=== PATIENT | female | born 1985 | race Caucasian/White ===

== ENCOUNTER 2020-09-30 07:50 | Outpatient (REF) | payer OTHER, SELFPAY ==
[2020-09-30 08:12] LABS: MANUAL DIFF FLAG NO
[2020-09-30 08:15] LABS: Basophils Absolute Auto 0.1 X10*3/uL (0.0-0.2); Basophils Percent Auto 0.9 % (0-2); Eosinophils Absolute Auto 0.1 X10*3/uL (0.0-0.4); Eosinophils Percent Auto 2.2 % (0-4); Hematocrit 39.3 % (37-47); Hemoglobin 13.1 g/dl (12.0-16.0); Imm Gran Abs Auto 0.01 X10*3/uL (0.00-0.03); Imm Gran Pct Auto 0.2 % (0.0-0.4); Lymphocytes Absolute Auto 1.7 X10*3/uL (1.2-4.9); Lymphocytes Percent Auto 31.1 % (20-40); Mean Corpuscular HGB Conc 33.3 g/dl (31.0-35.0); Mean Corpuscular Hemoglobin 29.7 pg (27.0-33.0); Mean Corpuscular Volume 89.1 fL (80-98); Mean Platelet Volume 9.4 fL (9.4-12.3); Monocytes Absolute Auto 0.4 X10*3/uL (0.1-1.2); Neutrophils Absolute Auto 3.2 X10*3/uL (2.0-8.3); Neutrophils Percent Auto 58.6 % (45-73); Platelet Count 249 X10*3/uL (160-400); Red Blood Count 4.41 X10*6/uL (4.20-5.50); Red Cell Distribution Width 12.6 % (11.0-16.0); White Blood Count 5.4 X10*3/uL (4.8-10.8)
[2020-09-30 08:42] LABS: Alanine Aminotransferase 11 U/L (0-31); Albumin Level 4.1 g/dL (3.5-5.0); Alkaline Phosphatase 56 U/L (39-117); Anion Gap 11 (12-20); Aspartate Amino Transferase 12 U/L (5-31); Bilirubin Total 0.5 mg/dL (0.0-1.0); Blood Urea Nitrogen 14 mg/dL (9-16); Calcium 8.6 mg/dL (8.4-10.2); Carbon Dioxide 26 mmol/L (22-29); Chloride 107 mmol/L (96-108); Cholesterol 150 mg/dL; Estimated Glomerular Filt Rate > 60; Glucose Fasting 89 mg/dL (60-99); HDL Cholesterol 60 mg/dL; LDL Cholesterol Calculated 76 mg/dl; Potassium 4.2 mmol/L (3.3-5.1); Sodium 140 mmol/L (135-145); Total Protein 6.2 g/dL (6.5-8.0); Triglycerides 73 mg/dL
== END 2020-09-30 07:51 | disposition home or self-care (01) ==
LOC: HO.LAB 07:50
PROVIDERS: PCP Internal Medicine; Visit Provider Internal Medicine
DX: Z00.00 Encounter for general adult medical examination without abnormal findings (principal); R31.1 Benign essential microscopic hematuria
CPT/HCPCS: 36415; 80053; 80061; 85025

== ENCOUNTER 2021-10-02 08:40 | Outpatient (REF) | payer OTHER, SELFPAY ==
[2021-10-02 09:06] LABS: MANUAL DIFF FLAG NO
[2021-10-02 09:27] LABS: Appearance Urine CLEAR; Color Urine YELLOW; Glucose Urine UA NEG (NEG); Leukocyte Esterase Urine NEG (NEG); Nitrite Urine NEG (NEG); PH 6.5 (5.0-8.0); Urine Blood NEG (NEG); Urine Ketones NEG (NEG); Urine Protein NEG (NEG-TRACE)
[2021-10-02 10:14] LABS: Basophils Absolute Auto 0.1 X10*3/uL (0.0-0.2); Eosinophils Absolute Auto 0.1 X10*3/uL (0.0-0.4); Eosinophils Percent Auto 2.2 % (0-4); Hematocrit 39.4 % (37.0-47.0); Hemoglobin 13.3 g/dl (12.0-16.0); Imm Gran Abs Auto 0.01 X10*3/uL (0.00-0.03); Imm Gran Pct Auto 0.2 % (0.0-0.4); Lymphocytes Absolute Auto 1.3 X10*3/uL (1.2-4.9); Mean Corpuscular HGB Conc 33.8 g/dl (31.0-35.0); Mean Corpuscular Hemoglobin 30.2 pg (27.0-33.0); Mean Corpuscular Volume 89.5 fL (80.0-98.0); Mean Platelet Volume 9.4 fL (9.4-12.3); Monocytes Absolute Auto 0.4 X10*3/uL (0.1-1.2); Monocytes Percent Auto 7.7 % (2-11); Neutrophils Absolute Auto 3.1 x10*3/uL (2.0-8.3); Neutrophils Percent Auto 61.9 % (45-73); Platelet Count 241 X10*3/uL (160-400); Red Cell Distribution Width 11.9 % (11.0-16.0)
[2021-10-02 10:33] LABS: Alanine Aminotransferase 13 U/L (0-31); Albumin Level 4.2 g/dL (3.5-5.0); Alkaline Phosphatase 47 U/L (39-117); Anion Gap 11 (12-20); Aspartate Amino Transferase 12 U/L (5-31); Bilirubin Total 0.9 mg/dL (0.0-1.0); Blood Urea Nitrogen 16 mg/dL (9-16); Calcium 9.3 mg/dL (8.4-10.2); Carbon Dioxide 25 mmol/L (22-29); Chloride 109 mmol/L (96-108); Cholesterol 155 mg/dL; Estimated Glomerular Filt Rate > 60; Glucose Fasting 84 mg/dL (60-99); HDL Cholesterol 58 mg/dL; LDL Cholesterol Calculated 89 mg/dl; Potassium 4.5 mmol/L (3.3-5.1); Sodium 140 mmol/L (135-145); Total Protein 6.4 g/dL (6.5-8.0); Triglycerides 40 mg/dL
== END 2021-10-02 08:41 | disposition home or self-care (01) ==
LOC: HO.LAB 08:40
PROVIDERS: PCP Internal Medicine; Visit Provider Internal Medicine
DX: Z00.00 Encounter for general adult medical examination without abnormal findings (principal); Z13.220 Encounter for screening for lipoid disorders
CPT/HCPCS: 36415; 80053; 80061; 81003; 85025

== ENCOUNTER 2022-10-14 11:04 | Outpatient (REF) | payer OTHER, SELFPAY ==
[2022-10-14 11:06] LABS: MANUAL DIFF FLAG NO
[2022-10-14 11:40] LABS: Basophils Absolute Auto 0.1 X10*3/uL (0.0-0.2); Basophils Percent Auto 1.2 % (0-2); Eosinophils Absolute Auto 0.2 X10*3/uL (0.0-0.4); Eosinophils Percent Auto 3.1 % (0-4); Hematocrit 40.5 % (37.0-47.0); Hemoglobin 13.3 g/dl (12.0-16.0); Imm Gran Abs Auto 0.01 X10*3/uL (0.00-0.03); Imm Gran Pct Auto 0.2 % (0.0-0.4); Lymphocytes Absolute Auto 1.7 X10*3/uL (1.2-4.9); Lymphocytes Percent Auto 34.9 % (20-40); Mean Corpuscular HGB Conc 32.8 g/dl (31.0-35.0); Mean Corpuscular Hemoglobin 30.1 pg (27.0-33.0); Mean Corpuscular Volume 91.6 fL (80.0-98.0); Mean Platelet Volume 9.7 fL (9.4-12.3); Monocytes Absolute Auto 0.4 X10*3/uL (0.1-1.2); Monocytes Percent Auto 7.9 % (2-11); Neutrophils Absolute Auto 2.6 x10*3/uL (2.0-8.3); Neutrophils Percent Auto 52.7 % (45-73); Platelet Count 256 X10*3/uL (160-400); Red Blood Count 4.42 X10*6/uL (4.20-5.50); Red Cell Distribution Width 12.1 % (11.0-16.0); White Blood Count 4.8 X10*3/uL (4.8-10.8)
[2022-10-14 11:45] LABS: Appearance Urine Clear; Color Urine Yellow; Glucose Urine UA Negative (Negative); Leukocyte Esterase Urine Negative (Negative); Nitrite Urine Negative (Negative); Urine Blood Negative (Negative); Urine Ketones Negative (Negative); Urine Protein Negative (Neg-Trace)
[2022-10-14 12:00] LABS: Alanine Aminotransferase 12 U/L (0-31); Albumin Level 3.9 g/dL (3.5-5.0); Alkaline Phosphatase 57 U/L (39-117); Anion Gap 12 (12-20); Aspartate Amino Transferase 12 U/L (5-31); Bilirubin Total 0.4 mg/dL (0.0-1.0); Blood Urea Nitrogen 14 mg/dL (9-16); Calcium 8.7 mg/dL (8.4-10.2); Carbon Dioxide 25 mmol/L (22-29); Chloride 106 mmol/L (96-108); Cholesterol 175 mg/dL; Estimated Glomerular Filt Rate > 60; Glucose Fasting 87 mg/dL (60-99); HDL Cholesterol 58 mg/dL; LDL Cholesterol Calculated 103 mg/dl; Potassium 3.9 mmol/L (3.3-5.1); Sodium 139 mmol/L (135-145); Total Protein 6.2 g/dL (6.5-8.0); Triglycerides 71 mg/dL
== END 2022-10-14 11:05 | disposition home or self-care (01) ==
LOC: HO.LNP 11:04
PROVIDERS: Visit Provider Internal Medicine
DX: Z00.00 Encounter for general adult medical examination without abnormal findings (principal)
CPT/HCPCS: 80053; 80061; 81003; 85025

== ENCOUNTER 2023-10-17 07:56 | Outpatient (REF) | payer OTHER, SELFPAY ==
[2023-10-17 10:51] LABS: MANUAL DIFF FLAG NO
[2023-10-17 10:54] LABS: Appearance Urine Clear; Color Urine Yellow; Glucose Urine UA Negative (Negative); Leukocyte Esterase Urine Small (1+) (Negative); Nitrite Urine Negative (Negative); UMIC TRIGGER UACC YES; Urine Blood Trace (Negative); Urine Ketones Negative (Negative); Urine Protein Negative (Neg-Trace)
[2023-10-17 10:58] LABS: Bacteria Urine 1+ (None Seen); Hyaline Casts Urine 0-2 /LPF (0-2); RBC Urine 0-2 /HPF (0-2); UACC Culture Trigger YES
[2023-10-17 11:02] LABS: Basophils Absolute Auto 0.1 X10*3/uL (0.0-0.2); Eosinophils Absolute Auto 0.1 X10*3/uL (0.0-0.4); Eosinophils Percent Auto 1.7 % (0-4); Hematocrit 41.2 % (37.0-47.0); Hemoglobin 13.9 g/dl (12.0-16.0); Imm Gran Abs Auto 0.02 X10*3/uL (0.00-0.03); Imm Gran Pct Auto 0.3 % (0.0-0.4); Lymphocytes Absolute Auto 1.7 X10*3/uL (1.2-4.9); Mean Corpuscular HGB Conc 33.7 g/dl (31.0-35.0); Mean Corpuscular Hemoglobin 29.6 pg (27.0-33.0); Mean Corpuscular Volume 87.7 fL (80.0-98.0); Mean Platelet Volume 8.9 fL (9.4-12.3); Monocytes Absolute Auto 0.4 X10*3/uL (0.1-1.2); Monocytes Percent Auto 7.2 % (2-11); Neutrophils Absolute Auto 3.5 x10*3/uL (2.0-8.3); Neutrophils Percent Auto 60.8 % (45-73); Platelet Count 286 X10*3/uL (160-400); Red Cell Distribution Width 11.9 % (11.0-16.0); White Blood Count 5.8 X10*3/uL (4.8-10.8)
[2023-10-17 11:14] LABS: Alanine Aminotransferase 12 U/L (0-31); Albumin Level 4.2 g/dL (3.5-5.0); Alkaline Phosphatase 70 U/L (39-117); Anion Gap 12 (12-20); Aspartate Amino Transferase 12 U/L (5-31); Bilirubin Total 0.4 mg/dL (0.0-1.0); Blood Urea Nitrogen 13 mg/dL (9-16); Calcium 8.8 mg/dL (8.4-10.2); Carbon Dioxide 27 mmol/L (22-29); Chloride 103 mmol/L (96-108); Cholesterol 187 mg/dL (<200); Estimated Glomerular Filt Rate > 60; Glucose Fasting 88 mg/dL (60-99); HDL Cholesterol 66 mg/dL (>40); LDL Cholesterol Calculated 106 mg/dL (<100); Potassium 3.8 mmol/L (3.3-5.1); Sodium 138 mmol/L (135-145); Total Protein 6.8 g/dL (6.5-8.0); Triglycerides 79 mg/dL (<150)
== END 2023-10-17 07:57 | disposition home or self-care (01) ==
LOC: HO.10HDL 07:56
PROVIDERS: Visit Provider Internal Medicine
DX: Z00.00 Encounter for general adult medical examination without abnormal findings (principal)
CPT/HCPCS: 36415; 80053; 80061; 81001; 85025; 87086

== ENCOUNTER 2023-10-31 11:30 | Outpatient (REF) | payer OTHER, SELFPAY ==
[2023-10-31 12:23] LABS: Appearance Urine Clear; Color Urine Yellow; Glucose Urine UA Negative (Negative); Leukocyte Esterase Urine Small (1+) (Negative); Nitrite Urine Negative (Negative); UMIC TRIGGER UACC YES; Urine Blood Negative (Negative); Urine Ketones Negative (Negative); Urine Protein Negative (Neg-Trace)
[2023-10-31 12:41] LABS: Bacteria Urine None Seen (None Seen); Hyaline Casts Urine 0-2 /LPF (0-2); RBC Urine 0-2 /HPF (0-2); Squamous Epithelial Cell Urine 0-2 /HPF (0-2); UACC Culture Trigger YES; WBC Urine 0-5 /HPF (0-5)
== END 2023-10-31 11:31 | disposition home or self-care (01) ==
LOC: HO.LNP 11:30
PROVIDERS: Visit Provider Internal Medicine
DX: R31.9 Hematuria, unspecified (principal)
CPT/HCPCS: 81001; 87086

== ENCOUNTER 2023-11-14 09:59 | Outpatient (AMB) | payer OTHER, SELFPAY ==
--- NOTE | 2023-11-14 10:01 | MHC.OFFVIS ---
Intake Vital Signs 11/14/23 10:02 Weight 224 lb BP 120/70 Blood Pressure Location Lt brachial Position Sitting Pulse 82 Pulse Source Pulse Oximeter Pulse Oximetry (%) 100 Oxygen Delivery Method Room Air Intake Visit Reasons: Asthma Allergies No Known Allergies [No Known Allergies*] Allergy (Unverified 11/14/23 10:05) Medication List - Last Reconciled 11/14/23 by Raegan Salazar LPN fluticasone furoate-vilanterol 200-25 mcg/dose (Breo Ellipta) 1 inh inhalation DAILY levalbuterol tartrate 45 mcg/actuation (Xopenex HFA) 2 puffs inhalation Q4-6H PRN ondansetron 4 mg PO Q8H PRN HPI Asthma HPI Details Nancy is a pleasant 38 year old female, never smoker with underlying asthma since childhood. He was referred by PCP for pulmonary evaluation. She reports worsening control of asthma with dyspnea on moderate exertion and longer recovery time of dyspnea. She reports intermittent dry cough and denies wheezing chest tightness. She denies any hospitalizations related to respiratory distress. She has been using Breo, although not consistently and uses Xopenex PRN with moderate effect. She reports seasonal allergies that are mild and controlled with antihistamines. She also reports upcoming evaluation with Neurology for worsening headaches. Of note, she reports loud snoring, witnessed apneic events, daytime somnolence and paroxysmal nocturnal dyspnea. Denies prior sleep study. She reports mother and siblings with asthma. She denies any occupational exposures. [facility] Social History (Updated 11/14/23 @ 10:07 by Raegan Salazar LPN) Patient Tobacco Use Status: Never used Tobacco Review of Systems Const Denies chills, Denies excessive sweating, Denies fever(s) and Denies night sweats Eyes Denies dry eyes, Denies irritation and Denies itchy eyes ENT Reports Normal hearing present, Denies nasal congestion, Denies nasal discharge, Denies post nasal drip and Denies sore throat Card Denies chest pain, Denies chest pain at rest, Denies chest pain with activity, Denies claudication, Denies leg edema, Denies dyspnea, Denies orthopnea and Denies paroxysmal nocturnal dyspnea Resp Denies chest congestion, Denies excessive phlegm production, Denies pain on inspiration, Denies pain with cough, Denies dyspnea, Denies stridor and Denies wheezing Musc Denies myalgias Neuro Reports Normal hearing present Endo Denies excessive sweating Soto/Lymph Denies lymphadenopathy Aller/Immun Denies itchy eyes, Denies seasonal rhinorrhea and Denies wheezing Physical Exam Vital Signs: Last Vital Signs Pulse 82 11/14/23 10:02 BP 120/70 11/14/23 10:02 Pulse Ox 100 11/14/23 10:02 Oxygen Delivery Method Room Air 11/14/23 10:02 Const General: cooperative, healthy appearing, comfortable, no acute distress, well developed and alert Nutritional Appearance: obese Orientation/consciousness: patient oriented x3 Limitations: no limitations HEENT Head: Yes normal to inspection, Yes normocephalic and Yes atraumatic Ears: hearing grossly normal bilaterally and external ears normal Eyes General: appearance normal, both eyes and all related structures Eyelids: Yes eyelids normal Sclerae: sclerae normal EOM: EOMs intact bilaterally Neck Neck: Yes normal visual inspection and Yes no lymphadenopathy Lymphatic: no lymphadenopathy noted Chest Chest palpation & inspection: normal inspection of the chest Resp Effort & Inspection: normal respiratory effort, able to speak in complete sentences, no audible wheezes, no cough, no stridor, not tachypneic, no tripod positioning and no use of accessory muscles Auscultation: clear to auscultation bilaterally Cardio Jugular venous distension: no JVD Rate: regular rate Rhythm: regular rhythm Skin Other: warm, dry General skin exam: no rashes or lesions noted Neuro General: patient oriented x3 Cranial nerves: Yes Normal hearing present Cognition (Neuro): normal cognition Gait exam (Neuro): Normal gait present Extrem General: Yes normal to inspection, Yes capillary refill normal, Yes no clubbing, cyanosis or edema and Yes no pedal edema Psych Appearance: grossly normal and well kempt Speech and movement: Normal speech and movement present and Clear speech present Affect: normal affect Attitude: cooperative Thought process: Normal thought process present Thought content: Normal thought content present Insight: Good insight present (Psych) Judgement: Good judgement present (Psych) Assessment & Plan Assessment & Plan (1) Asthma: Code(s): J45.909 - Unspecified asthma, uncomplicated (2) Paroxysmal nocturnal dyspnea: Code(s): R06.00 - Dyspnea, unspecified (3) Dyspnea: Code(s): R06.00 - Dyspnea, unspecified Plan Nancy reports worsening control of respiratory symptoms over the last year which is likely related to underlying asthma as well as obesity/deconditioning etiologies. Will send for PFT to thoroughly evaluate. At this time will hold off on any allergy testing as her symptoms are quite mild and controlled with OTC medication. Encouraged patient to restart Breo and attempt to adhere to daily use. Patient reports symptoms suggestive of obstructive sleep apnea, will send for sleep study. All questions were answered and patient is in agreement of plan. Will follow-up to review response to consistent use of Breo as well as PFT/home study results. Orders: Orders PFT pulmonary function test Today J45.909 - Unspecified asthma, uncomplicated RT home sleep study Today R06.00 - Dyspnea, unspecified Coding Level of Care Code New Pt Level 4 (96521) Diagnoses Asthma J45.909 Paroxysmal nocturnal dyspnea R06.00 Dyspnea R06.00
[2023-11-14 10:02] VITALS: BP 120/70; PULSE 82; O2SAT 100
== END 2023-11-14 10:29 | disposition home or self-care (01) ==
PROVIDERS: PCP Internal Medicine; Referring Provider Internal Medicine; Visit Provider Nurse Practitioner Family
DX: J45.909 Unspecified asthma, uncomplicated (principal); R06.00 Dyspnea, unspecified
CPT/HCPCS: 99204

== ENCOUNTER → 2023-11-14 09:59 | Outpatient (BNVA) | payer OTHER, SELFPAY | PROVIDERS: PCP Internal Medicine; Referring Provider Internal Medicine; Visit Provider Nurse Practitioner Family ==

== ENCOUNTER 2023-11-27 06:59 | Emergency (ER) | payer OTHER, SELFPAY ==
--- NOTE | ~2023-11-27 | XR_ITS ---
EXAMINATION: XR CHEST CLINICAL INFORMATION: Cough, shortness of breath and asthma COMPARISON: None available. TECHNIQUE: 2 views of the chest were obtained. FINDINGS: No significant abnormality is noted involving the heart, lungs, mediastinum, bony thorax or soft tissues. XR/XR chest 2V IMPRESSION: Unremarkable examination.
[2023-11-27 07:01] VITALS: BP 119/86; PULSE 104; RESP 20; TEMP 36.8; O2SAT 96; BMI 40.2
[2023-11-27 07:21] VITALS: O2SAT 97
[2023-11-27 07:25] VITALS: BP 135/65; PULSE 98; RESP 18; TEMP 36.7; O2SAT 97
--- NOTE | 2023-11-27 07:39 | ED_ITS ---
HPI - General Adult General Chief complaint: Upper Respiratory Symptoms Stated complaint: Diff breathing Time Seen by Provider: 11/27/23 07:30 History of Present Illness HPI narrative: The patient is a 38-year-old woman with a history of asthma. She is on a Breo inhaler regularly. She says that last week she traveled and went to a conference. Over the last several days she is developed worsening cough and chest tightness and shortness of breath. She feels this is typical of an as thmatic exacerbation but with a remarkably deepand congested cough. She has felt feverish but she has not taken her temperature. No pain or swelling in her legs. She has not on control. She is quite certain she has not . She says that she has had some coughing fits which have been incapacitating. Related Data Home Medications Medication Instructions Recorded Confirmed fluticasone furoate 200 1 inh inhalation DAILY 11/14/23 11/14/23 mcg-vilanterol 25 mcg/dose inhalation powder (Breo Ellipta) levalbuterol tartrate 45 2 puff inhalation Q4-6H PRN 11/14/23 11/14/23 mcg/actuation aerosol inhaler (Xopenex HFA) ondansetron 4 mg disintegrating 4 mg PO Q8H PRN nausea and vomiting 11/14/23 11/14/23 tablet Previous Rx's Medication Instructions Recorded azithromycin 250 mg tablet 250 mg PO DAILY 4 days #4 tabs 11/27/23 prednisone 20 mg tablet 20 mg PO DAILY #12 tabs 11/27/23 Allergies Allergy/AdvReac Type Severity Reaction Status Date / Time No Known Allergies Allergy Unverified 11/14/23 10:05 [No Known Allergies*] Review of Systems Review of Systems: Yes all other systems are reviewed and are negative [facility] Social History Social History (Updated 11/14/23 @ 10:07 by Raegan Salazar LPN) Patient Tobacco Use Status: Never used Tobacco Smoked in Last 30 Days: No Use of substances other than those prescribed or required for medical reasons: No Advance Directives: No Advance Directives Information Provided: No Physical Exam ED Vital Signs: Vital Signs - 24 hr 11/27/23 07:01 11/27/23 07:21 11/27/23 07:25 Temperature 98.2 F 98.1 F Pulse Rate 104 H 98 Respiratory Rate 20 18 Blood Pressure 119/86 135/65 Pulse Oximetry 96 97 97 Oxygen Delivery Method Room Air Room Air Room Air 11/27/23 08:03 11/27/23 08:20 Temperature 98.5 F Pulse Rate 94 94 Respiratory Rate 20 20 Blood Pressure 120/72 Pulse Oximetry 96 Oxygen Delivery Method Room Air BMI result Body Mass Index 40.2 Const Other: The patient is awake and alert. She had significant coughing episodes which were characterized by a very deep and congested cough, almost croupy. Between coughing episodes she did not seem in distress. HENMT Other: Face is symmetrical. Mucous membranes moist. Posterior pharynx is unremarkable. Eyes Other: Pupils are round equal, conjunctivae clear Neck Other: No cervical adenopathy. Resp Other: The patient had a frequent cough which was deep and congested. No increased work of breathing. Auscultation when the patient was not coughing revealed fairly clear lungs. With coughing there was significant wheezing. Cardio Rate: regular rate Rhythm: regular rhythm Heart sounds: S1 normal heart sound present and S2 normal heart sound present Skin Other: The skin is dry and unremarkable Neuro Other: The patient is awake, alert, appropriate. Mental status is normal. Patient is grossly neurologically intact. Extrem Other: No calf swelling or tenderness. No asymmetry. Medications Administered Discontinued Medications Generic Name Dose Route Start Last Admin Trade Name Razaq PRN Reason Stop Dose Admin Albuterol/Ipratropium 3 ml 11/27/23 07:38 11/27/23 08:19 Albuterol/Iprat 2.5/0.5mg 3 Ml Ampul.Neb INHALE 11/27/23 07:39 3 ml ONCE ONE Administration Azithromycin 500 mg 11/27/23 09:20 11/27/23 09:25 Azithromycin 500 Mg Tablet PO 11/27/23 09:21 500 mg ONCE ONE Administration Prednisone 60 mg 11/27/23 09:20 11/27/23 09:25 Prednisone 20 Mg Tablet PO 11/27/23 09:21 60 mg ONCE ONE Administration Medical Decision Making Medical Decision Making [facility] Narrative: The patient is a 38-year-old woman with a history of asthma who presents with 3 or 4 days of a worsening cough syndrome characterized by a very deep and congested cough which almost sounds croupy. Her chest x-ray is negative. Her viral swab is negative for influenza, RSV, and COVID. This seems to be a case of asthmatic bronchitis. She will be treated with a course of azithromycin and prednisone. Lab Data Labs: Lab Results 11/27/23 Range/Units 07:59 Influenza Type A (PCR) NEGATIVE (Negative) Influenza Type B (PCR) NEGATIVE (Negative) RSV RNA Qual (PCR) NEGATIVE (Negative) SARS-CoV-2 RNA (RT-PCR) NEGATIVE (Negative) Discharge Plan Discharge Clinical Impression: Acute asthmatic bronchitis, Cough Patient Disposition: Home, Self-Care Instructions: Asthma (ED) Additional Instructions: Your chest x-ray is clear and you have tested negative for the flu, RSV, and COVID. Please take the azithromycin and prednisone once a day as prescribed. Next dose for each of these medications tomorrow. Continue to use your albuterol every 4 hours as needed for coughing and shortness of breath. Please follow up with your powdered metal supervisor or your primary care doctor for a dditional advice as needed. Return to the emergency room if your breathing is significantly worse. Prescriptions: New azithromycin 250 mg tablet 250 mg PO DAILY 4 Days Qty: 4 0RF Rx Instructions: start on day 2 of therapy prednisone 20 mg tablet 20 mg PO DAILY Qty: 12 0RF Rx Instructions: Take 3 tablets by mouth daily for 2 days then 2 tablets by mouth daily for 3 days No Action levalbuterol tartrate [Xopenex HFA] 45 mcg/actuation HFA aerosol inhaler 2 puff inhalation Q4-6H PRN fluticasone furoate-vilanterol [Breo Ellipta] 200-25 mcg/dose blister with dev ice 1 inh inhalation DAILY ondansetron 4 mg tablet,disintegrating 4 mg PO Q8H PRN (Reason: nausea and vomiting) Referrals: Frankie Hammonds MD [Primary Care Provider] - (Asthmatic bronchitis) Philly Mcgarry NP [Nurse Practitioner] - (Asthmatic bronchitis)
[2023-11-27 08:03] VITALS: BP 120/72; PULSE 94; RESP 20; TEMP 36.9; O2SAT 96
[2023-11-27] MEDS: Albuterol/Iprat 2.5/0.5MG 3 ML AMPUL.NEB INHALE (08:19)
[2023-11-27 08:20] VITALS: PULSE 94; RESP 20; O2SAT 96
[2023-11-27 09:13] LABS: Influenza A PCR NEGATIVE (Negative); Influenza B PCR NEGATIVE (Negative); Resp Syncy Virus RNA Qual PCR NEGATIVE (Negative); SARS COV2 PCR INHOUSE NEGATIVE (Negative)
[2023-11-27] MEDS: predniSONE 20 MG TABLET 60 MG PO (09:25)
[2023-11-27] MEDS: Azithromycin 500 MG TABLET PO (09:25)
[2023-11-27 09:34] VITALS: BP 120/72; PULSE 94; RESP 18; TEMP 36.9; O2SAT 97
== END 2023-11-27 09:35 | disposition home or self-care (01) ==
PROVIDERS: Emergency Provider Emergency Medicine; PCP Internal Medicine
DX: J45.909 Unspecified asthma, uncomplicated (principal); R06.02 Shortness of breath; R05.9 Cough, unspecified; Z20.822 Contact with and (suspected) exposure to COVID-19; Z11.52 Encounter for screening for COVID-19
CPT/HCPCS: 0241U; 71046; 94640; 99283; 99284; 99285

== ENCOUNTER 2023-12-01 08:45 | Outpatient (AMB) | payer OTHER, SELFPAY ==
--- NOTE | 2023-12-01 08:47 | MHC.OFFVIS ---
Intake Vital Signs 12/01/23 08:55 BP 118/64 Pulse 89 Pulse Source Pulse Oximeter Pulse Oximetry (%) 96 Oxygen Delivery Method Room Air Intake Visit Reasons: Asthma [employer] Traffic [employer] Manager Required: No Surveyor Instrument Assistant: Surveyor Instrument Assistant offered & declined Accompanied by: Self / Same As Patient Allergies No Known Allergies [No Known Allergies*] Allergy (Unverified 12/01/23 08:57) Medication List - Last Reconciled 12/01/23 by Bia France LPN azithromycin 250 mg PO DAILY 4 days fluticasone furoate-vilanterol 200-25 mcg/dose (Breo Ellipta) 1 inh inhalation DAILY levalbuterol tartrate 45 mcg/actuation (Xopenex HFA) 2 puffs inhalation Q4-6H PRN ondansetron 4 mg PO Q8H PRN prednisone 20 mg PO DAILY HPI Asthma HPI Details Nancy is a pleasant 38 year old female, never smoker with underlying asthma since childhood. At the last visit, she was advised to be more consistent with Breo and reevaluate at the next visit after being compliant with use. Prior she was using infrequently, reporting intermittent dry cough and dyspnea. She has an upcoming PFT and sleep study scheduled. Today she presents for an acute visit. She was evaluated in the ED on 11/26 and treated for asthmatic bronchitis with a zpak and prednisone after recent travel. CXR unremarkable, respiratory panel negative. She reports symptoms of increased dyspnea and deep harsh croup-like cough have moderately improved. She completed zpak today and will finish prednisone tomorrow. She notes decrease in frequency of cough however still croup like with occasional dyspnea and wheezing. Denies fevers or chills. When she was in the ED, she noted significant improvement with duoneb and obtained nebulizer. Unfortunately, she only received albuterol for nebulizer which has not been as effective. [facility] Social History (Updated 12/01/23 @ 08:58 by Bia France LPN) Patient Tobacco Use Status: Never used Tobacco Smoked in Last 30 Days: No Review of Systems Const Denies chills, Denies excessive sweating, Denies fever(s) and Denies night sweats Eyes Denies dry eyes, Denies irritation and Denies itchy eyes ENT Reports Normal hearing present, Denies nasal congestion, Denies nasal discharge, Denies post nasal drip and Denies sore throat Card Denies chest pain, Denies chest pain at rest, Denies chest pain with activity, Denies claudication, Denies leg edema and Reports orthopnea Resp Denies chest congestion, Denies excessive phlegm production, Denies pain on inspiration, Denies pain with cough and Denies stridor Musc Denies myalgias Neuro Reports Normal hearing present Endo Denies excessive sweating Soot/Lymph Denies lymphadenopathy Aller/Immun Denies itchy eyes and Denies seasonal rhinorrhea Physical Exam Vital Signs: Last Vital Signs Pulse 89 12/01/23 08:55 BP 118/64 12/01/23 08:55 Pulse Ox 96 12/01/23 08:55 Oxygen Delivery Method Room Air 12/01/23 08:55 Const General: cooperative, no acute distress, well developed and alert Orientation/consciousness: patient oriented x3 Limitations: no limitations HEENT Head: Yes normal to inspection, Yes normocephalic and Yes atraumatic Ears: hearing grossly normal bilaterally and external ears normal Eyes General: appearance normal, both eyes and all related structures Eyelids: Yes eyelids normal Sclerae: sclerae normal EOM: EOMs intact bilaterally Neck Neck: Yes normal visual inspection and Yes no lymphadenopathy Lymphatic: no lymphadenopathy noted Chest Chest palpation & inspection: normal inspection of the chest Resp Other: post exhalation cough Effort & Inspection: normal respiratory effort, able to speak in complete sentences, no audible wheezes, no stridor, not tachypneic, no tripod positioning and no use of accessory muscles Auscultation: clear to auscultation bilaterally and no wheezes Cardio Jugular venous distension: no JVD Rate: regular rate Rhythm: regular rhythm Skin Other: warm, dry General skin exam: no rashes or lesions noted Neuro General: patient oriented x3 Cranial nerves: Yes Normal hearing present Cognition (Neuro): normal cognition Gait exam (Neuro): Normal gait present Extrem General: Yes normal to inspection, Yes capillary refill normal, Yes no clubbing, cyanosis or edema and Yes no pedal edema Psych Appearance: grossly normal and well kempt Speech and movement: Normal speech and movement present and Clear speech present Affect: normal affect Attitude: cooperative Thought process: Normal thought process present Thought content: Normal thought content present Insight: Good insight present (Psych) Judgement: Good judgement present (Psych) Results Reviewed Results Reviewed: [address] [address] XRay Report Signed Patient: Nancy Golden MR#: [id number] : 1985 Acct:[id number] Age/Sex: 38 / F ADM Date: 11/27/23 Loc: HO.ED Attending Dr: Ordering Physician: Steven Marcelino MD Date of Service: 11/27/23 Procedure(s): XR chest 2V Accession Number(s): [id number] cc: Frankie Hammonds MD; Steven Marcelino MD~ EXAMINATION: XR CHEST CLINICAL INFORMATION: Cough, shortness of breath and asthma COMPARISON: None available. TECHNIQUE: 2 views of the chest were obtained. FINDINGS: No significant abnormality is noted involving the heart, lungs, mediastinum, bony thorax or soft tissues. XR/XR chest 2V IMPRESSION: Unremarkable examination. Assessment & Plan Assessment & Plan (1) Asthma: Code(s): J45.909 - Unspecified asthma, uncomplicated (2) Dyspnea: Code(s): R06.00 - Dyspnea, unspecified (3) Bronchitis: Code(s): J40 - Bronchitis, not specified as acute or chronic Plan Will treat with augmentin as only moderate improvement in symptoms and still with harsh croup like cough. On exam no wheezing appreciated, however with postexhalation cough. Improved after nebulizer. Will send duoneb for home use. Advised to continue Breo during this time.All questions were answered and patient is in agreement of plan. Will follow up for regularly scheduled appointment. Medications: New amoxicillin-pot clavulanate 875-125 mg 1 tab PO Q12H 20 tabs 0RF ipratropium-albuterol 0.5 mg-3 mg(2.5 mg base)/3 mL 3 mL inhalation Q6H PRN 180 mL 2RF wheezing J45.909 - Unspecified asthma, uncomplicated albuterol sulfate 90 mcg/actuation 2 puffs inhalation Q4-6H PRN 8.5 grams 3RF shortness of breath or wheezing Coding Level of Care Code Est Pt Level 4 (99795) Diagnoses Asthma J45.909 Dyspnea R06.00 Bronchitis J40
[2023-12-01 08:55] VITALS: BP 118/64; PULSE 89; O2SAT 96
== END 2023-12-01 09:31 | disposition home or self-care (01) ==
PROVIDERS: PCP Internal Medicine; Visit Provider Nurse Practitioner Family
DX: J45.909 Unspecified asthma, uncomplicated (principal); R06.00 Dyspnea, unspecified; J40 Bronchitis, not specified as acute or chronic
CPT/HCPCS: 99214

== ENCOUNTER → 2023-12-01 08:45 | Outpatient (BNVA) | payer OTHER, SELFPAY | PROVIDERS: PCP Internal Medicine; Visit Provider Nurse Practitioner Family | DX: J45.909 Unspecified asthma, uncomplicated (principal); R06.00 Dyspnea, unspecified | CPT/HCPCS: 94640 ==

== ENCOUNTER 2023-12-21 07:39 | Outpatient (REF) | payer OTHER, SELFPAY ==
--- NOTE | ~2023-12-21 | FL_ITS ---
EXAMINATION: XR FLUOROSCOPY UPPER GI WITH AIR CLINICAL INFORMATION: Dysphagia. Reflux COMPARISON: None TECHNIQUE: Fluoroscopic air contrast upper GI examination was performed utilizing standard techniques with thin and thick barium and effervescent granules. Numerous spot images were obtained. FINDINGS: Lateral cine images of the oropharynx and hypopharynx demonstrates a delayed swallow mechanism with normal epiglottic inversion and soft palate elevation. No tracheal penetration, glottic or subglottic aspiration identified. No nasopharyngeal reflux present. Hypopharyngeal structures appear normal without evidence of mass or diverticulum. There was no significant cricopharyngeal achalasia. Dual and single contrast images of the esophagus demonstrate normal caliber, contour, and mucosal pattern. No evidence of stricture, mass, or ulcerations identified. Esophageal peristalsis was normal. A moderate-sized type I hiatal hernia is present. There is a wide open Schatzki's ring present. No significant gastroesophageal reflux was seen during the course of the examination and on reflux views. Dual contrast and single contrast images of the stomach demonstrated normal contour and mucosal pattern without evidence of mass, ulceration, or other abnormality. Contrast freely passed into the gastric antrum and duodenal bulb without delay. Single and air-contrast images of the duodenal bulb demonstrate no abnormality. The duodenal sweep has a normal appearance, course, and mucosal fold appearance. No malrotation. The imaged proximal jejunum has a normal fold pattern and caliber. FLUOROSCOPY TIME: 3 minutes 24 seconds Number of Spot Images: 8 Number of Cine: 10 DOSE AREA PRODUCT: 2450 uGy-m2 (microgray-meter squared) FL/FL upper GI w air IMPRESSION: 1. Delayed swallowing mechanism, however no aspiration was seen during this examination. 2. Moderate-sized type I hiatal hernia. 3. Wide open Schatzki's ring. This procedure was performed by Igor Mason PA-C, and supervised by Dr. Allen
== END 2023-12-21 07:40 | disposition home or self-care (01) ==
LOC: HO.XRAY 07:39
PROVIDERS: PCP Internal Medicine; Visit Provider Internal Medicine
DX: R13.19 Other dysphagia (principal)
CPT/HCPCS: 74246

== ENCOUNTER → 2023-12-21 07:43 | Outpatient (BNV) | payer OTHER, SELFPAY | PROVIDERS: PCP Internal Medicine; Visit Provider Physician Assistant Surgical | DX: K22.2 Esophageal obstruction (principal) | CPT/HCPCS: 74246 ==

== ENCOUNTER 2023-12-26 12:40 | Outpatient (REF) | payer OTHER, SELFPAY ==
[2023-12-26 09:16] VITALS: PULSE 76; RESP 16; O2SAT 99
--- NOTE | 2023-12-26 16:04 | PFT_ITS ---
Flows: FEV1: 113 % of predicted at 3.17 L FVC: 109 % of predicted at 3.73 L FEV1/FVC: 85 % Bronchodilator response: Absent Volumes: Total lung capacity: 102 % of predicted at 4.97 L Residual volume: 102 % of predicted at 1.24 L Slow vital capacity: 101 % of predicted at 3.73 L Expiratory reserve volume: 49 % of predicted at 0.54 L Diffusion capacity: Normal Impression: No obstructive or restrictive ventilatory defect. No bronchodilator response. Decreased expiratory reserve volume suggests extrathoracic restriction likely secondary to abdominal obesity. MTDD
== END 2023-12-26 12:41 | disposition home or self-care (01) ==
LOC: HO.RESP 12:40
PROVIDERS: PCP Internal Medicine; Visit Provider Nurse Practitioner Family
DX: J45.909 Unspecified asthma, uncomplicated (principal)
CPT/HCPCS: 94010; 94640; 94727; 94729

== ENCOUNTER → 2023-12-26 16:04 | Outpatient (BNV) | payer OTHER, SELFPAY | PROVIDERS: PCP Internal Medicine; Visit Provider Internal Medicine Pulmonary Disease | DX: J45.909 Unspecified asthma, uncomplicated (principal) | CPT/HCPCS: 94060; 94727; 94729 ==

== ENCOUNTER → 2024-01-29 08:09 | Outpatient (REF) | payer OTHER, SELFPAY | LOC: HO.SL 08:09 | PROVIDERS: PCP Internal Medicine; Visit Provider Nurse Practitioner Family | DX: Z13.89 Encounter for screening for other disorder (principal) ==

== ENCOUNTER 2024-04-09 08:21 | Outpatient (AMB) | payer OTHER, SELFPAY ==
--- NOTE | 2024-04-09 08:24 | A.OFFVIS_ITS ---
Vital Signs 04/09/24 08:25 Height 5 ft 2 in Weight 228 lb BMI 41.7 BP 110/78 Blood Pressure Location Rt brachial Position Sitting Pulse 79 Pulse Source Pulse Oximeter Pulse Oximetry (%) 97 Oxygen Delivery Method Room Air Intake Visit Reasons: asthma Allergies No Known Allergies [No Known Allergies*] Allergy (Unverified 04/09/24 08:27) HPI HPI asthma: Details: Nancy is a pleasant 38 year old female, never smoker with underlying asthma since childhood. At the last visit, she was treated with augmentin after failing azithromycin for bronchitic symptoms and given Duoneb for home use, in addition to Breo. She reports respiratory symptoms have been well controlled, requiring Duoneb/albuterol MDI infrequently. Today she presents to review PFT results. She denies any recent urgent care visits or hospitalizations. Of note, she also had a sleep study completed however results not available today. PENDING SALE TO [facility] Social History (Reviewed 04/09/24 @ 08:29 by Naya Schneider [facility]) Patient Tobacco Use Status: Never used Tobacco Review of Systems Const Denies chills, Denies excessive sweating, Denies fever(s) and Denies night sweats Eyes Denies dry eyes, Denies irritation and Denies itchy eyes ENT Reports Normal hearing present, Denies nasal congestion, Denies nasal discharge, Denies post nasal drip and Denies sore throat Card Denies chest pain, Denies chest pain at rest, Denies chest pain with activity, Denies claudication, Denies leg edema, Denies dyspnea on exertion and Reports orthopnea Resp Denies chest congestion, Denies cough, Denies excessive phlegm production, Denies pain on inspiration, Denies pain with cough, Denies dyspnea on exertion, Denies stridor and Denies wheezing Musc Denies myalgias Neuro Reports Normal hearing present Endo Denies excessive sweating Soto/Lymph Denies lymphadenopathy Aller/Immun Denies itchy eyes, Denies seasonal rhinorrhea and Denies wheezing Physical Exam Vital Signs: Last Vital Signs Pulse 79 04/09/24 08:25 BP 110/78 04/09/24 08:25 Pulse Ox 97 04/09/24 08:25 Oxygen Delivery Method Room Air 04/09/24 08:25 BMI result Body Mass Index 41.7 Const General: cooperative, healthy appearing, comfortable, no acute distress, well developed and alert Nutritional Appearance: obese Orientation/consciousness: patient oriented x3 Limitations: no limitations HEENT Head: Yes normal to inspection, Yes normocephalic and Yes atraumatic Ears: hearing grossly normal bilaterally and external ears normal Eyes General: appearance normal, both eyes and all related structures Eyelids: Yes eyelids normal Sclerae: sclerae normal EOM: EOMs intact bilaterally Neck Neck: Yes normal visual inspection and Yes no lymphadenopathy Lymphatic: no lymphadenopathy noted Chest Chest palpation & inspection: normal inspection of the chest Resp Effort & Inspection: normal respiratory effort, able to speak in complete sentences, no audible wheezes, no cough, no stridor, not tachypneic, no tripod positioning and no use of accessory muscles Auscultation: clear to auscultation bilaterally Cardio Jugular venous distension: no JVD Rate: regular rate Rhythm: regular rhythm Skin Other: warm, dry General skin exam: no rashes or lesions noted Neuro General: patient oriented x3 Cranial nerves: Yes Normal hearing present Cognition (Neuro): normal cognition Gait exam (Neuro): Normal gait present Extrem General: Yes normal to inspection, Yes capillary refill normal, Yes no clubbing, cyanosis or edema and Yes no pedal edema Psych Appearance: grossly normal and well kempt Speech and movement: Normal speech and movement present and Clear speech present Affect: normal affect Attitude: cooperative Thought process: Normal thought process present Thought content: Normal thought content present Insight: Good insight present (Psych) Judgement: Good judgement present (Psych) Assessment & Plan Assessment & Plan (1) Asthma: Code(s): J45.909 - Unspecified asthma, uncomplicated Category: Medical Plan Reviewed PFT which revealed no obstructive or restrictive ventilatory defect. No bronchodilator response. Decreased expiratory reserve volume suggests extrathoracic restriction likely secondary to abdominal obesity. DLCO slightly elevated at 126%. At this time, Nancy reports good control of respiratory symptoms, advised to continue and will send in refills. Will reach out to RT to follow up on home sleep study results as they were not in system, although patient had completed on 01/29/24.All questions were answered and patient is in agreement of plan. Will follow up in 6-9 months or sooner if needed. Medications: New fluticasone furoate-vilanterol 200-25 mcg/dose (Breo Ellipta) 1 inh inhalation DAILY 60 ea 6RF Coding Level of Care Code Est Pt Level 4 (30487) Diagnoses Asthma J45.909
[2024-04-09 08:25] VITALS: BP 110/78; PULSE 79; O2SAT 97; BMI 41.7
== END 2024-04-09 09:29 | disposition home or self-care (01) ==
PROVIDERS: PCP Internal Medicine; Visit Provider Nurse Practitioner Family
DX: J45.909 Unspecified asthma, uncomplicated (principal)
CPT/HCPCS: 99214

== ENCOUNTER → 2024-04-09 08:21 | Outpatient (BNVA) | payer OTHER, SELFPAY | PROVIDERS: PCP Internal Medicine; Visit Provider Nurse Practitioner Family ==

== ENCOUNTER → 2024-05-21 14:04 | Outpatient (REF) | payer OTHER, SELFPAY | LOC: HO.SL 14:04 | PROVIDERS: PCP Internal Medicine; Visit Provider Nurse Practitioner Family | DX: R06.09 Other forms of dyspnea (principal); R06.83 Snoring; R40.0 Somnolence | CPT/HCPCS: 95806 ==

== ENCOUNTER → 2024-05-21 14:24 | Outpatient (BNV) | payer OTHER, SELFPAY | PROVIDERS: PCP Internal Medicine; Visit Provider Internal Medicine | DX: R06.83 Snoring (principal) | CPT/HCPCS: 95806 ==

== ENCOUNTER 2024-06-14 09:55 | Outpatient (AMB) | payer OTHER, SELFPAY ==
--- NOTE | 2024-06-14 09:53 | A.OFFVIS_ITS ---
Vital Signs 06/14/24 09:59 Height 5 ft 2 in Weight 232 lb 8 oz BMI 42.5 BP 126/84 Blood Pressure Location Lt brachial Position Sitting Pulse 83 Pulse Source Pulse Oximeter Pulse Oximetry (%) 100 Oxygen Delivery Method Room Air Intake Visit Reasons: asthma Allergies No Known Allergies [No Known Allergies*] Allergy (Unverified 06/14/24 10:01) HPI HPI asthma: Details: Nancy is a pleasant 38 year old female, never smoker with underlying asthma since childhood. At baseline, she has been well controlled on Breo and albuterol MDI. She denies any respiratory symptoms currently. She denies any recent urgent care visits or hospitalizations. Today she presents to review results of home sleep study. [facility] Social History Patient Tobacco Use Status: Never used Tobacco Review of Systems Const Denies chills, Denies excessive sweating, Denies fever(s) and Denies night sweats Eyes Denies dry eyes, Denies irritation and Denies itchy eyes ENT Reports Normal hearing present, Denies nasal congestion, Denies nasal discharge, Denies post nasal drip and Denies sore throat Card Denies chest pain, Denies chest pain at rest, Denies chest pain with activity, Denies claudication, Denies leg edema, Denies dyspnea on exertion and Reports orthopnea Resp Denies chest congestion, Denies cough, Denies excessive phlegm production, Denies pain on inspiration, Denies pain with cough, Denies dyspnea on exertion, Denies stridor and Denies wheezing Musc Denies myalgias Neuro Reports Normal hearing present Endo Denies excessive sweating Soto/Lymph Denies lymphadenopathy Aller/Immun Denies itchy eyes, Denies seasonal rhinorrhea and Denies wheezing Physical Exam Vital Signs: Last Vital Signs Pulse 83 06/14/24 09:59 BP 126/84 06/14/24 09:59 Pulse Ox 100 06/14/24 09:59 Oxygen Delivery Method Room Air 06/14/24 09:59 BMI result Body Mass Index 42.5 Const General: cooperative, healthy appearing, comfortable, no acute distress, well developed and alert Nutritional Appearance: obese Orientation/consciousness: patient oriented x3 Limitations: no limitations HEENT Head: Yes normal to inspection, Yes normocephalic and Yes atraumatic Ears: hearing grossly normal bilaterally and external ears normal Eyes General: appearance normal, both eyes and all related structures Eyelids: Yes eyelids normal Sclerae: sclerae normal EOM: EOMs intact bilaterally Neck Neck: Yes normal visual inspection and Yes no lymphadenopathy Lymphatic: no lymphadenopathy noted Chest Chest palpation & inspection: normal inspection of the chest Resp Effort & Inspection: normal respiratory effort, able to speak in complete sentences, no audible wheezes, no cough, no stridor, not tachypneic, no tripod positioning and no use of accessory muscles Auscultation: clear to auscultation bilaterally Cardio Jugular venous distension: no JVD Rate: regular rate Rhythm: regular rhythm Skin Other: warm, dry General skin exam: no rashes or lesions noted Neuro General: patient oriented x3 Cranial nerves: Yes Normal hearing present Cognition (Neuro): normal cognition Gait exam (Neuro): Normal gait present Extrem General: Yes normal to inspection, Yes capillary refill normal, Yes no clubbing, cyanosis or edema and Yes no pedal edema Psych Appearance: grossly normal and well kempt Speech and movement: Normal speech and movement present and Clear speech present Affect: normal affect Attitude: cooperative Thought process: Normal thought process present Thought content: Normal thought content present Insight: Good insight present (Psych) Judgement: Good judgement present (Psych) Assessment & Plan Assessment & Plan (1) Asthma: Code(s): J45.909 - Unspecified asthma, uncomplicated Category: Medical Plan Reviewed home sleep study which was negative for SHAY. She does note better control of morning headaches over the last month and is actively working with neurology. At this time, Nancy reports good control. All questions were answered and patient is in agreement of plan. Will follow up in 3-6 months or sooner if needed. Coding Level of Care Code Est Pt Level 3 (00500) Diagnoses Asthma J45.909
[2024-06-14 09:59] VITALS: BP 126/84; PULSE 83; O2SAT 100; BMI 42.5
== END 2024-06-14 10:21 | disposition home or self-care (01) ==
PROVIDERS: PCP Internal Medicine; Visit Provider Nurse Practitioner Family
DX: J45.909 Unspecified asthma, uncomplicated (principal)
CPT/HCPCS: 99213

== ENCOUNTER → 2024-06-14 09:55 | Outpatient (BNVA) | payer OTHER, SELFPAY | PROVIDERS: PCP Internal Medicine; Visit Provider Nurse Practitioner Family ==

== ENCOUNTER 2024-08-27 07:38 | Emergency (ER) | payer OTHER, SELFPAY ==
--- NOTE | ~2024-08-27 | CT_ITS ---
EXAMINATION: CT ABDOMEN AND PELVIS WITH CONTRAST CLINICAL INFORMATION: Abdominal pain COMPARISON: None available. TECHNIQUE: Multidetector volumetric images were obtained from the superior aspect of the liver through the pubic symphysis following administration 85 mL of Omnipaque 350 intravenous contrast. Sagittal and coronal reformatted images were obtained on the technologist's workstation. Oral contrast: No This CT examination was performed using dose optimization techniques as appropriate, variously including the following: *Automated exposure control *Adjustment of mA and/or kV according to patient size (this includes techniques or standardized protocols for targeted exams where dose is matched to indication/reason for exam; i.e. extremities or head) *Use of iterative reconstruction technique DLP: 1097 mGy-cm FINDINGS: LUNG BASES: There is bibasilar dependent atelectasis or scarring. Heart size is normal. A small hiatal hernia is noted. LIVER, GALLBLADDER, AND BILIARY TREE: The liver is normal in size, shape, and attenuation. No focal hepatic lesion or biliary ductal dilatation is present. The gallbladder is unremarkable with no evidence of radiopaque gallstones, gallbladder wall thickening, or obvious pericholecystic inflammatory changes. PANCREAS: Unremarkable. SPLEEN: Unremarkable. ADRENAL GLANDS: Unremarkable. KIDNEYS AND URETERS: The kidneys are normal in size, shape, and attenuation. No hydronephrosis, hydroureter, or calculi seen. No perinephric stranding. BLADDER: Unremarkable. GASTROINTESTINAL TRACT: The small and large bowel are unremarkable. The appendix is unremarkable. ABDOMINAL WALL: Tiny umbilical hernia containing fat LYMPH NODES: Normal. VASCULAR: Unremarkable. PELVIC VISCERA: There is a large uterine mass likely arising from the fundus and extending to the level of umbilicus. It measures at least 12.9 cm in the craniocaudad length and 10.3 cm wide. It deviates the endometrial canal to the right. There are additional lesions in the lower uterine segment. These are most suggestive of fibroids. There is no free fluid in the cul-de-sac. OSSEOUS STRUCTURES: No aggressive lytic or sclerotic process seen. CT/CT abdomen pelvis w IV con IMPRESSION: Large fundal uterine mass likely fibroid. There are additional masses seen in the lower uterine segment. Recommend ultrasound correlation. Otherwise no acute intra-abdominal process seen. Fleischner guidelines were followed. Electronically signed by: Mihai Butterfield MD 08/27/2024 12:30 PM EST RP
--- NOTE | ~2024-08-27 | US_ITS ---
EXAMINATION: US PELVIS CLINICAL INFORMATION: Fibroid disease COMPARISON: CT abdomen and pelvis 08/27/2024 TECHNIQUE: Ultrasound of the pelvis is performed using both transabdominal and transvaginal transducers along with Doppler. Transvaginal imaging is performed due to inadequate visualization transabdominally. FINDINGS: Uterus: The uterus is anteverted and measures 16.9 x 9.5 x 10.1 cm. The double wall endometrial thickness is not visualized.. There are multiple hypoechoic uterine lesion seen suggestive of fibroid. The largest fibroid in the fundus measures 10.0 x 9.4 x 9.6 cm. Hyper lesion in the right anterior body the uterus measures 3.5 x 2.9 x 2.9 cm. A smaller hypoechoic lesion in the posterior body of uterus measures 2.0 x 1.3 x 1.7 cm and slightly larger lesion in anterior lower uterine segment measures 6.7 x 5.1 x 6.6 cm. Adnexa: Both ovaries are visualized. There is normal color flow to the adnexa. There is no ovarian torsion. There is no pelvic ascites or fluid collection. Both ovaries are not visualized. There is no free fluid in cul-de-sac US/US pelvic and transvaginal IMPRESSION: Multiple uterine fibroids large is in the fundus measuring 10 cm. The endometrial canal is not visualized due to fibroids. Ovaries are not seen. Electronically signed by: Mihai Butterfield MD 08/27/2024 02:09 PM [facility]
[2024-08-27 07:42] VITALS: BP 130/80; PULSE 100; RESP 16; TEMP 36.1; O2SAT 100; BMI 41.7
[2024-08-27 07:56] LABS: Basophils Percent Auto 0.2 % (0-2); Eosinophils Percent Auto 0.1 % (0-4); Hematocrit 42.9 % (37.0-47.0); Hemoglobin 14.8 g/dl (12.0-16.0); Imm Gran Abs Auto 0.05 X10*3/uL (0.00-0.03); Imm Gran Pct Auto 0.3 % (0.0-0.4); Lymphocytes Absolute Auto 0.3 X10*3/uL (1.2-4.9); Lymphocytes Percent Auto 1.7 % (20-40); MANUAL DIFF FLAG SCAN; Mean Corpuscular HGB Conc 34.5 g/dl (31.0-35.0); Mean Corpuscular Hemoglobin 29.2 pg (27.0-33.0); Mean Corpuscular Volume 84.6 fL (80.0-98.0); Mean Platelet Volume 8.7 fL (9.4-12.3); Monocytes Absolute Auto 0.5 X10*3/uL (0.1-1.2); Monocytes Percent Auto 3.3 % (2-11); Neutrophils Absolute Auto 13.8 x10*3/uL (2.0-8.3); Neutrophils Percent Auto 94.4 % (45-73); Platelet Count 294 X10*3/uL (160-400); Red Blood Count 5.07 X10*6/uL (4.20-5.50); Red Cell Distribution Width 12.4 % (11.0-16.0); SCAN SMEAR FLAG 1; White Blood Count 14.7 X10*3/uL (4.8-10.8)
[2024-08-27 08:17] LABS: Alanine Aminotransferase 19 U/L (0-31); Albumin Level 4.4 g/dL (3.5-5.0); Alkaline Phosphatase 79 U/L (39-117); Anion Gap 12 (12-20); Aspartate Amino Transferase 17 U/L (5-31); Bilirubin Total 0.7 mg/dL (0.0-1.0); Blood Urea Nitrogen 12 mg/dL (9-16); Calcium 9.2 mg/dL (8.4-10.2); Carbon Dioxide 24 mmol/L (22-29); Chloride 107 mmol/L (96-108); Creatinine Clr Calc Pharmacy 101.7; Estimated Glomerular Filt Rate > 60; Glucose Random 123 mg/dL (60-115); Potassium 4.4 mmol/L (3.3-5.1); Sodium 139 mmol/L (135-145); Total Protein 7.2 g/dL (6.5-8.0)
[2024-08-27 08:20] LABS: SLIDE REVIEW VERIFIED
--- NOTE | 2024-08-27 09:18 | ED.NAVMDI ---
HPI - Nausea/Vomiting/Diarrhea General Chief complaint: Nausea/Vomiting/Diarrhea Stated complaint: Vomiting, upper abd pain Time Seen by Provider: 08/27/24 09:08 Source: patient Mode of arrival: ambulatory Limitations: no limitations History of Present Illness HPI Narrative: This is a 39 years old patient presented to the emergency department with a chief complaint of nausea vomiting since yesterday. Denies any abdominal pain denies any diarrhea MD elicited complaint: nausea and vomiting Onset (ago): day(s) (1) Description of vomiting: watery Description of diarrhea: watery Associated nausea: Yes Associated abdominal pain: No Location of pain: none Pain consistency: constant Quality: cramping Relieving factors: none Associated symptoms: denies other symptoms Related Data Home Medications ?Medication ?Instructions ?Recorded ?Confirmed levalbuterol tartrate 45 2 puff inhalation Q4-6H PRN 11/14/23 12/01/23 mcg/actuation aerosol inhaler (Xopenex HFA) ondansetron 4 mg disintegrating 4 mg PO Q8H PRN nausea and vomiting 11/14/23 12/01/23 tablet omeprazole 20 mg tablet,delayed 20 mg PO DAILY 06/14/24 release Previous Rx's ?Medication ?Instructions ?Recorded albuterol sulfate 90 mcg/actuation 2 puff inhalation Q4-6H PRN 12/01/23 aerosol inhaler shortness of breath or wheezing #8.5 grams ipratropium 0.5 mg-albuterol 3 mg 3 ml inhalation Q6H PRN wheezing 12/01/23 (2.5 mg base)/3 mL nebulization #180 mL soln fluticasone furoate 200 1 inh inhalation DAILY #60 ea 04/09/24 mcg-vilanterol 25 mcg/dose inhalation powder (Breo Ellipta) Allergies Allergy/AdvReac Type Severity Reaction Status Date / Time No Known Allergies Allergy Unverified 08/27/24 07:43 [No Known Allergies*] Review of Systems Constitutional: Constitutional: Reports no additional constitutional complaints Eyes: Eyes: Reports no additional eye complaints Cardiovascular: Cardiovascular: Reports no additional cardiovascular complaints Respiratory: Respiratory: Reports no additional respiratory complaints Gastrointestinal: Gastrointestinal: Reports nausea PMFSH Past Medical History PMFSH Narrative: gerd Social History Social History Patient Tobacco Use Status: Never used Tobacco Smoked in Last 30 Days: No Advance Directives: No Advance Directives Information Provided: Yes Patient : No Physical Exam Vital Signs: Vital Signs: Last Vital Signs Temp 97.7 F 08/27/24 14:27 Pulse 105 H 08/27/24 14:27 Resp 14 08/27/24 14:27 BP 118/70 08/27/24 14:27 Pulse Ox 100 08/27/24 14:27 O2 Del Method Nasal Cannula 08/27/24 14:27 BMI result Body Mass Index 41.7 Not acute distress she looks comfortable in the stretcher Const: General: cooperative Nutritional Appearance: well nourished Orientation/consciousness: patient oriented x3 Limitations: no limitations HEENT: Head: Yes normal to inspection General nose exam: Normal external nose present Face and sinus: Yes normal facial exam Neck: Neck: Yes normal visual inspection and Yes full ROM Resp: Effort & Inspection: normal respiratory effort Auscultation: clear to auscultation bilaterally Cardio: Jugular venous distension: no JVD Rate: regular rate Rhythm: regular rhythm GI: Inspection: Yes normal to inspection Palpation (GI): Soft to palpation, not firm and nontender Skin: General skin exam: no rashes or lesions noted and elasticity normal Lesions: no lesions Rashes: no rashes Neuro: General: patient oriented x3 and gait normal Course Reevaluation(s) Reevaluation #1: Patient is feeling much better tolerating p.o. well labs okay CT ultrasound showed large fibroid of the uterus, this point I think the patient can be safely discharged home to follow-up with the primary care physician and OBGYN. Patient mother family were comfortable with the plan of care Time: 15:21 Medications Administered Discontinued Medications Generic Name Dose Route Start Last Admin Trade Name Freq PRN Reason Stop Dose Admin Diphenhydramine HCl 12.5 mg 08/27/24 09:16 08/27/24 09:30 Diphenhydramine Hcl 50 Mg/Ml Vial IVPUSH 08/27/24 09:17 12.5 mg ONCE ONE Administration Sodium Chloride 1,000 mls @ 999 mls/hr 08/27/24 09:30 08/27/24 10:54 Ns IVCONT 08/27/24 10:30 Infused .Q1H1M MEDARDO Infusion Sodium Chloride 1,000 mls @ 999 mls/hr 08/27/24 13:00 08/27/24 12:56 Ns IVCONT 08/27/24 14:00 999 mls/hr .Q1H1M MEDARDO Administration Iohexol 100 ml 08/27/24 11:43 08/27/24 11:43 Iohexol 350 Mg/Ml 100 Ml Infus..Btl IV 08/27/24 11:44 85 ml ONCE ONE Administration Metoclopramide HCl 10 mg 08/27/24 09:16 08/27/24 09:32 Metoclopramide Hcl 10 Mg/2 Ml Vial IVPUSH 08/27/24 09:17 10 mg ONCE ONE Administration Ondansetron HCl 4 mg 08/27/24 12:45 08/27/24 12:57 Ondansetron Hcl 4 Mg/2 Ml Vial IVPUSH 08/27/24 12:46 4 mg ONCE ONE Administration Medical Decision Making Medical Decision Making [facility] Narrative: Patient presented with nausea vomiting we will establish an IV administer antiemetic Differential Diagnosis Differential Diagnoses: The differential diagnosis associated with the presentation includes Viral syndrome/colitis/diverticulitis Admission/Observation Consideration of admission/observation: Escalation of care including admission/observation considered Lab Data [facility] Lab Attestation statement: I reviewed the patient's lab results. 08/27/24 07:50 08/27/24 07:50 Labs: Lab Results 08/27/24 08/27/24 08/27/24 Range/Units 07:50 09:01 12:54 WBC 14.7 H (4.8-10.8) X10*3/uL RBC 5.07 (4.20-5.50) X10*6/uL Hgb 14.8 (12.0-16.0) g/dl Hct 42.9 (37.0-47.0) % MCV 84.6 (80.0-98.0) fL MCH 29.2 (27.0-33.0) pg MCHC 34.5 (31.0-35.0) g/dl RDW 12.4 (11.0-16.0) % Plt Count 294 (160-400) X10*3/uL MPV 8.7 L (9.4-12.3) fL Immature Gran % (Auto) 0.3 (0.0-0.4) % Neut % (Auto) 94.4 H (45-73) % Lymph % (Auto) 1.7 L (20-40) % Door % (Auto) 3.3 (2-11) % Eos % (Auto) 0.1 (0-4) % Baso % (Auto) 0.2 (0-2) % Lymph # (Auto) 0.3 L (1.2-4.9) X10*3/uL Door # (Auto) 0.5 (0.1-1.2) X10*3/uL Eos # (Auto) 0.0 (0.0-0.4) X10*3/uL Baso # (Auto) 0.0 (0.0-0.2) X10*3/uL Abs Immat Gran (auto) 0.05 H (0.00-0.03) X10*3/uL Absolute Neuts (auto) 13.8 H (2.0-8.3) x10*3/uL Absolute Nucleated RBC 0.000 (0.0-0.012) X10*3/uL Nucleated RBC % (auto) 0.0 (0.0-0.2) /100WBC Smear Tech's Comments VERIFIED Sodium 139 (135-145) mmol/L Potassium 4.4 (3.3-5.1) mmol/L Chloride 107 (96-108) mmol/L Carbon Dioxide 24 (22-29) mmol/L Anion Gap 12 (12-20) BUN 12 (9-16) mg/dL Creatinine 0.82 (0.5-1.4) mg/dL Estim Creat Clear Calc 101.7 Estimated GFR > 60 Random Glucose 123 H (60-115) mg/dL Calcium 9.2 (8.4-10.2) mg/dL Total Bilirubin 0.7 (0.0-1.0) mg/dL AST 17 (5-31) U/L ALT 19 (0-31) U/L Alkaline Phosphatase 79 (39-117) U/L Total Protein 7.2 (6.5-8.0) g/dL Albumin 4.4 (3.5-5.0) g/dL Beta HCG, Quant < 2 mIU/mL Urine Color Yellow Urine Appearance Clear Urine pH 8.5 (5.0-9.0) Ur Specific Crosby >= 1.030 H (1.005-1.025) Urine Protein Negative (Neg-Trace) mg/dL Urine Glucose (UA) Negative (Negative) mg/dL Urine Ketones Negative (Negative) mg/dL Urine Blood Negative (Negative) Urine Nitrite Negative (Negative) Ur Leukocyte Esterase Negative (Negative) Influenza Type A (PCR) NEGATIVE (Negative) Influenza Type B (PCR) NEGATIVE (Negative) RSV RNA Qual (PCR) NEGATIVE (Negative) SARS-CoV-2 RNA (RT-PCR) NEGATIVE (Negative) Radiology Impression Discussion of test interpretation with radiology: I have reviewed the radiologist's reading. Radiologist Impression: CTA brain: Both vertebral arteries intracranially unite to form basilar artery and basilar artery appear widely patent. The basilar artery terminates and bilateral symmetrical posterior cerebral arteries. The basilar artery branches are widely patent. Bilateral petrous, cavernous and supraclinoid ICA segments of internal carotid arteries are widely patent. It bifurcates normally into anterior and middle cerebral artery branches. The middle cerebral artery bifurcates bilaterally without aneurysm or dissection.. Anterior cerebral arteries are widely patent. There is small anterior communicating artery present. No evidence of aneurysm, thrombosis or dissection seen. There is normal global capillary circulation seen. The venous sinuses are widely patent. CT/CT angio head neck IMPRESSION:: Unremarkable noncontrast CT head exam. Mild chronic inflammatory process of the sinuses. Unremarkable CTA brain and neck exam. Independent Historian Clinical information obtained from an independent historian. History obtained from or confirmed by: Parent Discharge Plan Discharge Clinical Impression: Vomiting Qualifiers: Vomiting type: unspecified Nausea presence: with nausea Qualified Code(s): R11.2 - Nausea with vomiting, unspecified Fibroid, uterine Qualifiers: Uterine leiomyoma location: unspecified location Qualified Code(s): D25.9 - Leiomyoma of uterus, unspecified Patient Disposition: Home, Self-Care Instructions: Acute Nausea and Vomiting (ED) Additional Instructions: Follow-up with your primary care physician also we will give you the name of the manager business operations Dr. Menjivar as we discussed CT scan showed a large uterine fibroid you should follow-up with the OBGYN as well Prescriptions: No Action levalbuterol tartrate [Xopenex HFA] 45 mcg/actuation HFA aerosol inhaler 2 puff inhalation Q4-6H PRN ondansetron 4 mg tablet,disintegrating 4 mg PO Q8H PRN (Reason: nausea and vomiting) omeprazole 20 mg tablet,delayed release (DR/EC) 20 mg PO DAILY ipratropium-albuterol 0.5 mg-3 mg(2.5 mg base)/3 mL solution for nebulization 3 ml inhalation Q6H PRN (Reason: wheezing) Qty: 180 2RF albuterol sulfate 90 mcg/actuation HFA aerosol inhaler 2 puff inhalation Q4-6H PRN (Reason: shortness of breath or wheezing) Qty: 8.5 3RF fluticasone furoate-vilanterol [Breo Ellipta] 200-25 mcg/dose blister with device 1 inh inhalation DAILY Qty: 60 6RF Referrals: Ana Laura Menjivar MD [Physician] - Print Language: Citizen Of [place]
--- OUTSIDE RECORDS SUMMARY | 2024-08-27 09:21 | XMS_ITS ---
Author Organization [facility] Address [address] [facility] [place] [address] Care Team Providers Care Holiday Detector Operator Name Role Phone Frankie Hammonds MD Primary Care Provider Pito Jeff [phone] Allergies No Known Allergies REASON FOR VISIT last visit pcp 09/2023, Skin problem(s), Heel pain Medications Medication SIG (Take, Route, Frequency, Duration) Notes Start Date End Date Status Omeprazole 20 MG 1 capsule 1/2 to 1 h our before morning meal Orally Once a day Active Breo Ellipta Active Ammonium Lactate 12 % 1 application Exte rnally to affected areas of skin to feet except for between the toes Twice a day for 30 days Active Albuterol Sulfate HFA 108 (90 Base) MCG/ACT 1 puff as needed Inhalation every 4 hrs Active Social History Tobacco Use: Social History Observation Description Date Details (start date - stop date) Never Smoker NA - NA Tobacco Use/Smoking Question Answer Notes Are you a: nonsmoker Additional Findings: Tobacco Non-User Current no n-smoker Alcohol Screen Question Answer Notes Did you have a drink contain ing alcohol in the past year? Yes How often did you have a dri nk containing alcohol in the past year? Monthly or less (1 point) Points 1 Interpretation Negative Tobacco use other than smoking: Question Answer Notes Are you an other tobacco user? No Vital Signs Height 5ft 2in in 06/18/2024 Weight 225 lbs 06/18/2024 BMI 41.15 kg/m2 06/18/2024 Encounters Encounter Location Date Provider Diagnosis [facility] [address] [address] 06/18/2024 Pito Flower Xerosis of skin L85. 3 ; Achilles tendinitis of right lower extremity M76.61 and Pain of right heel M79.671 Assessments Encounter Date Diagnosis (ICD Code) Assessment Notes Treatment Notes Treatment Clinical Notes Section Notes 06/18/2024 Xerosis of skin (ICD-10 - L85.3) 06/18/2024 Achilles tendinitis of right lower extremity (ICD-10 - M76.61) Patient Educated with: HEEL CORD STRETCHES.pdf (HEEL CORD STRETCHES.pdf) Patient Educated with: RICE THERAPY.pdf (RICE THERAPY.pdf) 06/18/2024 Pain of right heel (ICD-10 - M79.671) Plan Of Treatment Medication Medication Name Sig Start Date Stop Date Notes Ammonium Lactate 12 % 1 application Exte rnally to affected areas of skin to feet except for between the toes Twice a day for 30 days Treatment Notes Assessment Notes Achilles tendinitis of right lower extre mity Patient Educated with: HEEL CORD STRETCHES.pdf (HEEL CORD STRETCHES.pdf) Patient Educated with: RICE THERAPY.pdf (RICE THERAPY.pdf) Next Appt Details Follow Up: prn, Reason: Progress Notes * Nancy ZARCODOB: 3 (38 yo F)Acc No.[id number]:06/18/2024 Progress Notes Patient:?[place] Nancy Provider:?Pito Flower D.P.M. :1985???Age:38 Y???Sex:Female D ate:06/18/2024 [address] [id number] Pcp:Frankie Hammonds MD Subjective: * Chief Complaints: * ???Last visit pcp 09/2023Ski n problem(s)Heel pain * HPI: ???Skin problems:?Nature:?dryness , scaling.?Location:?Top , Bottom , B/L.?Duration:?a few months.?Onset/Cause:?unknown.?Course:?unresolved.?Aggravated by:?shoe gear.?Treatments:?OTC creams.?Severity/Quality:?moderate.?Heel pain:?Location:?Back of heel , B/L.?Duration:?several days.?Onset/Cause:?Due to increaseds walking at [facility].?Course:?improved.?Aggravated:?standing, walking, walking first thing in the morning/after rest.?Treatments:?rest/alter normal daily activity.? * ROS:?General/Constitutional:?Nausea?denies.?Vomiting?denies.?Hunger Thirst?denies.?Loss appetite?denies.?Chills?denies.?Fatigue?denies.?Fever?denies.?Night Sweats?denies.?Unexplained weight loss?denies.?Unexplained weight gain?denies.?HEENTM:?Dentures?denies.?Dizziness?denies.?Glasses/contacts?denies.?Retinopathy?de nies.?Blurred/double vision?denies.?TMJ?denies.?Discharge/drainage?denies.?Implants?denies.?Sore throat?denies.?Dental implants?denies.?Hard of hearing ?denies.?Difficulty chewing/swallowing/speaking?denies.?Nose bleeds?denies.?Sore mouth?denies.?Respiratory:?On Oxygen?denies.?Pneumonia/pleurisy?denies.?Bronchitis?denies.?Emphysema?denies.?C oughing?denies.?Cough blood?denies.?Shortness of breath?denies.?Wheezing?denies.?Cardiovascular:?Pacemaker?denies.?MVP?denies.?WPW?denies.?CHF?denies.?Heart attack?denies.?Septal defect?denies.?Rapid beat?denies.?Chest pain ?denies.?Atrial Fib.?denies.?Murmur/Palpitations?denies.?Gastrointestinal:?Hemorrhoids?denies.?Stomach/Abdominal pain?denies.?Dark blood stool?denies.?Irritable bowel ?denies.?Constipation?denies.?Diarrhea?denies.?Hematology:?Swelling?denies.?Clots?denies.?Varicose Veins?denies.?Bruising?denies.?Bleeding problem?denies.?Genitourinary:?Blood urine?denies.?Frequent/Painfu/urination/bladder control?denies.?Kidney stones?denies.?Infection (UTI)?denies.?Nephropathy?denies.?sex trans dis (STD)?denies.?Prostate?denies.?Musculoskeletal:?Hammertoes?denies.?Bunions?denies.?Back Pain?denies.?Muscle Cramps/ Resting?denies.?Muscle cramps / walking?admits.?Generalized aches and pains?admits.?Weakness?denies.?Integ.:?Gallardo?denies.?Scars?denies.?Corns/calluses?denies.?Ingrown nails?denies.?Painful nails?denies.?Open Sores?denies.?Rashes?denies.?Neurologic:?Difficulty sleeping?denies.?Brain disorder?denies.?Numbness?denies.?Balance trouble?denies.?Confusion?denies.?Fainting/blackouts?denies.?Tingling?denies.?Tr emors?denies.? * Medical History:? * Surgical History:?No Surgica l History documented. * Hospitalization/Major Diagno stic Procedure:?No Hospitalization History. * Family History:?Mother: aliv e, Plantar Fasciatis, high blood pressure.?Father: alive.? * Social History:?Tobacco Use:?Tobacco Use/Smoking?Are you a:?nonsmoker ?Additional Findings: Tobacco Non-User?Current non-smoker ?Tobacco use other than smoking?Are you an other tobacco user??No ???Drugs/Alcohol:?Drugs?Have you used drugs other than those for medical reasons in the past 12 months??No ?Alcohol Screen?Did you have a drink containing alcohol in the past year??Yes ?How often did you have a drink containing alcohol in the past year??Monthly or less (1 point) ?Points?1 ?Interpretation?Negative ???Miscellaneous:?Caffeine: yes, frequency:, 1-2 cups per day. ?no Children. ?Exercise: yes, work out with technology trainer twice a week. ?Marital status: single. ?Occupation: [employer], [employer]. * Medications:?TakingAlbuterol Sulfate HFA 108 (90 Base) MCG/ACT Aerosol Solution 1 puff as needed Inhalation every 4 hrsBreo Ellipta Omeprazole 20 MG Capsule Delayed Release 1 capsule 1/2 to 1 hour before morning meal Orally Once a dayMedication List reviewed and reconciled with the patientTaking Albuterol Sulfate HFA 108 (90 Base) MCG/ACT Aerosol Solution 1 puff as needed Inhalation every 4 hrsTaking Breo Ellipta Taking Omeprazole 20 MG Capsule Delayed Release 1 capsule 1/2 to 1 hour before morning meal Orally Once a dayMedication List reviewed and reconciled with the patient * Allergies:?N.K.D.A.yes[Aller gies Verified] Objective: * Vitals:?Ht: 5ft 2in, Wt:225, BMI:41.15, Shoe size: 8.5, Ht-cm: 157.48 cm, Wt-k.06 kg. * Examination: ???General Examination: ?GENERAL APPEARANCE:?Reveals a pleasant, alert, over-weight, well- developed, well hydrated individual, who demonstrates proper attention to hygiene/body habitus, and is in no acute distress, Pt serves as own?historian for office visit today.?ORIENTED:?person, place, and time.?Neurological: ?SENSORY:?Neurological exam reveals intact sensorium, pain sensation normal, vibration sensation intact, pinprick sensation is normal in the lower extremities, Pt denies, anesthesia, burning, paresthesia, tingling, B/L.?DEEP TENDON REFLEXES:?Achilles, 2/4, B/L , Deferred on symptomatic extremity due to discomfort.?Vascular: ?DP PULSES(B):?3/4, B/L.?PT PULSES(B):?3/4, B/L.?CAPILLARY FILL TIME:?immediate, all digits, B/L.?TROPHIC CONDITION-TEXTURE/ELASTICITY/TURGOR/HAIR GROWTH(B):?normal, B/L.?TEMPERTURE GRADIENT(C):?warm to cool, proximal to distal, B/L.?PIGMENTATION:?normal, B/L.?EDEMA(C):?absent, B/L.?Dermatologic: ?SKIN FINDINGS:??Skin shows sign(s) of, dryness, scaling, in a stocking fashion, no fissure(s) present,?There are no masses. The interspaces are clear?,B/L.?Orthopedic: ?MUSCLE STRENGTH:?5/5 all groups in a symmetrical fashion , B/L.?GAIT ABNORMALITY:?antalgic.?FOOT MORPHOLOGY:?Decreased Ankle joint dorsiflexion ROM, knee extended , B/L.?Heel Pain: ?INSPECTION REVEALS:? Mild pain on palpation to Posterior Superior Aspect Calcaneus, Mild pain on palpation to Achilles tendon/bursa with inflammation and swelling present, Prominent posterior and posterior/superior heel present, B/L, Neg [place].? Assessment: * Assessment: 1.?Achilles tendinitis of ri ght lower extremity - M76.61, Acute problem, Complicated w/ Multiple Tx Options(4),Dx New problem, Prognosis Uncertain (4)?2.?Xerosis of skin - L85.3, Acute problem, Uncomplicated (3),Rx Management (4)?3.?Pain of right heel - M79.671? Plan: * Treatment: 2.?Xerosis of skin? Start Ammonium Lactate Cream, 12 %, 1 application, Externally to affected areas of skin to feet except for between the toes, Twice a day, 30 days, 400 Gram, Refills 2.?? * Procedures:?Application of [place]-Soothe skin care lotion to both feet. ? * Procedure Codes:? * Preventive Medicine:? ??Counseling:?Discussion:?-04: Office or other outpatient visit for the evaluation and management of a new patient, which required a medically appropriate history and/or examination and MODERATE level of DECISION MAKING for: 1 OR MORE CHRONIC PROBLEM(S) THATS WORSENING, 2 STABLE CHRONIC PROBLEMS, A NEWLY DIAGNOSED PROBLEM WITH UNCERTAIN PROGNOSIS, AN ACUTE COMPLICATED INJURY WITH MULTIPLE TREATMENT OPTIONS, OR AN ACUTE PROBLEM WITH ACCOMPANYING SYSTEMIC SYMPTOMS, THAT POSE(S) A MODERATE RISK OF MORBIDITY. THIS CONDITION MAY ALSO INCLUDE RX DRUG MANAGEMENT, OR A DECISON FOR MINOR SURGERY. The visit on the day of the encounter encompassed interpreting the data and educating the patient as to the nature of their condition, treatment options available according to their individual PMH, meds, allergies, and overall health/living conditions, as well as any potential risks or complications that may occur from a failure to adhere to, and participate in, the recommended course of therapy. The discussion included a complete verbal, and/or written explanation of the examination results, any x-rays taken, the proposed diagnosis, and outline of the treatment plan. A schedule for future care needs was also explained. The patient verbalized an understanding of the instructions at this time and agreed to be an active participant in their treatment. If the patient should think of any questions or concerns after the visit, I have encouraged the patient to call the office.?Heel pain:?ACHILLES: I explained to the patient the possible etiologies of Achilles Tendonitis including foot type/shoegear/activity level/exercise routine and the risks/benefits of all the different treatment options for pain including: No treatment at all, Rest, Ice, NSAIDs(only if well tolerated after meals), New/supportive Shoegear, Strappings and Tapings, Stretching exercises, Deep Tissue Massage, Heel cups/cushions, Arch support/shoe inserts, Custom orthoses, Topical analgesics including Aspercream/Voltaren gel, Night splint/AFO Bracing for stiffness, Cast boot with crutches/cane/or walker for assisted ambulation, Physical Therapy, EPAT/ESWT, Interfil injection therapy, as well as surgical [place]/Calcanectomy- tendon debridement surgical procedures if needed. Recommendations were made to limit barefoot walking, eliminate wearing nonsupportive shoegear (i.e. flip-flops or sandals, or a shoe with an easily bendable, foldable, or twistable sole) and wear shoegear with a good solid sole, a supportive arch, and plenty of room for an insert/orthotic if necessary. If wearing sandals was required by the patient, we recommended orthopedic sandals such as Orthoheel or Birkenstock even while in the home. If the patient wore heels in the past, we recommended they continue, but eliminate the use of flats. The advantages and disadvantages of each option were discussed and the patients' questions re: shoegear, custom vs prefabricated inserts, activity level, PO vs Topical medications (and their respective potential complications/drug interactions/side effects), and consistency in home treatment regimens for optimal success were answered to their verbally confirmed satisfaction. Literature detailing Achilles Tendonitis and the various treatment options were dispensed and reviewed.?P.R.I.C.E.:?The patient was counseled on the use of P.R.I.C.E. and NSAIDS (if well tolerated) to aid in the recovery from their painful condition.?Shoe Gear Counseling:?The patient and I reviewed the types of shoes they should be wearing. My recommendation included obtaining a well-fitted shoe with a good supportive, non-foldable nor twistable sole, plenty of toe/room for the forefoot, and proper arch support. Based on todays examination, I recommended the patient look for new shoes, by having their feet professionally measured. We discussed that generally the best time of the day for a shoe fitting is the afternoon. Different shoes types and brands to best match the patients occupation and vocation were discussed. Specific brand selection will be up to the patient, their individual foot condition/deformities, and fit. The patient and I reviewed the standard new shoe break in period by wearing them for a few hours a day while checking for redness or sores as wear time is increased. The patient verbally confirmed to understanding the information discussed.?Stretching Exercises:?Stretching exercises for the patients injury/diagnosis were discussed and demonstrated, Handouts were also given.?Xerosis:?The patient was counseled on the diagnosis, potential etiologies, and treatment options for their skin condition. We discussed the risks and benefits of each option from performing no treatment, to utilizing OTC topical skin creams/ointments, to utilizing prescription topical creams/ointments, to utilizing customized compounded topical medications and use of nocturnal occlusion with any/all previously detailed therapies. We discussed the advantages and disadvantages of each possible treatment and importance for adherence to all the recommended therapies for optimum success and avoid potential complications such as open sore/infection/possible hospitalization. We discussed the potential effectiveness of each topical preparation as well as each ones possible side effects and/or patient medication interactions. Patient questions re: use, dosage, successful outcomes, and application consistency were reviewed and the patient verbalized that all answers were clearly understood. The patient has decided to apply Rx skin creams to their feet save the interspaces while paying special attention to the heels. Such was sent to their pharmacy at the time of visit.? * Follow Up:?prn * Images: * Sign off status: Completed true * Provider:?Pito Flower D.P.M. Date:?05/29 Generated for Humza ramon/Carmina/Earlitting on:?08/27/2024 09:21 AM EST History and Physical Notes * HPI (History of Present Illness) Category Sub-Category Detail Notes Category Not es Heel pain Duration: several days Location: Back of heel , B/L Onset/Cause: Due to increaseds wa lking at [facility] Aggravated: standing, walking, w alking first thing in the morning/after rest Course: improved Treatments: rest/alter normal da aidan activity Skin problems Nature: dryness , scaling Location: Top , Bottom , B/L Duration: a few months Onset/Cause: unknown Course: unresolved Aggravated by: shoe gear Treatments: OTC creams Severity/Quality: moderate Examination Category Sub-Category Detail Notes Category Not es Heel Pain INSPECTION REVEALS: Mild pain on palpation to Posterior Superior Aspect Calcaneus, Mild pain on palpation to Achilles tendon/bursa with inflammation and swelling present, Prominent posterior and posterior/superior heel present, B/L, Neg [place] Neurological SENSORY: Neurological exa m reveals intact sensorium, pain sensation normal, vibration sensation intact, pinprick sensation is normal in the lower extremities, Pt denies, anesthesia, burning, paresthesia, tingling, B/L DEEP TENDON REFLEXES: Achilles, 2/4, B/L , Deferred on symptomatic extremity due to discomfort Dermatologic SKIN FINDINGS: Skin shows sign( s) of, dryness, scaling, in a stocking fashion, no fissure(s) present, There are no masses. The interspaces are clear ,B/L Orthopedic GAIT ABNORMALITY: antalgic FOOT MORPHOLOGY: Decreased Ankle join t dorsiflexion ROM, knee extended , B/L MUSCLE STRENGTH: 5/5 all groups in a symmetrical fashion , B/L General Examination GENERAL APPEARANCE: Reveals a pleasant, alert, over-weight, well-developed, well hydrated individual, who demonstrates proper attention to hygiene/body habitus, and is in no acute distress, Pt serves as own historian for office visit today ORIENTED: person, place, and t get Vascular DP PULSES (B): 3/4, B/L PT PULSES (B): 3/4, B/L CAPILLARY FILL TIME: immediate, all digi ts, B/L TEMPERTURE GRADIENT (C): warm to cool, p roximal to distal, B/L TROPHIC CONDITION-TEXTURE/ELASTICITY/TURGOR/HAIR GROWTH (B): normal, B/L EDEMA (C): absent, B/L PIGMENTATION: normal, B/L
--- OUTSIDE RECORDS SUMMARY | 2024-08-27 09:22 | XMS_ITS ---
Author Organization [facility] Address [address] [place] [address] Care Team Providers Care Correctional Lieutenant Name Role Phone Frankie Hammonds MD Primary Care Provider Pito Jeff [phone] REASON FOR VISIT QA AUTOMATION ARCHITECT Encounters Encounter Location Date Provider Diagnosis [facility] [address] [place] [address] 05/22/2024 Pito Flower Plan Of Treatment No Information Progress Notes * Nancy ZARCODOB: 3 (38 yo F)Acc No.[id number]:05/22/2024 Patient:?Nancy Zarco :1985???Age:38 Y???Sex:Female Address:[address] [place] [address] * true * Date:? Generated for Printi ng/Faclaudineg/eTransmitting on:?08/27/2024 09:21 AM EST
--- OUTSIDE RECORDS SUMMARY | 2024-08-27 09:22 | XMS_ITS ---
Author Organization Frankie Hammonds MD Address [address] [place] [phone] Care Team Providers Care Patroller Name Role Frankie Rowan Primary Care Provider REASON FOR VISIT RE:New Referral Request Encounters Encounter Location Date Provider Diagnosis Frankie Hammonds MD [address] [place] [phone] 05/21/2024 Frankie Hammonds PLAN OF TREATMENT Next Appt Details Provider Name:Frankie jordan, 10/18/2024 07:00:00 AM, [address] [place] [address], [address], [phone], Provider Name:Frankie jordan, 10/25/2024 08:30:00 AM, [address] [place] [address], [address] [place] [address], [phone],
--- OUTSIDE RECORDS SUMMARY | 2024-08-27 09:22 | XMS_ITS ---
Author Organization Frankie Hammonds MD Address [address] [facility] [address] [place] [phone] Care Team Providers Care Diesel Roller Operator Name Role Frankie Rowan Primary Care Provider [phone] REASON FOR VISIT New Referral Request Encounters Encounter Location Date Provider Diagnosis Frankie Hammonds MD [address] [facility] [address] [place], [place] [phone] 05/21/2024 Frankie Hammonds PLAN OF TREATMENT Next Appt Details Provider Name:Frankie jordan, 10/18/2024 07:00:00 AM, [address] [place] [address], [address], [phone], Provider Name:Frankie jordan, 10/25/2024 08:30:00 AM, [address] [place] [address], [address], [phone],
--- OUTSIDE RECORDS SUMMARY | 2024-08-27 09:22 | XMS_ITS ---
Author Organization Frankie Hammonds MD Address [address] [place], [place] [phone] Care Team Providers Care Washroom Cleaner Name Role Phone Frankie Hammonds Primary Care Provider [phone] ALLERGIES No Known Allergies REASON FOR REFERRAL Reason bilateral knee pain Diagnosis 1 Pain in right knee ( M25.561) Diagnosis 2 Pain in left knee (M 25.562) Referral Organization Frankie Hammonds MD Referring Provider First Name Frankie Referring Provider Last Name Nasra Referring Provider Speciality Internal M edicine Referred Provider NICOLE FARFAN Referred Provider Specialty Orthopedic S urgery General Notes Zahraa Torres 12:47:11 PM EDT > referral and [facility] appt request form faxed with Melissa melchor Annette 07/01/2024 08:35:38 AM EST > appt is with Harvey [facility] Dr[facility] [place] Melissa REYES Annette 07/01/2024 08:39:26 AM EST > info mailed to patient Referral Priority Routine Referral Appointment Date 07/18/2024 REASON FOR VISIT cold Had Covid 2 weeks ago, c/o sore throat headache runny nose congestion x 2 days, video [phone] MEDICATIONS Medication SIG (Take, Route, Frequency, Duration) Notes Start Date End Date Status Breo Ellipta 200-25 MCG/INH 1 puff Inhalation Once a day 10/14/2021 Active Ondansetron 4 MG 1 tablet on the tong ue and allow to dissolve Orally 3 times a day asneeded for 7 days 05/09/2022 Not-Taking Hyoscyamine Sulfate ER 0.375 MG 1 tablet Orally once a day for 30 day(s) 09/06/2018 Not-Taking Albuterol Sulfate 1.25 MG/3ML as directed Inhalation every 6 hrs for 30 days 11/30/2023 Active Triamcinolone Acetonide 0.1 % 1 application Externally Two times a Week for 10 days 04/30/2024 Active VITAL SIGNS BMI 38.97 kg/m2 06/27/2024 Height 63 in 06/27/2024 Weight 220 lbs 06/27/2024 weight at home is 220 BP not taken Encounters Encounter Location Date Provider Diagnosis Frankie Hammonds MD [address] [place], [place] [phone] 06/27/2024 Frankie Hammonds Pain in left knee M25.562 ; Pain in right knee M25.561 ; Schatzki's ring K22.2 and Tension headache G44.209 ASSESSMENTS Encounter Date Diagnosis Assessment Notes Treatment Notes Treatment Clinical Notes 06/27/2024 Pain in left knee (ICD-10 - M25.562) 06/27/2024 Pain in right knee (ICD-10 - M25.561) will have her go back to [facility] 06/27/2024 Schatzki's ring (ICD-10 - K22.2) not bad enough to get dilitation at present 06/27/2024 Tension headache (ICD-10 - G44.209) has been using motrin and tyenol with good relief PLAN OF TREATMENT Treatment Notes Assessment Notes Pain in right knee will have her go seema k to [facility] Schatzki's ring not bad enough to ge t dilitation at present Tension headache has been using motri n and tyenol with good relief Referrals Referral Date Details 07/18/2024 07/18/2024, [facility] , [facility] Next Appt Details Provider Name:Frankie jordan, 10/18/2024 07:00:00 AM, [address], [address], [place], [place], [phone], Provider Name:Frankie [place] iejuancarlos, 10/25/2024 08:30:00 AM, [address] [facility], [address], [place], [place], [phone], Progress Notes * Examination Category Sub-Category Detail Notes General Examination GENERAL APPEARANCE: alert, w ell hydrated, in no distress History and Physical Notes * HPI (History of Present Illness) Category Sub-Category Detail Notes Symptom(s) Telehealth Location of prov ider rendering services:: [address] [place] [address], [address] Location of patient:: at address listed in demographics for today's visit Patient identification confirmed using:: Name, , SSN, Insurance information Telehealth method:: Video co nference where patient is visible to the provider of care Consent:: Patient verbally c onsented to treatment, Patient verbally consented to billing insurance company, Patient informed of any privacy concerns related to method of visit Consultation Request Notes Referral Date Referring Provider Referred Provider Not allison 06/27/2024 Frankie Hammonds, [facility] bilateral knee pain
--- OUTSIDE RECORDS SUMMARY | 2024-08-27 09:22 | XMS_ITS | Patient Health Record ---
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 Complete Blood Count Auto Di ff Reviewed date:10/17/2023 12:35:09 PM Interpretation: Performing Lab:[facility], [address] [place] [phone] Notes/Report: White Blood Count 5.8 4.8-10.8 X10*3/uL Red Blood Count 4.70 4.20-5.50 X10*6/uL Hemoglobin 13.9 12.0-16.0 g/dl Hematocrit 41.2 37.0-47.0 % Mean Corpuscular Volume 87.7 80.0-98.0 fL Mean Corpuscular Hemoglobin 29.6 27.0-33.0 pg Mean Corpuscular HGB Conc 33.7 31.0-35.0 g/dl Red Cell Distribution Width 11.9 11.0-16.0 % Platelet Count 286 160-400 X10*3/uL Mean Platelet Volume 8.9 9.4-12.3 fL Neutrophils Percent Auto 60.8 45-73 % Imm Gran Pct Auto 0.3 0.0-0.4 % Lymphocytes Percent Auto 29.0 20-40 % Monocytes Percent Auto 7.2 2-11 % Eosinophils Percent Auto 1.7 0-4 % Basophils Percent Auto 1.0 0-2 % NRBC Pct Auto 0.0 0.0-0.2 /100WBC Neutrophils Absolute Auto 3.5 2.0-8.3 x10*3/u L Imm Gran Abs Auto 0.02 0.00-0.03 X10*3/uL Lymphocytes Absolute Auto 1.7 1.2-4.9 X10*3/u L Monocytes Absolute Auto 0.4 0.1-1.2 X10*3/uL Eosinophils Absolute Auto 0.1 0.0-0.4 X10*3/u L Basophils Absolute Auto 0.1 0.0-0.2 X10*3/uL NRBC Abs Auto 0.000 0.0-0.012 X10*3/uL Comprehensive [place]. Panel Fa st Reviewed date:10/17/2023 04:16:10 PM Interpretation: Performing Lab:[facility], [address] [place] [phone] Notes/Report: Sodium 138 135-145 mmol/L Potassium 3.8 3.3-5.1 mmol/L Chloride 103 96-108 mmol/L Carbon Dioxide 27 22-29 mmol/L Anion Gap 12 12-20 Blood Urea Nitrogen 13 9-16 mg/dL Creatinine 0.82 0.5-1.4 mg/dL Estimated Glomerular Filt Rate > 60 NOTE: For -[place] individuals, multiply the result by 1.210. Chronic Kidney Disease: Estimated GFR < 60 mL/min/1.73m2 Severe Kidney Disease: Estimated GFR < 15 mL/min/1.73m2 Glucose Fasting 88 60-99 mg/dL Calcium 8.8 8.4-10.2 mg/dL Bilirubin Total 0.4 0.0-1.0 mg/dL Aspartate Amino Transferase 12 5-31 U/L Alanine Aminotransferase 12 0-31 U/L Total Protein 6.8 6.5-8.0 g/dL Albumin Level 4.2 3.5-5.0 g/dL Alkaline Phosphatase 70 39-117 U/L Lipid Panel Reviewed date:10/17/2023 12:31:28 PM Interpretation: Performing Lab:[facility], [address] [place] [phone] Notes/Report: Triglycerides 79 <150 mg/dL Desirable Triglyceride: less than 150 mg/dL Borderline High Triglyceride 150-199 mg/dL High Triglyceride: 200-499 mg/dL Very High Triglyceride: greater than or equal to 5OO mg/dL Cholesterol 187 <200 mg/dL Desirable Cholesterol: less than 200 mg/dL Borderline High Cholesterol: 200-239 mg/dL High Cholesterol: greater than 239 mg/dL LDL Cholesterol Calculated 106 <100 mg/dL Desirable LDL: less than 100 mg/dL Near Optimal/Above Optimal LDL: 110-129 mg/dL Borderline High LDL: 130-159 mg/dL High LDL: 160-189 mg/dL Very High LDL: greater than or equal to 190 mg/dL HDL Cholesterol 66 >40 mg/dL Desirable HDL: greater than 40 mg/dL Note: This HDL assay may give artificially low results in patients with liver disease. UA ClnCatch+Micro w/rflx Cul t Reviewed date:10/19/2023 08:07:44 AM Interpretation: Performing Lab:[address] [phone] Notes/Report: [id number] Urine, Clean Catch Color Urine Yellow Appearance Urine Clear PH 6.0 5.0-9.0 Glucose Urine UA Negative Negative mg/dL Urine Blood Trace Negative Specific [place] - Urine 1.010 1.005-1.025 Urine Protein Negative Neg-Trace mg/dL Urine Ketones Negative Negative mg/dL Nitrite Urine Negative Negative Leukocyte Esterase Urine Small (1+) Negative RBC Urine 0-2 0-2 /HPF WBC Urine 11-20 0-5 /HPF Squamous Epithelial Cell Urine 3-5 0-2 /HPF Bacteria Urine 1+ None Seen Hyaline Casts Urine 0-2 0-2 /LPF Urine Culture Reviewed date:11/01/2023 04:33:37 PM Interpretation: Performing Lab:[address] [phone] Notes/Report: Urine Culture Report Result Urine Culture 10,000 to 50,000 cfu/ml Urine Culture Mixed bacterial cathy a characteristic of Urine Culture urogenital contamination. UA ClnCatch+Micro w/rflx Cul t Reviewed date:10/31/2023 04:03:56 PM Interpretation: Performing Lab:[facility], [address] [place] [phone] Notes/Report: Urine, Clean Catch Color Urine Yellow Appearance Urine Clear PH 8.0 5.0-9.0 Glucose Urine UA Negative Negative mg/dL Urine Blood Negative Negative Specific [place] - Urine 1.010 1.005-1.025 Urine Protein Negative Neg-Trace mg/dL Urine Ketones Negative Negative mg/dL Nitrite Urine Negative Negative Leukocyte Esterase Urine Small (1+) Negative RBC Urine 0-2 0-2 /HPF WBC Urine 0-5 0-5 /HPF Squamous Epithelial Cell Urine 0-2 0-2 /HPF Bacteria Urine None Seen None Seen Hyaline Casts Urine 0-2 0-2 /LPF SARS-CoV2/FLU/RSV Reviewed date:11/27/2023 09:27:21 AM Interpretation: Performing Lab:[facility], [address] [place] [phone] Notes/Report: Influenza A PCR NEGATIVE Negative Influenza B PCR NEGATIVE Negative Resp Syncy Virus RNA Qual PCR NEGATIVE Negative SARS COV2 PCR INHOUSE NEGATIVE Negative All test results must be correlated with clinical findings. Negative results do not preclude SARS-CoV2, influenza A virus, influenza B virus and/or RSV infection and should not be used as the sole basis for treatment or other patient management decisions. Negative results must be combined with clinical observations, patient history, and epidemiological information. This test has not been evaluated for monitoring treatment of infection. This test has been authorized by the FDA under an Emergency Use Authorization (EUA) for use by authorized laboratories. Testing performed on the [employer] GeneXpert utilizing real-time RT-PCR. All SARS CoV2 and positive influenza A/B results are reported to [facility]. XR chest 2V Reviewed date:11/27/2023 10:11:31 AM Interpretation: Performing Lab: Notes/Report: [address] [place] [address] XRay Report Signed Patient: Nancy Golden MR#: [id number] 42 : 1985 Acct:[id number] Age/Sex: 38 / F ADM Date: 11/27/23 Loc: HO.ED Attending Dr: Ordering Physician: Steven Marcelino MD Date of Service: 11/27/23 Procedure(s): XR chest 2V Accession Number(s): [id number] cc: Frankie Hammonds MD; Steven Marcelino MD EXAMINATION: XR CHEST CLINICAL INFORMATION: Cough, shortness of breath and asthma COMPARISON: None available. TECHNIQUE: 2 views of the chest were obtained. FINDINGS: No significant abnormality is noted involving the heart, lungs, mediastinum, bony thorax or soft tissues. XR/XR chest 2V IMPRESSION: Unremarkable examination. 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 Reflux COMPARISON: None TECHNIQUE: Fluoroscopic air contrast upper GI examination was performed utilizing standard techniques with thin and thick barium and effervescent granules. Numerous spot images were obtained. FINDINGS: Lateral cine images of the oropharynx and hypopharynx demonstrates a delayed swallow mechanism with normal epiglottic inversion and soft palate elevation. No tracheal penetration, glottic or subglottic aspiration identified. No nasopharyngeal reflux present. Hypopharyngeal structures appear normal without evidence of mass or diverticulum. There was no significant cricopharyngeal achalasia. Dual and single contrast images of the esophagus demonstrate normal caliber, contour, and mucosal pattern. No evidence of stricture, mass, or ulcerations identified. Esophageal peristalsis was normal. A moderate-sized type I hiatal hernia is present. There is a wide open Schatzki's ring present. No significant gastroesophageal reflux was seen during the course of the examination and on reflux views. Dual contrast and single contrast images of the stomach demonstrated normal contour and mucosal pattern without evidence of mass, ulceration, or other abnormality. Contrast freely passed into the gastric antrum and duodenal bulb without delay. Single and air-contrast images of the duodenal bulb demonstrate no abnormality. The duodenal sweep has a normal appearance, course, and mucosal fold appearance. No malrotation. The imaged proximal jejunum has a normal fold pattern and caliber. FLUOROSCOPY TIME: 3 minutes 24 seconds Number of Spot Images: 8 Number of Cine: 10 DOSE AREA PRODUCT: 2450 uGy-m2 (microgray-meter squared) FL/FL upper GI w air IMPRESSION: 1. Delayed swallowing mechanism, however no aspiration was seen during this examination. 2. Moderate-sized type I hiatal hernia. 3. Wide open Schatzki's ring. This procedure was performed by Igor Mason PA-C, and supervised by Dr. 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: REASON FOR REFERRAL Reason mild intermittent as thma Diagnosis 1 Mild intermittent as thma without complication (J45.20) Referral Organization Frankie Hammonds MD Referring Provider First Name Frankie Referring Provider Last Name Nasra Referring Provider Speciality Internal M edicine Referred Provider DANE RIVERO Referred Provider Specialty Pulmonary Di seases General Notes Zahraa Torres 08:19:04 AM EST > info faxed , Zahraa Torres 11/03/2023 01:40:39 PM EST > appt is with Philly Mcgarry at the [facility] [address], Zahraa Torres 11/03/2023 02:27:29 PM EST > called patint with info and maoled Referral Priority Routine Referral Appointment Date 11/14/2023 Reason occipital neuralgia of left side Diagnosis 1 Occipital neuralgia of left side (M54.81) Referral Organization Frankie Hammonds MD Referring Provider First Name Frankie Referring Provider Last Name Nasra Referring Provider Speciality Internal M edicine Referred Provider Dane Yen Referred Provider Specialty Neurology General Notes Zahraa Torres 08:20:35 AM EST > info faxed , Zahraa Torres 11/03/2023 02:05:51 PM EST > info faxed , Zahraa Torres 11/07/2023 12:38:02 PM EDT > info mailed to patient Referral Priority Routine Referral Appointment Date 12/07/2023 Reason bilateral knee pain Diagnosis 1 Pain [...] > appt is with Harvey [facility] Melissa Annette 07/01/2024 08:39:26 AM EST > info mailed to patient Referral Priority Routine Referral Appointment Date 07/18/2024 MEDICATIONS Medication SIG (Take, Route, Frequency, Duration) [...] a Week for 10 days 04/30/2024 Active IMMUNIZATIONS Vaccine Route Administration Date Status Comme nts TDaP IM Intramuscular 10/07/2013 Administered Hepatitis A (adult) Unknown 02/26/2014 Administered TRA [facility]IC[facility] Typhoid Vaccine Unknown 02/26/2014 Administered TRAVEL MEDICINE YELLOW FEVER Unknown 02/26/2014 Administered [facility] Flu Vaccine IM Intramuscular 07/10/2014 Administered PPSV23 (Pnemovax) IM Intramuscular 07/10/2014 Administered TDaP Unknown 02/26/2014 Administered Hepatitis A (adult) Unknown 09/18/2014 Administered Flu Vaccine Unknown 06/24/2016 Administered at work Flu Vaccine Unknown 06/26/2017 Administered pt was give n the vaccine at work. Fluarix Quadrivalent Unknown 05/21/2018 Administered pt got it at work. Fluarix Quadrivalent Unknown 06/13/2019 Administered at work PPSV23 (Pnemovax) IM Intramuscular 10/04/2019 Administered TDaP Unknown 05/25/2020 Administered [facility] TDaP Unknown 05/25/2020 Administered [facility] Fluarix Quadrivalent Unknown 05/21/2020 Administered cv s Covid Vaccine Unknown 09/07/2020 Administered SARS-COV-2 Moderna Unknown 10/05/2020 Administered SARS-COV-2 Moderna Unknown 06/26/2021 Administered Fluarix Quadrivalent Unknown 06/26/2021 Administered SARS-COV-2 Moderna Unknown 05/06/2022 Administered Flu Vaccine Unknown 06/13/2015 Refused Tetanus Unknown 02/26/2014 Pending SOCIAL HISTORY Tobacco Use: Social History Observation Description Date Details (start date - stop date) Never Smoker NA - NA Sex Assigned At : Social History Observation Description Sex Assigned At Unknown Tobacco Use/Smoking Question Answer Notes Patient is a nonsmoker Additional Findings: Tobacco Non-User Cu rrent non-smoker, currently using no form of tobacco Alcohol Screen Question Answer Notes Did you have a drink contain ing alcohol in the past year? Yes How often did you have a dri nk containing alcohol in the past year? Monthly or less (1 point) How many drinks did you have on a typical day when you were drinking in the past year? 1 or 2 drinks (0 point) How often did you have 6 or more drinks on one occasion in the past year? Never (0 point) Points 1 Interpretation Negative PROBLEMS Problem Type ICD Code Onset Dates Problem Status W/U Status Risk SNOMED Code Notes Problem Body mass index (BMI) 36.0-36.9, adult (Z68.36) Active confirmed 244811735 Problem Mild intermittent asthma without complication (J45.20) Active confirmed 966346878 Problem Schatzki's ring (K22.2) Active confirmed 997388311 Problem Tension headache (G44.209) Active confirmed 686435403 Problem Oral phase dysphagia (R13.11) Active confirmed 039847623 Problem Irritable bowel syndrome with both constipation and diarrhea (K58.2) Active confirmed 17906020 Problem BMI 37.0-37.9, adult (Z68.37) Active confirmed 618016744 Problem Mild intermittent asthmatic bronchitis with acute exacerbation (J45.21) Active confirmed 999995096 Problem Adult general medical exam (Z00.00) Active confirmed 418909099 Problem Gastric reflux (K21.9) Active confirmed 418542997 VITAL SIGNS Blood pressure diastolic 72 mm Hg 04/30/2024 Height 63 in 06/27/2024 weight at home is 220 BP not taken Blood pressure systolic 118 mm Hg 04/30/2024 Weight 220 lbs 06/27/2024 weight at home is 220 BP not taken BMI 38.97 kg/m2 06/27/2024 weight at home is 220 BP not taken Encounters Encounter Location Date Provider Diagnosis Frankie Hammonds MD [address] [place] [address] Drive [address] [place] [id number] 10/24/2023 Frankie Hammonds Mild intermittent asthma without complication J45.20 ; Annual physical exam Z00.00 ; Asymptomatic microscopic hematuria R31.21 ; Esophageal dysphagia R13.19 ; Occipital neuralgia of left side M54.81 and Depression screening Z13.31 Frankie Hammonds MD [address] [place] [address] Drive [address] [place] [id number] 12/25/2023 Frankie Hammonds Gastric reflux K21.9 ; Schatzki's ring K22.2 and Tension headache G44.209 Frankie Hammonds MD [address] [place] [address] Drive [address] [place] [id number] 10/17/2023 Frankie Hammonds Blood tests for routine general physical examination Z00.00 Frankie Hammonds MD [address] [place] [id number] 10/31/2023 Frankie Hammonds Hematuria, unspecified type R31.9 Frankie Hammonds MD [address] [place] [id number] 04/30/2024 Frankie Hammonds Hemorrhoids, externa l K64.4 Frankie Hammonds MD [address] [place] [id number] 11/27/2023 Frankie Hammonds MD [address] [place] [id number] 08/31/2023 Frankie Hammonds Mild intermittent asthmatic bronchitis with acute exacerbation J45.21 Frankie Hammonds MD [address] [place] [id number] 06/27/2024 Frankie Hammonds Pain in left knee M25.562 ; Pain in right knee M25.561 ; Schatzki's ring K22.2 and Tension headache G44.209 Frankie Hammonds MD [address] [place] [id number] 09/04/2023 Frankie Hammonds Mild intermittent asthma without complication J45.20 Frankie Hammonds MD [address] [place] [id number] 11/29/2023 Frankie Hammonds MD [address] [place] [id number] 05/21/2024 Frankie Hammonds MD [address] [place] [id number] 05/21/2024 Frankie Hammonds ASSESSMENTS Encounter Date Diagnosis Assessment Notes Treatment Notes Treatment Clinical Notes 10/24/2023 Annual physical exam (ICD-10 - Z00.00) labs reviewed and discussed with patient 10/24/2023 Mild intermittent asthma without complication (ICD-10 - J45.20) do smaller increments. refer to pulmonology 12/25/2023 Schatzki's ring (ICD-10 - K22.2) not having any symptoms at present. does feel like food gets hung up at times 12/25/2023 Gastric reflux (ICD-10 - K21.9) if she has soime symptoms have told her that pepLucidErad works faster for short term treatment 10/17/2023 Blood tests for routine general physical examination (ICD-10 - Z00.00) 10/31/2023 Hematuria, unspecified type (ICD-10 - R31.9) 04/30/2024 Hemorrhoids, external (ICD-10 - K64.4) 08/31/2023 Mild intermittent asthmatic bronchitis with acute exacerbation (ICD-10 - J45.21) Patient/Caregiver verbalizes understanding of medications side effects, interactions and warnings. 06/27/2024 Pain in right knee (ICD-10 - M25.561) will have her go back to [facility] 06/27/2024 Pain in left knee (ICD-10 - M25.562) 09/04/2023 Mild intermittent asthma without complication (ICD-10 - J45.20) 10/24/2023 Asymptomatic microscopic hematuria (ICD-10 - R31.21) was only 2 days after period, will recheck 12/25/2023 Tension headache (ICD-10 - G44.209) taking motrin 800 qidd for 2 or 3 days. sumatriptan didn't work 06/27/2024 Schatzki's ring (ICD-10 - K22.2) not bad enough to get dilitation at present 10/24/2023 Esophageal dysphagia (ICD-10 - R13.19) [facility] wll be called for an appt, pending diagnostic study 06/27/2024 Tension headache (ICD-10 - G44.209) has been using motrin and tyenol with good relief 10/24/2023 Occipital neuralgia of left side (ICD-10 - M54.81) referral to eli wolfe at [facility] [place] 10/24/2023 Depression screening (ICD-10 - Z13.31) negative screen PLAN OF TREATMENT Pending Test Test Name Order Date XR GI SERIES 10/24/2023 Next Appt Details Provider Name:Frankie jordan, 10/18/2024 07:00:00 AM, [address] [place] [address] Drive, [address], [place], [place], [phone], Provider Name:Frankie jordan, 10/25/2024 08:30:00 AM, [address], [address], [place], [place], [phone], Insurance Providers Payer Name Payer Address Payer Phone Subscriber Number Group Number Insured Name Patient Relationship to Insured Coverage Start Date Coverage End Date [address] [facility] [phone] [id number] Nancy Golden Self - patient is the insured [address] [place] [id number] Nancy Golden Self - patient is the insured MEDICAL (GENERAL) HISTORY Medical History History ICD Code 02/26/14 YELLOW FEVER VACCINATION
--- OUTSIDE RECORDS SUMMARY | 2024-08-27 09:22 | XMS_ITS | Patient Health Record ---
Author Organization [facility] Address [address] [place] [address] Care Team Providers Care Clinical Laboratory Aide Name Role Phone Frankie Hammonds MD Primary Care Provider Pito Jeff [phone] Allergies No Known Allergies Reason For Referral No Information Medications Medication SIG (Take, Route, Frequency, Duration) [...] 06/18/2024 Encounters Encounter Location Date [facility] [place] [address] 06/18/2024 Pito Flower Xerosis of skin L85.3 ; Achilles tendinitis of right lower extremity M76.61 and Pain of right heel M79.671 [facility] [address] [place] [address] 05/22/2024 Pito Flower Assessments Encounter Date Diagnosis (ICD Code) Assessment Notes Treatment Notes Treatment Clinical Notes Section Notes 06/18/2024 Achilles tendinitis of right lower extremity (ICD-10 - M76.61) Patient Educated with: HEEL CORD STRETCHES.pdf (HEEL CORD STRETCHES.pdf) Patient Educated with: RICE THERAPY.pdf (RICE THERAPY.pdf) 06/18/2024 Xerosis of skin (ICD-10 - L85.3) 06/18/2024 Pain of right heel (ICD-10 - M79.671) Plan Of Treatment No Information Insurance Providers Payer Name Payer Address Payer Phone Subscriber Number Group Number Insured Name Patient Relationship to Insured Coverage Start Date Coverage End Date [facility] [address] [place] [address] [id number] Nancy Golden Self - patient is the insured Medical (General) History Medical History History ICD Code asthma covid-19 Headaches/Migraines Chicken pox knee and foot pain when active
[2024-08-27] MEDS: 0.9 % Sodium Chloride 1,000 ML 999 ML IVCONT ×2 (09:29→12:56)
[2024-08-27] MEDS: diphenhydrAMINE HCL 50 MG/ML VIAL 12.5 MG IVPUSH (09:30)
[2024-08-27] MEDS: Metoclopramide HCl 10 MG/2 ML VIAL IVPUSH (09:32)
[2024-08-27 09:39] LABS: HCG Quantitative < 2 mIU/mL
[2024-08-27 09:45] LABS: Influenza A PCR NEGATIVE (Negative); Influenza B PCR NEGATIVE (Negative); Resp Syncy Virus RNA Qual PCR NEGATIVE (Negative); SARS COV2 PCR INHOUSE NEGATIVE (Negative)
[2024-08-27 10:50] VITALS: BP 122/77; PULSE 103; RESP 14; TEMP 36.7; O2SAT 100
--- NOTE | 2024-08-27 10:51 | PC.NURSE ---
reports diffuse upper abd pain that has been more noticeable since nausea has subsided. reported to Dr. Villanueva, CT ordered
[2024-08-27] MEDS: iohexoL 350 MG/ML 100 ML INFUS..BTL IV (11:43)
[2024-08-27] MEDS: ondansetron HCL 4 MG/2 ML VIAL IVPUSH (12:57)
[2024-08-27 13:16] LABS: Appearance Urine Clear; Color Urine Yellow; Glucose Urine UA Negative (Negative); Leukocyte Esterase Urine Negative (Negative); Nitrite Urine Negative (Negative); PH 8.5 (5.0-9.0); Specific Gravity - Urine >= 1.030 (1.005-1.025); Urine Blood Negative (Negative); Urine Ketones Negative (Negative); Urine Protein Negative (Neg-Trace)
[2024-08-27 14:27] VITALS: BP 118/70; PULSE 105; RESP 14; TEMP 36.5; O2SAT 100
[2024-08-27 15:21] VITALS: BP 118/70; PULSE 105; RESP 14; TEMP 36.5; O2SAT 100
== END 2024-08-27 15:22 | disposition home or self-care (01) ==
PROVIDERS: Physician Assistant Medical; Emergency Provider Emergency Medicine; PCP Internal Medicine
DX: R11.2 Nausea with vomiting, unspecified (principal); D25.9 Leiomyoma of uterus, unspecified; K21.9 Gastro-esophageal reflux disease without esophagitis; Z03.818 Encounter for observation for suspected exposure to other biological agents ruled out; J45.909 Unspecified asthma, uncomplicated; Z79.899 Other long term (current) drug therapy
CPT/HCPCS: 0241U; 36415; 74177; 76830; 76856; 80053; 81003; 84702; 85025; 96361; 96374; 96375; 99284; J1200; J2405; J2765; Q9967

== ENCOUNTER → 2024-08-27 10:20 | Outpatient (BNV) | payer OTHER, SELFPAY | PROVIDERS: Emergency Provider Emergency Medicine; PCP Internal Medicine; Visit Provider Radiology Diagnostic Radiology | DX: N85.2 Hypertrophy of uterus (principal) | CPT/HCPCS: 74177; 76830; 76856 ==

== ENCOUNTER 2024-10-18 11:01 | Outpatient (REF) | payer OTHER, SELFPAY ==
[2024-10-18 11:03] LABS: MANUAL DIFF FLAG NO
[2024-10-18 11:16] LABS: Appearance Urine Clear; Basophils Absolute Auto 0.1 X10*3/uL (0.0-0.2); Basophils Percent Auto 1.1 % (0-2); Color Urine Yellow; Eosinophils Absolute Auto 0.1 X10*3/uL (0.0-0.4); Eosinophils Percent Auto 2.1 % (0-4); Glucose Urine UA Negative (Negative); Hematocrit 38.4 % (37.0-47.0); Hemoglobin 12.9 g/dl (12.0-16.0); Imm Gran Abs Auto 0.01 X10*3/uL (0.00-0.03); Imm Gran Pct Auto 0.2 % (0.0-0.4); Leukocyte Esterase Urine Negative (Negative); Lymphocytes Absolute Auto 1.7 X10*3/uL (1.2-4.9); Lymphocytes Percent Auto 31.8 % (20-40); Mean Corpuscular HGB Conc 33.6 g/dl (31.0-35.0); Mean Corpuscular Volume 86.3 fL (80.0-98.0); Mean Platelet Volume 8.8 fL (9.4-12.3); Monocytes Absolute Auto 0.4 X10*3/uL (0.1-1.2); Neutrophils Absolute Auto 3.1 x10*3/uL (2.0-8.3); Neutrophils Percent Auto 57.8 % (45-73); Nitrite Urine Negative (Negative); PH 6.5 (5.0-9.0); Platelet Count 297 X10*3/uL (160-400); Red Blood Count 4.45 X10*6/uL (4.20-5.50); Red Cell Distribution Width 12.3 % (11.0-16.0); Specific Gravity - Urine 1.015 (1.005-1.025); Urine Blood Negative (Negative); Urine Ketones Negative (Negative); Urine Protein Negative (Neg-Trace); White Blood Count 5.3 X10*3/uL (4.8-10.8)
[2024-10-18 11:25] LABS: Bacteria Urine None Seen (None Seen); Hyaline Casts Urine 0-2 /LPF (0-2); RBC Urine 0-2 /HPF (0-2); Squamous Epithelial Cell Urine 0-2 /HPF (0-2); WBC Urine 0-5 /HPF (0-5)
[2024-10-18 11:51] LABS: Alanine Aminotransferase 25 U/L (0-31); Albumin Level 3.9 g/dL (3.5-5.0); Alkaline Phosphatase 71 U/L (39-117); Anion Gap 9 (12-20); Aspartate Amino Transferase 24 U/L (5-31); Bilirubin Total 0.4 mg/dL (0.0-1.0); Blood Urea Nitrogen 14 mg/dL (9-16); Carbon Dioxide 24 mmol/L (22-29); Chloride 107 mmol/L (96-108); Cholesterol 184 mg/dL (<200); Estimated Glomerular Filt Rate > 60; Glucose Fasting 89 mg/dL (60-99); HDL Cholesterol 61 mg/dL (>40); LDL Cholesterol Calculated 111 mg/dL (<100); Potassium 4.1 mmol/L (3.3-5.1); Sodium 136 mmol/L (135-145); Total Protein 6.7 g/dL (6.5-8.0); Triglycerides 64 mg/dL (<150)
--- OUTSIDE RECORDS SUMMARY | 2024-10-18 12:09 | XMS_ITS | Patient Health Record ---
Author Organization [facility] Address [address] [place] [address] Care Team Providers Care Centrifugal Casting Machine Operator Name Role Phone Nasra ALBRECHT, Frankie Primary Care Provider Qasim Sands Unavailable [phone] ALLERGIES No Known Allergies REASON FOR REFERRAL No Information MEDICATIONS Medication SIG (Take, Route, Frequency, Duration) Notes Start Date End Date Status Breo Ellipta 200-25 MCG/ACT INHALE ONE P UFF BY MOUTH EVERY DAY Inhalation for 30 Active Albuterol Sulfate HFA 108 (90 Base) MCG/ACT INHALE 2 PUFFS ORALLY EVERY 4 TO 6 HOURS NEEDED FOR SHORTNESS OF BREATH OR WHEEZING. Inhalation for 17 Active Ondansetron [address] 1 TABLET ON TH E TONGUE & ALLOW TO DISSOLVE ORALLY 3 TIMES A DAY NEEDED 7 DAYS. Oral for 5 Active Pantoprazole Sodium 40 MG Oral for 30 Active Gas Relief 80 MG 1 tablet after meals and at bedtime as needed Orally Four times a day 09/11/2024 Active IMMUNIZATIONS Vaccine Route Administration Date Status Comme nts Influenza Unknown 05/21/2024 Administered SOCIAL HISTORY Tobacco Use: Social History Observation Description Date Details (start date - stop date) Never Smoker NA - NA Sex Assigned At : Social History Observation Description Sex Assigned At Unknown Tobacco Use/Smoking Question Answer Notes Patient is a nonsmoker Alcohol Screen Question Answer Notes Did you [...] W/U Status Risk SNOMED Code Notes Problem Chronic GERD (K21.9) Active confirmed Gastroesophagea l reflux disease (disorder) (473636995) Problem Hiatal hernia (K44.9) Active confirmed Hiatal hernia (67771678) Problem Nausea with vomiting, unspecified (R11.2) Active confirmed Nausea and vomi ting (11355701) VITAL SIGNS Temperature 97.5 degrees Fahrenheit 09/11/2024 Blood pressure diastolic 00 mm Hg 09/11/2024 Height 5 ft 2 in in 09/11/2024 Blood pressure systolic 000 mm Hg 09/11/2024 Weight 225 lbs 09/11/2024 BMI 41.15 kg/m2 09/11/2024 Encounters Encounter Location Date Provider Diagnosis [facility] [address] [place] [address] 09/11/2024 Qasim Osborn Chronic GERD K21.9 ; Hiatal hernia K44.9 and Nausea with vomiting, unspecified R11.2 ASSESSMENTS Encounter Date Diagnosis Assessment Notes Treatment Notes Treatment Clinical Notes 09/11/2024 Hiatal hernia (ICD-10 - K44.9) 09/11/2024 Chronic GERD (ICD-10 - K21.9) 09/11/2024 Nausea with vomiting, unspecified (ICD-10 - R11.2) PLAN OF TREATMENT Future Test Test Name Order Date UPPER GI ENDOSCOPY 09/11/2024 Next Appt Details Provider Name:Qasim Osborn , 12/13/2024 01:00:00 PM, [address] , [place], [place], [phone], Insurance Providers Payer Name Payer Address Payer Phone Subscriber Number Group Number Insured Name Patient Relationship to Insured Coverage Start Date Coverage End Date [facility] [address] [place] [phone] [id number] JOANNE ZARCO Self - patient is the insured MEDICAL (GENERAL) HISTORY Medical History History ICD Code Asthma--sees [facility] Pulmonology Denies MA,DM,CVA,renal disease Neg. sleep study Surgical History Surgery Date(Month/Year) [place] eye surgery
--- OUTSIDE RECORDS SUMMARY | 2024-10-18 12:09 | XMS_ITS ---
Author Organization [facility] Address [address] [place] [address] Care Team Providers Care Ammunition And Explosives Handler Name Role Phone Frankie Hammonds MD Primary Care Provider Qasim Sands Unavailable [phone] ALLERGIES No Known Allergies REASON FOR VISIT Patient presents today for vomittting MEDICATIONS Medication SIG (Take, Route, Frequency, Duration) [...] Orally Four times a day 09/11/2024 Active SOCIAL HISTORY Tobacco Use: Social History Observation [...] Active confirmed Gastroesophagea l reflux disease (disorder) (325154992) Problem Hiatal hernia (K44.9) Active confirmed Hiatal hernia (72298954) Problem Nausea with vomiting, unspecified (R11.2) Active confirmed Nausea and vomi ting (09613332) VITAL SIGNS BMI 41.15 kg/m2 09/11/2024 Blood pressure systolic 000 mm Hg 09/11/19 25 Blood pressure diastolic 00 mm Hg 025 Height 5 ft 2 in in 09/11/2024 Temperature 97.5 degrees Fahrenheit 09/11/19 25 Weight 225 lbs 09/11/2024 Encounters Encounter Location Date Provider Diagnosis [facility] [address] [place] [address] 09/11/2024 Qasim Osborn Chronic GERD K21.9 ; Hiatal hernia K44.9 and Nausea with vomiting, unspecified R11.2 ASSESSMENTS Encounter Date Diagnosis Assessment Notes Treatment Notes Treatment Clinical Notes 09/11/2024 Chronic GERD (ICD-10 - K21.9) 09/11/2024 Hiatal hernia (ICD-10 - K44.9) 09/11/2024 Nausea with vomiting, unspecified (ICD-10 - R11.2) PLAN OF TREATMENT Medication Medication Name Sig Start Date Stop Date Notes Pantoprazole Sodium 40 MG Oral for 30 Future Test Test Name Order Date UPPER GI ENDOSCOPY 09/11/2024 Next Appt Details Follow Up: prn, Reason: Provider Name:Qasim Osborn , 12/13/2024 01:00:00 PM, [address] [place] [address], [phone], Progress Notes * Examination Category Sub-Category Detail Notes General Examination GENERAL APPEARANCE: pleasant , well nourished, well developed, in no acute distress HEAD: EYES: sclera non-icteric EARS: NOSE: THROAT: NECK/THYROID: no cervical lymphade nopathy, neck supple HEART: S1, S2 normal CHEST: LUNGS: clear to auscultatio n bilaterally ABDOMEN: normal bowel sounds, no guarding or rigidity, no guarding or rigidity, no masses palpable, soft, nontender, nondistended NEUROLOGIC: alert and oriented SKIN: nonjaundiced, no spi christopher angiomata EXTREMITIES: no edema PERIPHERAL PULSES: BACK: BREASTS: MUSCULOSKELETAL: MALE GENITOURINARY: LYMPH NODES: RECTAL EXAM: FEMALE GENITOURINARY: ORAL CAVITY: mucosa moist
--- OUTSIDE RECORDS SUMMARY | 2024-10-18 12:09 | XMS_ITS ---
Author Organization Frankie Hammonds MD Address [address] [place] [phone] Care Team Providers Care Cash Posting Clerk Name Role Phone Frankie Hammonds Primary Care Provider [phone] Allergies No Known Allergies REASON FOR VISIT 4 week Encounters Encounter Location Date Provider Diagnosis Frankie Hammonds MD [address] [facility] [address] [place] [phone] 10/18/2024 Frankie Hammonds Plan Of Treatment Next Appt Details Provider Name:Frankie Colorado ier, 10/25/2024 08:30:00 AM, 10 [facility], [address] [place] [address], [phone], Progress Notes * Nancy ZARCODOB: 3 (39 yo F)Acc No.[id number]:10/18/2024 Progress Notes Patient:?Nancy ZARCO Provider:?Frankie Hammonds MD :1985???Age:39 Y???Sex:Female D ate:10/18/2024 Address:[address] [place], [place] [phone] Subjective: * Chief Complaints: * ???1. 4 week. * ROS:?General/Constitutional:?Denies?Chills.?Denies?Fatigue.?Denies?Fever.?Denies?Headache.?ENT:?Denies?Sore throat.?Respiratory:?Denies?Cough.?Denies?Shortness of breath at rest.?Denies?Shortness of breath with exertion.?Gastrointestinal:?Denies?Diarrhea.?Denies?Nausea.? * Medical History:?02/26/14 YELL OW FEVER VACCINATION. * Allergies:?N.K.D.A. Objective: * Vitals:? Assessment: Plan: * Treatment: * * The named appointment provid er may or may not be the originator of this progress note, and it is not deemed complete until electronically signed by the appointment provider. Sign off status: Pending * Provider:?Frankie Hammonds MD Date:?0 10/18/2024 Generated for Humza ramon/Carmina/Natasha on:?10/18/2024 12:08 PM EST
--- OUTSIDE RECORDS SUMMARY | 2024-10-18 12:09 | XMS_ITS ---
[facility] Address [address] [facility] [place] [address] Care Team Providers Care Instrumentation Instructor Name Role Phone Frankie Hammonds MD Primary Care Provider Pito Jeff [phone] Allergies No Known Allergies REASON FOR VISIT [...] 06/18/2024 Encounters Encounter Location Date Provider Diagnosis [facility] [address] [address] 06/18/2024 Pito Flower Xerosis of skin L85. [...] * Nancy ZARCODOB: 3 (38 yo F)Acc No.[id number]:06/18/2024 Progress Notes Patient:?[place] Nancy Provider:?Pito Flower D.P.M. :1985???Age:38 Y???Sex:Female D ate:06/18/2024 Address: [address] [facility] Pcp:Frankie Hammonds MD Subjective: * Chief Complaints: * ???Last visit pcp 09/2023Ski n problem(s)Heel pain * HPI: ???Skin problems:?Nature:?dryness , scaling.?Location:?Top , Bottom , B/L.?Duration:?a few months.?Onset/Cause:?unknown.?Course:?unresolved.?Aggravated by:?shoe gear.?Treatments:?OTC creams.?Severity/Quality:?moderate.?Heel pain:?Location:?Back of heel , B/L.?Duration:?several days.?Onset/Cause:?Due to increaseds walking at [employer].?Course:?improved.?Aggravated:?standing, walking, walking first thing in the morning/after [...] ?no Children. ?Exercise: yes, work out with life trainer twice a week. ?Marital status: single. ?Occupation: [employer], [employer]. * Medications:?TakingAlbuterol Sulfate HFA 108 (90 Base) [...] posterior and posterior/superior heel present, B/L, Neg Newell.? Assessment: * Assessment: 1.?Achilles tendinitis of ri [...] 400 Gram, Refills 2.?? * Procedures:?Application of [place]-Soothe skin care lotion to both feet. ? [...] Interfil injection therapy, as well as surgical [place]/Calcanectomy- tendon debridement surgical procedures if needed. Recommendations [...] Flower D.P.M. Date:?05/29 Generated for Humza ramon/Carmina/Earlitting on:?10/18/2024 12:09 PM EST History and Physical Notes * HPI (History of Present Illness) Category Sub-Category Detail Notes Category Not es Heel pain Duration: several days Location: Back of heel , B/L Onset/Cause: Due to increaseds wa lking at [employer] Aggravated: standing, walking, w alking first thing [...] posterior and posterior/superior heel present, B/L, Neg Newell Neurological SENSORY: Neurological exa m reveals intact [...]
--- OUTSIDE RECORDS SUMMARY | 2024-10-18 12:09 | XMS_ITS | Patient Health Record ---
Author Organization [facility] [place] Address [address] [facility] [place] [address] Care Team Providers Care Grain Shoveler Name Role Phone Frankie Hammonds MD Primary Care Provider Pito Jeff [phone] Allergies No Known Allergies Reason For Referral [...] 06/18/2024 Encounters Encounter Location Date [facility] [place] [address] 06/18/2024 Pito Flower Xerosis of skin L85.3 ; Achilles tendinitis of right lower extremity M76.61 and Pain of right heel M79.671 [facility] [place] [address] [place] [address] 05/22/2024 Pito Flower Assessments Encounter Date Diagnosis [...] Insured Coverage Start Date Coverage End Date [facility] [address] [facility] [place] [id number] Nancy Golden Self - patient is the insured Medical (General) History Medical History History ICD Code asthma covid-19 Headaches/Migraines Chicken pox knee and foot pain when active
--- OUTSIDE RECORDS SUMMARY | 2024-10-18 12:09 | XMS_ITS ---
Author Organization Frankie Hammonds MD Address [address] [place] [phone] Care Team Providers Care Hypo Splasher Name Role Phone Frankie Hammonds Primary Care Provider [phone] REASON FOR VISIT FYI GOLF COACH appt Encounters Encounter Location Date Provider Diagnosis Frankie Hammonds MD [address] [facility] [address] [place] [phone] 10/01/2024 Frankie Hammonds Plan Of Treatment Next Appt Details Provider Name:Frankie Colorado ier, 10/25/2024 08:30:00 AM, [facility], [address] [place] [address], [phone], Progress Notes * Nancy ZARCODOB: 3 (39 yo F)Acc No.[id number]:10/01/2024 Patient:?Nancy ZARCO :1985???Age:39 Y???Sex:Female Address:[address] [place] [phone] * true * Date:? Generated for Printi ng/Faxing/eTransmitting on:?10/18/2024 12:09 PM EST
--- OUTSIDE RECORDS SUMMARY | 2024-10-18 12:10 | XMS_ITS ---
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 Generated for Printi ng/Faclaudineg/eTransmitting on:?10/18/2024 12:09 PM EST
--- OUTSIDE RECORDS SUMMARY | 2024-10-18 12:10 | XMS_ITS ---
Author Organization Frankie Hammonds MD Address [address] [place], [place] [phone] Care Team Providers Care Singer And Unloader Name Role Phone Frankie Hammonds Primary Care Provider [phone] Results Component Value Reference Range Notes Complete Blood Count Auto Di ff (Not yet reviewed by provider) Interpretation: Performing Lab:[facility], [address] [place] [phone] Notes/Report: White Blood Count 5.3 4.8-10.8 X10*3/uL Red Blood Count 4.45 4.20-5.50 X10*6/uL Hemoglobin 12.9 12.0-16.0 g/dl Hematocrit 38.4 37.0-47.0 % Mean Corpuscular Volume 86.3 80.0-98.0 fL Mean Corpuscular Hemoglobin 29.0 27.0-33.0 pg Mean Corpuscular HGB Conc 33.6 31.0-35.0 g/dl Red Cell Distribution Width 12.3 11.0-16.0 % Platelet Count 297 160-400 X10*3/uL Mean Platelet Volume 8.8 9.4-12.3 fL Neutrophils Percent Auto 57.8 45-73 % Imm Gran Pct Auto 0.2 0.0-0.4 % Lymphocytes Percent Auto 31.8 20-40 % Monocytes Percent Auto 7.0 2-11 % Eosinophils Percent Auto 2.1 0-4 % Basophils Percent Auto 1.1 0-2 % NRBC Pct Auto 0.0 0.0-0.2 /100WBC Neutrophils Absolute Auto 3.1 2.0-8.3 x10*3/u L Imm Gran Abs Auto 0.01 0.00-0.03 X10*3/uL Lymphocytes Absolute Auto 1.7 1.2-4.9 X10*3/u L Monocytes Absolute Auto 0.4 0.1-1.2 X10*3/uL Eosinophils Absolute Auto 0.1 0.0-0.4 X10*3/u L Basophils Absolute Auto 0.1 0.0-0.2 X10*3/uL NRBC Abs Auto 0.000 0.0-0.012 X10*3/uL Comprehensive Whitefish. Panel Fa (Not yet reviewed by provider) Interpretation: Performing Lab:[facility], [address] [place] [phone] Notes/Report: Sodium 136 135-145 mmol/L Potassium 4.1 3.3-5.1 mmol/L Chloride 107 96-108 mmol/L Carbon Dioxide 24 22-29 mmol/L Anion Gap 9 12-20 Blood Urea Nitrogen 14 9-16 mg/dL Creatinine 0.78 0.5-1.4 mg/dL Estimated Glomerular Filt Rate > 60 Chronic Kidney Disease: Estimated GFR < 60 mL/min/1.73m2 Severe Kidney Disease: Estimated GFR < 15 mL/min/1.73m2 Glucose Fasting 89 60-99 mg/dL Calcium 9.0 8.4-10.2 mg/dL Bilirubin Total 0.4 0.0-1.0 mg/dL Aspartate Amino Transferase 24 5-31 U/L Alanine Aminotransferase 25 0-31 U/L Total Protein 6.7 6.5-8.0 g/dL Albumin Level 3.9 3.5-5.0 g/dL Alkaline Phosphatase 71 39-117 U/L Lipid Panel (Not yet reviewe d by provider) Interpretation: Performing Lab:[facility], [address] [place] [phone] Notes/Report: Triglycerides 64 <150 mg/dL Desirable Triglyceride: less than 150 mg/dL Borderline High Triglyceride 150-199 mg/dL High Triglyceride: 200-499 mg/dL Very High Triglyceride: greater than or equal to 5OO mg/dL Cholesterol 184 <200 mg/dL Desirable Cholesterol: less than 200 mg/dL Borderline High Cholesterol: 200-239 mg/dL High Cholesterol: greater than 239 mg/dL LDL Cholesterol Calculated 111 <100 mg/dL Desirable LDL: less than 100 mg/dL Near Optimal/Above Optimal LDL: 110-129 mg/dL Borderline High LDL: 130-159 mg/dL High LDL: 160-189 mg/dL Very High LDL: greater than or equal to 190 mg/dL HDL Cholesterol 61 >40 mg/dL Desirable HDL: greater than 40 mg/dL Note: This HDL assay may give artificially low results in patients with liver disease. UA ClnCatch+Micro w/rflx Cul t (Not yet reviewed by provider) Interpretation: Performing Lab:[facility], [address] [place] [phone] Notes/Report: Urine, Clean Catch Color Urine Yellow Appearance Urine Clear PH 6.5 5.0-9.0 Glucose Urine UA Negative Negative mg/dL Urine Blood Negative Negative Specific [place] - Urine 1.015 1.005-1.025 Urine Protein Negative Neg-Trace mg/dL Urine Ketones Negative Negative mg/dL Nitrite Urine Negative Negative Leukocyte Esterase Urine Negative Negative RBC Urine 0-2 0-2 /HPF WBC Urine 0-5 0-5 /HPF Squamous Epithelial Cell Urine 0-2 0-2 /HPF Bacteria Urine None Seen None Seen Hyaline Casts Urine 0-2 0-2 /LPF REASON FOR VISIT yearly fasting labs Encounters Encounter Location Date Provider Diagnosis Frankie Hammonds MD [address] [facility] [address] [place], [place] [phone] 10/18/2024 Frankie Hammonds Blood tests for routine general physical examination Z00.00 Assessments Encounter Date Diagnosis (ICD Code) Assessment Notes Treatment Notes Treatment Clinical Notes Section Notes 10/18/2024 Blood tests for routine general physical examination (ICD-10 - Z00.00) Plan Of Treatment Pending Test Test Name Order Date Complete Blood Count Auto Diff 5 Comprehensive Whitefish. Panel Fast 5 Lipid Panel 10/18/2024 UA ClnCatch+Micro w/rflx Cult 10/18/2024 Next Appt Details Provider Name:Frankie Colorado ier, 10/25/2024 08:30:00 AM, [address] [place] [address], [address], [place], [place], [phone], Progress Notes * Nancy ZARCODOB: 3 (39 yo F)Acc No.[id number]:10/18/2024 Progress Note Patient:Nancy BRASHER Provider:?Frankie Hammonds MD :1985???Age:39 Y???Sex:Female D ate:10/18/2024 Address:[address] [place], [place] [phone] Subjective: * Chief Complaints: * ???1. Yearly fasting labs. * Medical History:? Objective: * Vitals:? Assessment: * Assessment: 1.?Blood tests for routine g eneral physical examination - Z00.00 (Primary)??? Plan: * Treatment: * Procedure Codes:?56895 VENIP UNCT, ROUTINE* * * The named appointment provid er may or may not be the originator of this progress note, and it is not deemed complete until electronically signed by the appointment provider. Sign off status: Pending * Provider:?Frankie Hammonds MD Date:?0 10/18/2024 Generated for Humza ramon/Carmina/eTjuliannsmitting on:?10/18/2024 12:09 PM EST
--- OUTSIDE RECORDS SUMMARY | 2024-10-18 12:10 | XMS_ITS | Patient Health Record ---
Author Organization Frankie Hammonds MD Address [address] [place], [place] [id number] Care Team Providers Care [employer] Person Name Role Phone Frankie Hammonds Primary Care Provider Allergies No Known Allergies Results Component Value Reference Range Notes UA ClnCatch+Micro w/rflx Cul t Reviewed date:10/31/2023 04:03:56 PM Interpretation: Performing Lab:[facility], [address] [place] [phone] Notes/Report: Urine, Clean Catch Color Urine Yellow Appearance Urine Clear PH 8.0 5.0-9.0 Glucose Urine UA Negative Negative mg/dL Urine Blood Negative Negative Specific [place] - Urine 1.010 1.005-1.025 Urine Protein Negative Neg-Trace mg/dL Urine Ketones Negative Negative mg/dL Nitrite Urine Negative Negative Leukocyte Esterase Urine Small (1+) Negative RBC Urine 0-2 0-2 /HPF WBC Urine 0-5 0-5 /HPF Squamous Epithelial Cell Urine 0-2 0-2 /HPF Bacteria Urine None Seen None Seen Hyaline Casts Urine 0-2 0-2 /LPF Complete Blood Count Auto Di ff (Not yet reviewed by provider) Interpretation: Performing Lab:[address] [phone] Notes/Report: White Blood Count 5.3 4.8-10.8 X10*3/uL [...] 0.0-0.2 /100WBC Neutrophils Absolute Auto 3.1 2.0-8.3 x10*3/uL Imm Gran Abs Auto 0.01 0.00-0.03 X10*3/uL Lymphocytes Absolute Auto 1.7 1.2-4.9 X10*3/uL Monocytes Absolute Auto 0.4 0.1-1.2 X10*3/uL Eosinophils Absolute Auto 0.1 0.0-0.4 X10*3/uL Basophils Absolute Auto 0.1 0.0-0.2 X10*3/uL NRBC Abs Auto 0.000 0.0-0.012 X10*3/uL Comprehensive [place]. Panel Fa st (Not yet reviewed by provider) Interpretation: Performing Lab:[facility], [address], [place] [address] Notes/Report: Sodium 136 135-145 mmol/L Potassium 4.1 [...] yet reviewe d by provider) Interpretation: Performing Lab:[facility], [address] [place] [phone] Notes/Report: Triglycerides 64 <150 mg/dL Desirable Triglyceride: [...] (Not yet reviewed by provider) Interpretation: Performing Lab:[facility], [address] [place] [phone] Notes/Report: Urine, Clean Catch Color Urine Yellow Appearance Urine Clear PH 6.5 5.0-9.0 Glucose Urine UA Negative Negative mg/dL Urine Blood Negative Negative Specific [place] - Urine 1.015 1.005-1.025 Urine Protein Negative Neg-Trace mg/dL Urine Ketones Negative Negative mg/dL Nitrite Urine Negative Negative Leukocyte Esterase Urine Negative Negative RBC Urine 0-2 0-2 /HPF WBC Urine 0-5 0-5 /HPF Squamous Epithelial Cell Urine 0-2 0-2 /HPF Bacteria Urine None Seen None Seen Hyaline Casts Urine 0-2 0-2 /LPF Urine Culture Reviewed date:11/01/2023 04:33:37 PM Interpretation: Performing Lab:[address] [phone] Notes/Report: Urine Culture Report Result Urine Culture 10,000 to 50,000 cfu/ml Urine Culture Mixed bacterial cathy a characteristic of Urine Culture urogenital contamination. SARS-CoV2/FLU/RSV Reviewed date:11/27/2023 09:27:21 AM Interpretation: Performing Lab:[facility], [address] [place] [phone] Notes/Report: Influenza A PCR NEGATIVE Negative Influenza [...] by authorized laboratories. Testing performed on the [employer] GeneXpert utilizing real-time RT-PCR. All SARS CoV2 and positive influenza A/B results are reported to [facility]. XR chest 2V Reviewed date:11/27/2023 10:11:31 AM Interpretation: Performing Lab: Notes/Report: [address] [address] XRay Report Signed Patient: Nancy Golden MR#: [id number] 44 : 1985 Acct:[id number] Age/Sex: 38 / F ADM Date: 11/27/23 Loc: .ED Attending Dr: Ordering Physician: Steven Marcelino MD Date of Service: 11/27/23 Procedure(s): XR chest 2V Accession Number(s): [id number] cc: Frankie Hammonds MD; Steven Marcelino MD [...] signed by Martell Ram MD in OV> 11/27/[address] DD/ 0758 TD/TT: Planning Intern: [address] [address] XRay Report Signed Patient: Vivienne Golden MR#: [id number] 44 : 1985 Acct:[id number] Age/Sex: 38 / F ADM Date: 11/27/23 Loc: HO.ED Attending Dr: Ordering Physician: Steven Marcelino MD Date of Service: 11/27/23 Procedure(s): XR andie st 2V Accession Number(s): [id number] cc: Frankie Hammonds MD; Steven Marcelino MD EXAMINATION: XR CHEST CLINICAL INFORMATION: Cough, shortness of breath and asthma COMPARISON: None available. TECHNIQUE: 2 views of the chest were obtained. FINDINGS: No significant abnormality is noted involving the heart, lungs, mediastinum, bony th orax or soft tissues. X R/XR chest 2V IMPRESSION: Unremarkable examination. Dictated By: Martell Ram MD Signed By: <Electronically signed by Martell Ram MD in OV> 11/27/23816 DD/ 0758 TD/TT: Travel Attendants ist: [place] upper GI w air Reviewed date:12/25/2023 09:21:02 AM Interpretation[facility] UPPER GI Performing Lab: Notes/Report: [address] [address] Fluoroscopy Report Signed Patient: Nancy Golden MR#: [id number] 44 : 1985 Acct:[id number] Age/Sex: 38 / F ADM Date: 12/21/23 Loc: HO.XRAY Attending Dr: Frankie Hammonds MD Ordering Physician: Frankie Hammonds MD Date of Service: 12/21/23 Procedure(s): FL upper GI w air Accession Number(s): [id number] cc: Frankie Hammonds MD EXAMINATION: XR FLUOROSCOPY [...] in OV> 12/22/23 1404 DD/ 0815 TD/TT: Planning Intern: [address] [address] Fluoroscopy Report Signed Patient: Vivienne Golden MR#: [id number] 44 : 1985 Acct:[id number] Age/Sex: 38 / F ADM Date: 12/21/23 Loc: HO.XRAY Attending Dr: Frankie Hammonds MD Ordering Physician: Frankie Hammonds MD Date of Service: 12/21/23 Procedure(s): FL upp er GI w air Accession Number(s): [id number] cc: Frankie Hammonds MD EXAMINATION: XR FLUOROSCOPY UPPER GI WITH AIR CLINICAL INFORMATION: Dysphagia. Reflux COMPARISON: None TECHNIQUE: Fluoroscopic air contrast upper GI examination was performed utilizing standard techniques with thin and thick barium and effervescent granules. Numerous s pot images were obtained. FINDINGS: Lateral cine images of the oropharynx and hypopharynx demonstrates a delayed swallow mechanism with normal epiglottic inversion and soft palate elevation. No tracheal penetration, glottic or subglottic aspiration identifie d. No nasopharyngeal reflux present. Hypopharyngeal structures appear no rmal without evidence of mass or diverticulum. There was no signifi cant cricopharyngeal achalasia. Dual and single cont rast images of the esophagus demonstrate normal caliber, contour, an d mucosal pattern. No evidence of stricture, mass, or ulcerations identified. Esophageal peristalsis was normal. A moderate-sized typ e I hiatal hernia is present. There is a wide open Schatzki's ring pres ent. No significant gastroesophageal reflux was seen during the cour se of the examination and on reflux views. Dual contrast and si ngle contrast images of the stomach demonstrated normal contour and mucosal pattern without evidence of mass, ulceration, or other abnormality. Contrast freely passed into the gastric antrum and duodenal bulb without delay. Single and air-contr ast images of the duodenal bulb demonstrate no abnormality. The duodenal sweep has a normal appearance, course, and mucosal fold appeara nce. No malrotation. The imaged proximal jejunum has a normal fold pattern and caliber. FLUOROSCOPY TIME: 3 minutes 24 seconds Number of Spot Images: 8 Number of Cine: 10 DOSE AREA PRODUCT: 2450 uGy-m2 (microgray-meter squared) F L/[place] upper GI w air IMPRESSION: 1. Delayed swallowin g mechanism, however no aspiration was seen during this examination. 2. Moderate-sized ty pe I hiatal hernia. 3. Wide open Schatzk i's ring. This procedure was performed by Igor Mason PA-C, and supervised by Dr. Allen Dictated By: Yann Mason Signed By: <Electronically signed by Igor Mason in OV> 12/22/23 1401 <Electronically sign ed by Brody Allen MD in OV> 12/22/23 1404 DD/ 0815 TD/TT: Planning Intern: CANDY DURON w/rflx Micro + Cult Reviewed date:08/27/2024 04:28:23 PM Interpretation: Performing Lab:[facility], [address] [place] [phone] Notes/Report: [id number] Urine, Clean Catch Color Urine Yellow Appearance Urine Clear PH 8.5 5.0-9.0 Glucose Urine UA Negative Negative mg/dL Urine Blood Negative Negative Specific [place] - Urine >= 1.030 1.005-1.025 Urine Protein Negative Neg-Trace mg/dL Urine Ketones Negative Negative mg/dL Nitrite Urine Negative Negative Leukocyte Esterase Urine Negative Negative CT abdomen pelvis w con Reviewed date:08/27/2024 04:28:05 PM Interpretation: Performing Lab: Notes/Report: [address] [address] [address] Scan Report Signed Patient: Nancy Golden MR#: [id number] 44 : 1985 Acct:[id number] Age/Sex: 39 / F ADM Date: 08/27/24 Loc: HO.ED Attending Dr: Ordering Physician: Guido Villanueva MD Date of Service: 08/27/24 Procedure(s): CT abdomen pelvis w IV con Accession Number(s): [id number] cc: Frankie Hammonds MD; Guido Villanueva MD Report Number: [id number]: Total DLP = 1097.00 mGy-cm EXAMINATION: CT ABDOMEN AND PELVIS WITH CONTRAST CLINICAL INFORMATION: Abdominal pain COMPARISON: None available. TECHNIQUE: Multidetector volumetric images were obtained from the superior aspect of the liver through the pubic symphysis following administration 85 mL of Omnipaque 350 intravenous contrast. Sagittal and coronal reformatted images were obtained on the technologist's workstation. Oral contrast: No This CT examination was performed using dose optimization techniques as appropriate, variously including the following: *Automated exposure control *Adjustment of mA and/or kV according to patient size (this includes techniques or standardized protocols for targeted exams where dose is matched to indication/reason for exam; i.e. extremities or head) *Use of iterative reconstruction technique DLP: 1097 mGy-cm FINDINGS: LUNG BASES: There is bibasilar dependent atelectasis or scarring. Heart size is normal. A small hiatal hernia is noted. LIVER, GALLBLADDER, AND BILIARY TREE: The liver is normal in size, shape, and attenuation. No focal hepatic lesion or biliary ductal dilatation is present. The gallbladder is unremarkable with no evidence of radiopaque gallstones, gallbladder wall thickening, or obvious pericholecystic inflammatory changes. PANCREAS: Unremarkable. SPLEEN: Unremarkable. ADRENAL GLANDS: Unremarkable. KIDNEYS AND URETERS: The kidneys are normal in size, shape, and attenuation. No hydronephrosis, hydroureter, or calculi seen. No perinephric stranding. BLADDER: Unremarkable. GASTROINTESTINAL TRACT: The small and large bowel are unremarkable. The appendix is unremarkable. ABDOMINAL WALL: Tiny umbilical hernia containing fat LYMPH NODES: Normal. VASCULAR: Unremarkable. PELVIC VISCERA: There is a large uterine mass likely arising from the fundus and extending to the level of umbilicus. It measures at least 12.9 cm in the craniocaudad length and 10.3 cm wide. It deviates the endometrial canal to the right. There are additional lesions in the lower uterine segment. These are most suggestive of fibroids. There is no free fluid in the cul-de-sac. OSSEOUS STRUCTURES: No aggressive lytic or sclerotic process seen. CT/CT abdomen pelvis w IV con IMPRESSION: Large fundal uterine mass likely fibroid. There are additional masses seen in the lower uterine segment. Recommend ultrasound correlation. Otherwise no acute intra-abdominal process seen. Fleischner guidelines were followed. Electronically signed by: Mihai Butterfield MD 08/27/2024 12:30 PM [facility] [place]ict[place] By: Mihai Butterfield MD Signed By: <Electronically signed by Mihai Butterfield MD in OV> 08/27/24 1230 DD/ 1020 TD/TT: 08/27/24 1211 Planning Intern: [address] [address] [address] Scan Report Signed Patient: Vivienne Golden MR#: [id number] 44 : 1985 Acct:[id number] Age/Sex: 39 / F ADM Date: 08/27/24 Loc: HO.ED Attending Dr: Ordering Physician: Guido Villanueva MD Date of Service: 08/27/24 Procedure(s): CT abd omen pelvis w IV con Accession Number(s): [id number] cc: Frankie Hammonds MD; Guido Villanueva MD Report Number: [id number]: Total DLP = 1097.00 mGy-cm EXAMINATION: CT ABDOMEN AND PELVI S WITH CONTRAST CLINICAL INFORMATION: Abdominal pain COMPARISON: None available. TECHNIQUE: Multidetector volume tric images were obtained from the superior aspect of the liver through the pubic symphysis following administration 85 mL of Omnipaque 350 intravenous contrast. Sagittal and coronal reformatted images were obtained on the technologist's workstation. Oral contrast: No This CT examination was performed using dose optimization techniques as appropriate, various ly including the following: *Automated exposure control *Adjustment of mA an d/or kV according to patient size (this includes techniques or standardized protocols for targeted exams where dose is matched to indication/reason for exam; i.e. extremities or head) *Use of iterative reconstruction technique DLP: 1097 mGy-cm FINDINGS: LUNG BASES: There is bibasilar dependent atelectasis or scarring. Heart size is normal. A sm all hiatal hernia is noted. LIVER, GALLBLADDER, AND BILIARY TREE: The liver is normal in size, shape, and attenuati on. No focal hepatic lesion or biliary ductal dilatation is presen t. The gallbladder is unremarkable with no evidence of radiopaque gallstones, gallbladder wall thickening, or obvious pericholecystic inflammatory changes. PANCREAS: Unremarkable. SPLEEN: Unremarkable. ADRENAL GLANDS: Unremarkable. KIDNEYS AND URETERS: The kidneys are normal in size, shape, and attenuation. No hydronephrosis, hydroureter, or calculi seen. No perinephric stranding. BLADDER: Unremarkable. GASTROINTESTINAL TRA CT: The small and large bowel are unremarkable. The appendix is unremarkable. ABDOMINAL WALL: Tiny umbilical hernia containing fat LYMPH NODES: Normal. VASCULAR: Unremarkable. PELVIC VISCERA: Ther e is a large uterine mass likely arising from the fundus and extending to the level of umbilicus. It measures at least 12.9 cm in the craniocaudad length and 10.3 cm wide. It deviates the endometrial canal to the right. There are additional lesions in the lower uterine segmen t. These are most suggestive of fibroids. There is no free fluid in the cul-de-sac. OSSEOUS STRUCTURES: No aggressive lytic or sclerotic process seen. C T/CT abdomen pelvis w IV con IMPRESSION: Large fundal uterine mass likely fibroid. There are additional masses seen in the lower uterine segment. Recommend ultrasound correlation. Otherwise no acute intra-abdominal process seen. Fleischner guideline s were followed. 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 Lab: Notes/Report: [address] [address] Ultrasound Report Signed Patient: Nancy Golden MR#: [id number] 44 : 1985 Acct:[id number] Age/Sex: 39 / F ADM Date: 08/27/24 Loc: HO.ED Attending Dr: Ordering Physician: Guido Villanueva MD Date of Service: 08/27/24 Procedure(s): US pelvic and transvaginal Accession Number(s): [id number] cc: Frankie Hammonds MD; Guido Villanueva MD EXAMINATION: US PELVIS CLINICAL INFORMATION: Fibroid disease COMPARISON: CT abdomen and pelvis 08/27/2024 TECHNIQUE: Ultrasound of the pelvis is performed using both transabdominal and transvaginal transducers along with Doppler. Transvaginal imaging is performed due to inadequate visualization transabdominally. FINDINGS: Uterus: The uterus is anteverted and measures 16.9 x 9.5 x 10.1 cm. The double wall endometrial thickness is not visualized.. There are multiple hypoechoic uterine lesion seen suggestive of fibroid. The largest fibroid in the fundus measures 10.0 x 9.4 x 9.6 cm. Hyper lesion in the right anterior body the uterus measures 3.5 x 2.9 x 2.9 cm. A smaller hypoechoic lesion in the posterior body of uterus measures 2.0 x 1.3 x 1.7 cm and slightly larger lesion in anterior lower uterine segment measures 6.7 x 5.1 x 6.6 cm. Adnexa: Both ovaries are visualized. There is normal color flow to the adnexa. There is no ovarian torsion. There is no pelvic ascites or fluid collection. Both ovaries are not visualized. There is no free fluid in cul-de-sac US/US pelvic and transvaginal IMPRESSION: Multiple uterine fibroids large is in the fundus measuring 10 cm. The endometrial canal is not visualized due to fibroids. Ovaries are not seen. Electronically signed by: Mihai Butterfield MD 08/27/2024 02:09 PM [facility] [place] Dictated By: Mihai Butterfield MD Signed By: <Electronically signed by Mihai Butterfield MD in OV> 08/27/24 1409 DD/ 1322 TD/TT: 08/27/24 1341 Planning Intern: [address] [address] Ultrasound Report Signed Patient: Vivienne Golden MR#: [id number] 44 : 1985 Acct:[id number] Age/Sex: 39 / F ADM Date: 08/27/24 Loc: .ED Attending Dr: Ordering Physician: Guido Villanueva MD Date of Service: 08/27/24 Procedure(s): US pel and transvaginal Accession Number(s): [id number] cc: Frankie Hammonds MD; Guido Villanueva MD EXAMINATION: US PELVIS CLINICAL INFORMATION: Fibroid disease COMPARISON: CT abdomen and pelvi s 08/27/2024 TECHNIQUE: Ultrasound of the pe lvis is performed using both transabdominal and transvaginal transdu cers along with Doppler. Transvaginal imaging is performed due to inadequate visualization transabdominally. FINDINGS: Uterus: The uterus is anteve rted and measures 16.9 x 9.5 x 10.1 cm. The double wall endometrial thickness is not visualized.. There are multiple hypoechoic uterine lesion seen suggestive of fibroid. The largest fibroid in the fundus measures 10.0 x 9.4 x 9.6 cm. Hyper lesion in the right anterior body the uterus measures 3.5 x 2.9 x 2.9 cm. A smal ler hypoechoic lesion in the posterior body of uterus measures 2.0 x 1.3 x 1.7 cm and slightly larger lesion in anterior lower uteri ne segment measures 6.7 x 5.1 x 6.6 cm. Adnexa: Both ovaries are visualized. There is normal color flow to the adnexa. There is no ovarian torsion. There is no pelvic ascites or fluid collection. Both ovaries are not visualized. There is no free flu id in cul-de-sac U S/US pelvic and transvaginal IMPRESSION: Multiple uterine fibroids large is in the fundus measuring 10 cm. The endometrial canal is not visualized due to fibroids. Ovaries are not seen. Electronically serge d by: Mihai Butterfield MD 08/27/2024 02:09 PM [facility] [place] Dictated By: Mr jeovany Butterfield MD Signed By: <Electronically signed by Mihai Butterfield MD in OV> 08/27/24 1409 DD/ 1322 TD/TT: 08/27/24 1341 Planning Intern: HARPREET Reason For Referral Reason mild intermittent as thma Diagnosis 1 [...] [facility] [address] 11/03/2023 02:27:29 PM EST > called patint [...] Last Name Nasra Referring Provider Speciality Internal edicine Referred Provider NICOLE FARFAN Referred Provider Specialty Orthopedic S urgery General Notes Zahraa Torres 12:47:11 PM EDT > referral and [facility] appt request form faxed with note , Zahraa Torres 07/01/2024 08:35:38 AM EST > appt is with Harvey [facility] Melissa Annette 07/01/2024 08:39:26 AM EST > info mailed to patient Referral Priority Routine Referral Appointment Date 07/18/2024 Reason Hyperemesis Diagnosis 1 Hyperemesis (R11.10) Referral Organization Frankie Hammonds MD Referring Provider First Name Frankie Referring Provider Last Name Nasra Referring Provider Speciality Internal edicine Referred Provider Qasim Alaniz Referred Provider Specialty Gastroentero logy General Notes Zahraa Torres 0 08/30/2024 03:25:41 PM referral info faxed to Dr. Alaniz office Referral Priority Routine Referral Appointment Date 09/11/2024 Medications Medication SIG (Take, Route, Frequency, Duration) Notes Start Date End Date Status Triamcinolone Acetonide 0.1 % 1 application Externally Two times a Week for 10 days 04/30/2024 Active Albuterol Sulfate 1.25 MG/3ML as directed Inhalation every 6 hrs for 30 days 11/30/2023 Active Breo Ellipta 200-25 MCG/INH 1 puff Inhalation Once a day 10/14/2021 Active Ondansetron 4 MG 1 tablet on the tong ue and allow to dissolve Orally Once a day for 30 day(s) Active Pantoprazole Sodium 40 MG 1 tablet 1/2 t o 1 hour before morning meal Orally Once a day for 30 days 08/30/2024 Active Hyoscyamine Sulfate ER 0.375 MG 1 tablet Orally once a day for 30 day(s) 09/06/2018 Not-Taking Immunizations Vaccine Route Administration Date Status Comme nts [...] Unknown 06/13/2015 Refused Tetanus Unknown 02/26/2014 Pending Social History Tobacco Use: Social History Observation Description Date Details (start date - stop date) Never Smoker NA - NA Tobacco Use/Smoking Question Answer Notes Patient is [...] Never (0 point) Points 1 Interpretation Negative Problems Problem Type SNOMED Code ICD Code Onset Dates Problem Status W/U Status Risk Notes Problem 240694270 Body mass index (BMI) 36.0-36.9, adult (Z68.36) Active confirmed Problem 246133784 Mild intermitten t asthma without complication (J45.20) Active confirmed Problem 439777842 Schatzki's ring (K22.2) Active confirmed Problem 060234829 Tension headache (G44.209) Active confirmed Problem 832812944 Oral phase dysphagia (R13.11) Active confirmed Problem 18594203 Irritable bowel syndrome with both constipation and diarrhea (K58.2) Active confirmed Problem 137348257 BMI 37.0-37.9, adult (Z68.37) Active confirmed Problem 088077583 Mild intermitten t asthmatic bronchitis with acute exacerbation (J45.21) Active confirmed Problem 424976984 Adult general medical exam (Z00.00) Active confirmed Problem 982637383 Gastric reflux (K21.9) Active confirmed Vital Signs Blood pressure diastolic 80 mm Hg 08/30/2024 sudhir ght is up 10 pounds since 06-27-24 Height 63 in 08/30/2024 weight is up 10 pounds since 06-27-24 Blood pressure systolic 112 mm Hg 08/30/2024 weig ht is up 10 pounds since 06-27-24 Weight 230 lbs 08/30/2024 weight is up 10 pounds since 06-27-24 BMI 40.74 kg/m2 08/30/2024 weight is up 10 pounds since 06-27-24 Encounters Encounter Location Date Provider Diagnosis Frankie Hammonds MD [address] [place] [address] [id number] 10/31/2023 Frankie Hammonds Hematuria, unspecified type R31.9 Frankie Hammonds MD [address] [place] [address] [id number] 10/18/2024 Frankie Hammonds Blood tests for routine general physical examination Z00.00 Frankie Hammonds MD [address] [place] [address] [id number] 10/24/2023 Frankie Hammonds Mild intermittent asthma without complication J45.20 ; Annual physical exam Z00.00 ; Asymptomatic microscopic hematuria R31.21 ; Esophageal dysphagia R13.19 ; Occipital neuralgia of left side M54.81 and Depression screening Z13.31 Frankie Hammonds MD [address] [place] [address] [id number] 12/25/2023 Frankie Hammonds Gastric reflux K21.9 ; Schatzki's ring K22.2 and Tension headache G44.209 Frankie Hammonds MD [address] [place] [address] [id number] 04/30/2024 Frankie Hammonds Hemorrhoids, externa l K64.4 Frankie Hammonds MD [address] [place] [address] [id number] 06/27/2024 Frankie Hammonds Pain in left knee M25.562 ; Pain in right knee M25.561 ; Schatzki's ring K22.2 and Tension headache G44.209 Frankie Hammonds MD [address] [place] [address] [id number] 08/30/2024 Frankie Hammonds Hyperemesis R11.10 Frankie Hammonds MD [address] [place] [address] [id number] 11/27/2023 Frankie Hammonds MD [address] [place] [address] [id number] 10/01/2024 Frankie Hammonds MD [address] [place] [address] [id number] 11/29/2023 Frankie Hammonds MD [address] [place] [id number] 05/21/2024 Frankie Hammonds MD [address] [place] [address] [phone] 05/21/2024 Frankie Hammonds MD [address] [place] [address] [phone] 08/29/2024 Frankie Hammonds Assessments Encounter Date Diagnosis (ICD Code) Assessment Notes Treatment Notes Treatment Clinical Notes Section Notes 10/31/2023 Hematuria, unspecified type (ICD-10 - R31.9) 10/18/2024 Blood tests for routine general physical examination (ICD-10 - Z00.00) 10/24/2023 Mild intermittent asthma without complication (ICD-10 - J45.20) do smaller increments. refer to pulmonology 10/24/2023 Annual physical exam (ICD-10 - Z00.00) labs reviewed and discussed with patient 12/25/2023 Gastric reflux (ICD-10 - K21.9) if she has soime symptoms have told her that pepcid works faster for short term treatment 12/25/2023 Schatzki's ring (ICD-10 - K22.2) not having any symptoms at present. does feel like food gets hung up at times 04/30/2024 Hemorrhoids, external (ICD-10 - K64.4) 06/27/2024 Pain in left knee (ICD-10 - M25.562) 06/27/2024 Pain in right knee (ICD-10 - M25.561) will have her go back to [facility] 08/30/2024 Hyperemesis (ICD-10 - R11.10) ct was negative for obstruction will refer to dr alaniz, patient verbalized understanding of medication and directions for use, Total time spent on the date of the encounter is 35 minutes including both face to face time spent and time spent reviewing documentation, pertinent lab data, studies and counseling the patient. 10/24/2023 Asymptomatic microscopic hematuria (ICD-10 - R31.21) was only 2 days after period, will recheck 12/25/2023 Tension headache (ICD-10 - G44.209) taking motrin 800 qidd for 2 or 3 days. sumatriptan didn't work 06/27/2024 Schatzki's ring (ICD-10 - K22.2) not bad enough to get dilitation at present 10/24/2023 Esophageal dysphagia (ICD-10 - R13.19) [facility] Radiology wll be called for an appt, pending diagnostic study 06/27/2024 Tension headache (ICD-10 - G44.209) has been using motrin and tyenol with good relief 10/24/2023 Occipital neuralgia of left side (ICD-10 - M54.81) referral to eli wolfe at [facility] ortho 10/24/2023 Depression screening (ICD-10 - Z13.31) negative screen Plan Of Treatment Pending Test Test Name Order Date XR GI SERIES 10/24/2023 Complete Blood Count Auto Diff 5 Comprehensive [place]. Panel Fast 5 Lipid Panel 10/18/2024 UA ClnCatch+Micro w/rflx Cult 10/18/2024 Next Appt Details Provider Name:Frankie Colorado ier, 10/25/2024 08:30:00 AM, [address] [place] [address], [address], [place], [place], [phone], Insurance Providers Payer Name Payer Address Payer Phone Subscriber Number Group Number Insured Name Patient Relationship to Insured Coverage Start Date Coverage End Date [address] [place] [phone] [id number] Nancy Golden Self - [facility] the [facility] [address] [facility] [address] [place] [id number] Nancy Golden Self - patient is the insured Medical (General) History Medical History History ICD Code 02/26/14 YELLOW FEVER VACCINATION
== END 2024-10-18 11:02 | disposition home or self-care (01) ==
LOC: HO.LNP 11:01
PROVIDERS: Visit Provider Internal Medicine
DX: Z00.00 Encounter for general adult medical examination without abnormal findings (principal); Z13.6 Encounter for screening for cardiovascular disorders
CPT/HCPCS: 80053; 80061; 81001; 85025

== ENCOUNTER 2024-11-27 14:00 | Outpatient (AMB) | payer OTHER, SELFPAY ==
[2024-11-27 14:15] VITALS: BP 120/80; PULSE 86; O2SAT 100
--- NOTE | 2024-11-27 14:15 | A.OFFVIS_ITS ---
Vital Signs 11/27/24 14:15 Height 5 ft 2 in BP 120/80 Pulse 86 Pulse Source Pulse Oximeter Pulse Oximetry (%) 100 Oxygen Delivery Method Room Air Intake Visit Reasons: Asthma [place] Archeology Professor Required: No Fertilizer Loader: Fertilizer Loader offered & declined Accompanied by: Self / Same As Patient Allergies No Known Allergies [No Known Allergies*] Allergy (Unverified 11/27/24 14:18) Medication List - Last Reconciled 11/27/24 by Bia France LPN albuterol sulfate 90 mcg/actuation 2 puffs inhalation Q4-6H PRN fluticasone furoate-vilanterol 200-25 mcg/dose (Breo Ellipta) 1 inh inhalation DAILY ipratropium-albuterol 0.5 mg-3 mg(2.5 mg base)/3 mL 3 mL inhalation Q6H PRN omeprazole 20 mg PO DAILY ondansetron 4 mg PO Q8H PRN pantoprazole 40 mg PO DAILY HPI HPI Asthma: Details: Nancy is a pleasant 38 year old female, never smoker with underlying asthma since childhood. At baseline, she has been well controlled on Breo 200 mcg and albuterol MDI. Today she presents for an acute visit. She reports recent dx of Influenza A via home test yesterday, roommate also with flu. Symptoms started Monday with URI symptoms, body aches, fevers and chills. She reports significant improvements in chest congestion since Monday however continues with harsh whooping cough. She has been using nebulizer with good effect. She denies any fevers or chills at this time. [facility] Social History Patient Tobacco Use Status: Never used Tobacco Review of Systems Const Denies chills, Denies excessive sweating, Denies fever(s), Denies headache(s) and Denies night sweats Eyes Denies dry eyes, Denies irritation and Denies itchy eyes ENT Reports Normal hearing present, Denies headache(s), Denies nasal congestion, Denies nasal discharge, Denies post nasal drip and Denies sore throat Card Denies chest pain, Denies chest pain at rest, Denies chest pain with activity, Denies claudication, Denies leg edema, Denies orthopnea and Denies paroxysmal nocturnal dyspnea Resp Denies chest congestion, Denies excessive phlegm production, Denies pain on inspiration, Denies pain with cough, Denies stridor and Denies wheezing Musc Denies myalgias Neuro Reports Normal hearing present and Denies headache(s) Endo Denies excessive sweating Soto/Lymph Denies lymphadenopathy Aller/Immun Denies itchy eyes, Denies seasonal rhinorrhea and Denies wheezing Physical Exam Vital Signs: Last Vital Signs Pulse 86 11/27/24 14:15 BP 120/80 11/27/24 14:15 Pulse Ox 100 11/27/24 14:15 Oxygen Delivery Method Room Air 11/27/24 14:15 Const General: cooperative, no acute distress, well developed and alert Orientation/consciousness: patient oriented x3 Limitations: no limitations HEENT Head: Yes normal to inspection, Yes normocephalic and Yes atraumatic Ears: hearing grossly normal bilaterally and external ears normal Eyes General: appearance normal, both eyes and all related structures Eyelids: Yes eyelids normal Sclerae: sclerae normal EOM: EOMs intact bilaterally Neck Neck: Yes normal visual inspection and Yes no lymphadenopathy Lymphatic: no lymphadenopathy noted Chest Chest palpation & inspection: normal inspection of the chest Resp Other: post exhalation cough Effort & Inspection: normal respiratory effort, able to speak in complete sentences, no audible wheezes, no stridor, not tachypneic, no tripod positioning and no use of accessory muscles Auscultation: clear to auscultation bilaterally and no wheezes Cardio Jugular venous distension: no JVD Rate: regular rate Rhythm: regular rhythm Skin Other: warm, dry General skin exam: no rashes or lesions noted Neuro General: patient oriented x3 Cranial nerves: Yes Normal hearing present Cognition (Neuro): normal cognition Gait exam (Neuro): Normal gait present Extrem General: Yes normal to inspection, Yes capillary refill normal, Yes no clubbing, cyanosis or edema and Yes no pedal edema Psych Appearance: grossly normal and well kempt Speech and movement: Normal speech and movement present and Clear speech present Affect: normal affect Attitude: cooperative Thought process: Normal thought process present Thought content: Normal thought content present Insight: Good insight present (Psych) Judgement: Good judgement present (Psych) Assessment & Plan Assessment & Plan (1) Asthma: Code(s): J45.909 - Unspecified asthma, uncomplicated Category: Medical Plan Will treat with prednisone. She is traveling Monday and if symptoms begin to worsen will take azithromycin. She is aware to call if symptoms do not improve. All questions were answered and patient is in agreement of plan. Will follow up in 3-6 months or sooner if needed. Medications: New prednisone 40 mg (2 x 20 mg) PO DAILY 10 tabs 0RF azithromycin For 250 mg dose pack: take 500 mg today (day 1), then 250 mg for 4 days (days 2-5) PO 6 tabs 0RF Refilled fluticasone furoate-vilanterol 200-25 mcg/dose (Breo Ellipta) 1 inh inhalation DAILY 60 ea 6RF albuterol sulfate 90 mcg/actuation 2 puffs inhalation Q4-6H PRN 8.5 grams 3RF shortness of breath or wheezing Coding Level of Care Code Est Pt Level 4 (58679) Diagnoses Asthma J45.909
--- OUTSIDE RECORDS SUMMARY | 2024-11-27 16:45 | XMS_ITS ---
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 Name Role Phone Frankie Hammonds MD Primary Care Provider Qasim Sands Unavailable [phone] Allergies No Known Allergies REASON FOR VISIT Patient presents today for vomittting Medications Medication SIG (Take, Route, Frequency, Duration) [...] Orally Four times a day 09/11/2024 Active Social History Tobacco Use: Social History [...] Never (0 point) Points 1 Interpretation Negative Section Notes: Nonsmoker; no sig alcohol Problems Problem Type SNOMED Code ICD Code Onset Dates Problem Status W/U Status Risk Notes Problem Gastroesophageal reflux disease (disorder) (850263889) Chronic GERD (K21.9) Active confirmed Problem Hiatal hernia (38883545) Hiatal hernia (K44.9) Active confirmed Problem Nausea and vomiting (21424306) Nausea with vomiting, unspecified (R11.2) Active confirmed Vital Signs Temperature 97.5 degrees Fahrenheit 09/11/19 25 Blood pressure systolic 000 mm Hg 09/11/19 25 Blood pressure diastolic 00 mm Hg 025 Height 5 ft 2 in in 09/11/2024 Weight 225 lbs 09/11/2024 BMI 41.15 kg/m2 09/11/2024 Encounters Encounter Location Date Provider Diagnosis [facility] [address] [place] [address] 09/11/2024 Qsaim Osborn Chronic GERD K21.9 ; Hiatal hernia K44.9 and Nausea with vomiting, unspecified R11.2 Assessments Encounter Date Diagnosis (ICD Code) Assessment Notes Treatment Notes Treatment Clinical Notes Section Notes 09/11/2024 Chronic GERD (ICD-10 - K21.9) Overall, Joanne appears quite well from a clinical standpoint and her GI symptoms seem to be much improved over the past couple weeks since having started pantoprazole rather than remaining on omeprazole. It does sound like she definitely has some chronic reflux going on in relation to the hiatal hernia and her weight. 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 As far as the recent vomiting this may have been some type of gastroenteritis but nonetheless seems to have resolved itself. Given her long-standing history of reflux requiring a long-standing PPI treatment, I did recommend she undergo an upper endoscopy for assessment to rule out any component of significant esophagitis, Prieto's esophagus, and to fully assess the hiatal hernia. Full consent was obtained for that, including risks of bleeding and perforation. The procedure will be done monitored anesthesia care. In the meantime, I advised her to continue a daily pantoprazole. We did review that trying to eat careful with a healthy diet, with small meals, minimal caffeine, and not eating for at least 2-3 hours before bedtime would help minimize her reflux and hopefully minimize her nausea. I did advise Joanne to call me prior to the endoscopy if she has any worsening of her upper GI complaints. Joanne was comfortable with this plan. Thank you again for allowing me to participate in Joanne's care. I shall continue to keep you advised of her progress. 09/11/2024 Hiatal hernia (ICD-10 - K44.9) Overall, Joanne appears quite well from a clinical standpoint and her GI symptoms seem to be much improved over the past couple weeks since having started pantoprazole rather than remaining on omeprazole. It does sound like she definitely has some chronic reflux going on in relation to the hiatal hernia and her weight. 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 As far as the recent vomiting this may have been some type of gastroenteritis but nonetheless seems to have resolved itself. Given her long-standing history of reflux requiring a long-standing PPI treatment, I did recommend she undergo an upper endoscopy for assessment to rule out any component of significant esophagitis, Prieto's esophagus, and to fully assess the hiatal hernia. Full consent was obtained for that, including risks of bleeding and perforation. The procedure will be done monitored anesthesia care. In the meantime, I advised her to continue a daily pantoprazole. We did review that trying to eat careful with a healthy diet, with small meals, minimal caffeine, and not eating for at least 2-3 hours before bedtime would help minimize her reflux and hopefully minimize her nausea. I did advise Joanne to call me prior to the endoscopy if she has any worsening of her upper GI complaints. Joanne was comfortable with this plan. Thank you again for allowing me to participate in Joanne's care. I shall continue to keep you advised of her progress. 09/11/2024 Nausea with vomiting, unspecified (ICD-10 - R11.2) Overall, Joanne appears quite well from a clinical standpoint and her GI symptoms seem to be much improved over the past couple weeks since having started pantoprazole rather than remaining on omeprazole. It does sound like she definitely has some chronic reflux going on in relation to the hiatal hernia and her weight. 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 As far as the recent vomiting this may have been some type of gastroenteritis but nonetheless seems to have resolved itself. Given her long-standing history of reflux requiring a long-standing PPI treatment, I did recommend she undergo an upper endoscopy for assessment to rule out any component of significant esophagitis, Prieto's esophagus, and to fully assess the hiatal hernia. Full consent was obtained for that, including risks of bleeding and perforation. The procedure will be done monitored anesthesia care. In the meantime, I advised her to continue a daily pantoprazole. We did review that trying to eat careful with a healthy diet, with small meals, minimal caffeine, and not eating for at least 2-3 hours before bedtime would help minimize her reflux and hopefully minimize her nausea. I did advise Joanne to call me prior to the endoscopy if she has any worsening of her upper GI complaints. Joanne was comfortable with this plan. Thank you again for allowing me to participate in Joanne's care. I shall continue to keep you advised of her progress. Plan Of Treatment Medication Medication Name Sig Start Date Stop Date Notes Pantoprazole Sodium 40 MG Oral for 30 Future Test Test Name Order Date UPPER GI ENDOSCOPY 09/11/2024 Next Appt Details Follow Up: prn, Reason: Provider Name:Qasim Osborn , 12/13/2024 01:00:00 PM, [address] [place] [address], [id number], Progress Notes * JOANNE ZARCODOB: 3 (39 yo F)Acc No.[id number]:09/11/2024 Progress Notes Patient:?JOANNE ZARCO Provider:?Qasim Osborn MD :1985???Age:39 Y???Sex:Female D ate:09/11/2024 Address:[address] [place], [place] [id number] Pcp:Frankie Hammonds MD Subjective: * Chief Complaints: * ???Patient presents today fo r vomittting * HPI: ???incontinence:? I saw Joanne in consultation today in regard to further evaluation of her chronic gastroesophageal reflux, hiatal hernia, nausea, and more recent vomiting. ?As you know, Joanne is a 39-year-old female who describes a long- standing history of reflux for which she had been on omeprazole up until recently with typically good relief. She does describe a long-standing history of some low- grade nausea and a sensitive stomach , particularly in the morning hours after awakening. However, things were stable until the latter part of July. ?During the last week of July she had a couple of episodes of fairly severe and prolonged vomiting, with the second one resulting in a trip to the ER requiring some IV hydration and antiemetics. A workup with a CT scan of the abdomen was negative other than a presumed uterine fibroid for which she is going to be seeing her manager software in followup. Laboratories were unremarkable including a CBC, chemistries, and LFTs. ?She did follow up with you and she was switched to pantoprazole which she thinks has gradually helped her feel better both in regard to the heartburn which had been increasing on omeprazole and in regard to the nausea. She's had no further episodes of vomiting. She has been eating comfortably and denies any dysphagia, odynophagia, early satiety, abdominal pain, jaundice, fevers, nor unintentional weight loss. Her bowel movements have been regular and without any signs of bleeding. She never saw any hematemesis or coffee grounds emesis. ?She did have an UGI series last November describing a moderate-sized hiatal hernia and a nonobstructing Schatzki's ring. There was no evidence any significant reflux or esophageal disease. ?She does have at least 3-4 cups of coffee daily, does not use any tobacco, and does not use any significant amount of alcohol. She does not use any marijuana nor NSAIDs. * ROS:?General/Constitutional:?Change in appetite?denies.?Chills?denies.?Fatigue?denies.?Ophthalmologic:?Comments?all negative.?ENT:?Comments?all negative.?Respiratory:?hemoptysis?denies.?Cough?denies.?Cardiovascular:?Chest pain?denies.?Orthopnea?denies.?Gastrointestinal:?Comments?See HPI for details.?Genitourinary:?Hematuria?denies.?Dysuria?denies.?Musculoskeletal:?Painful joints?denies.?Weakness?denies.?Skin:?Itching?denies.?Rash?denies.?Neurologic:?Headache?denies.?Seizures?denies.?Psychiatric:?Comments?all negative.? * Medical History:? * Surgical History:?LASIK eye surgery * Hospitalization/Major Diagno stic Procedure:?No Hospitalization History. * Family History:?Father: megan de dios?Mother: alive, diagnosed with HTN (hypertension).? No family history colon cancer. * Social History:?Tobacco Use:?Tobacco Use/Smoking?Patient is a?nonsmoker.?Drugs/Alcohol:?Alcohol Screen?Did you have a drink containing alcohol in the past year??Yes,?How often did you have a drink containing alcohol in the past year??Monthly or less (1 point), How many drinks did you have on a typical day when you were drinking in the past year??1 or 2 drinks (0 point),?How often did you have 6 or more drinks on one occasion in the past year??Never (0 point),?Points?1,?Interpretation?Negative.?Miscellaneous:?Marital status: single. 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 [employer]. ???Nonsmoker; no sig alcohol. * Medications:?TakingPantopraz ole Sodium 40 MG Tablet Delayed Release Oral Breo Ellipta 200-25 MCG/ACT Aerosol Powder Breath Activated INHALE ONE PUFF BY MOUTH EVERY DAY Inhalation Ondansetron [address] 1 TABLET ON THE TONGUE & ALLOW TO DISSOLVE ORALLY 3 TIMES A DAY NEEDED 7 DAYS. Oral Albuterol Sulfate HFA 108 (90 Base) MCG/ACT Aerosol Solution INHALE 2 PUFFS ORALLY EVERY 4 TO 6 HOURS NEEDED FOR SHORTNESS OF BREATH OR WHEEZING. Inhalation Gas Relief 80 MG Tablet Chewable 1 tablet after meals and at bedtime as needed Orally Four times a dayMedication List reviewed and reconciled with the patientTaking Pantoprazole Sodium 40 MG Tablet Delayed Release Oral Taking Breo Ellipta 200-25 MCG/ACT Aerosol Powder Breath Activated INHALE ONE PUFF BY MOUTH EVERY DAY Inhalation Taking Ondansetron [address] 1 TABLET ON THE TONGUE & ALLOW TO DISSOLVE ORALLY 3 TIMES A DAY NEEDED 7 DAYS. Oral Taking Albuterol Sulfate HFA 108 (90 Base) MCG/ACT Aerosol Solution INHALE 2 PUFFS ORALLY EVERY 4 TO 6 HOURS NEEDED FOR SHORTNESS OF BREATH OR WHEEZING. Inhalation Taking Gas Relief 80 MG Tablet Chewable 1 tablet after meals and at bedtime as needed Orally Four times a dayMedication List reviewed and reconciled with the patient * Allergies:?N.K.D.A.yes[Aller gies Verified] Objective: * Vitals:?Wt: 225 lbs, Ht: 5 f t 2 in, BMI:41.15 Index, BP: 000/00 mm Hg, Temp: 97.5. * Examination: ???General Examination: ?GENERAL APPEARANCE:?pleasant, well nourished, well developed, in no acute distress.?EYES:?sclera non-icteric.?ORAL CAVITY:?mucosa moist.?NECK/THYROID:?no cervical lymphadenopathy, neck supple.?SKIN:?nonjaundiced, no spider angiomata.?HEART:?S1, S2 normal.?LUNGS:?clear to auscultation bilaterally.?ABDOMEN:?normal bowel sounds, no guarding or rigidity, no guarding or rigidity, no masses palpable, soft, nontender, nondistended.?EXTREMITIES:?no edema.?NEUROLOGIC:?alert and oriented.? Assessment: * Assessment: 1.?Chronic GERD - K21.9 (Winifred fernandez)?2.?Hiatal hernia - K44.9?3.?Nausea with vomiting, unspecified - R11.2? Overall, Joanne appears bobby te well from a clinical standpoint and her GI symptoms seem to be much improved over the past couple weeks since having started pantoprazole rather than remaining on omeprazole. It does sound like she definitely has some chronic reflux going on in relation to the hiatal hernia and her weight. 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 As far as the recent vomiting this may have been some type of gastroenteritis but nonetheless seems to have resolved itself. Given her long-standing history of reflux requiring a long-standing PPI treatment, I did recommend she undergo an upper endoscopy for assessment to rule out any component of significant esophagitis, Prieto's esophagus, and to fully assess the hiatal hernia. Full consent was obtained for that, including risks of bleeding and perforation. The procedure will be done monitored anesthesia care. In the meantime, I advised her to continue a daily pantoprazole. We did review that trying to eat careful with a healthy diet, with small meals, minimal caffeine, and not eating for at least 2-3 hours before bedtime would help minimize her reflux and hopefully minimize her nausea. I did advise Joanne to call me prior to the endoscopy if she has any worsening of her upper GI complaints. Joanne was comfortable with this plan. Thank you again for allowing me to participate in Joanne's care. I shall continue to keep you advised of her progress. Plan: * Treatment: 2.?Hiatal hernia?Procedure: UPPER GI ENDOSCOPY (Ordered for 09/11/2024)* with MACsched for 12/13/24 at 1:00 pm 3.?Nausea with vomiting, unspecified?Procedure: UPPER GI ENDOSCOPY (Ordered for 09/11/2024)* with MACsched for 12/13/24 at 1:00 pm 4.?Others? Refill Pantoprazole Sodium Tablet Delayed Release, 40 MG, Oral, 30, 30 Tablet.?? * Procedure Codes:?1036F TOBAC CO [id number] BP SCR NOT PRFRM REC REASON NOS * Preventive Medicine:? ??Counseling:?Care goal follow-up plan:?Above Normal BMI Follow-up?Giving encouragement to exercise,?BMI management provided?Yes.? * Follow Up:?prn * * Sign off status: Completed true * Provider:?Qasim Osborn MD Date:? 025 Generated for Humza ramon/Carmina/Natasha on:?11/27/2024 04:45 PM EDT History and Physical Notes * HPI (History of Present Illness) Category Sub-Category Detail Notes Category Not es incontinence I saw Joanne in consultation today in regard to further evaluation of her chronic gastroesophageal reflux, hiatal hernia, nausea, and more recent vomiting. As you know, Joanne is a 39-year-old female who describes a long-standing history of reflux for which she had been on omeprazole up until recently with typically good relief. She does describe a long-standing history of some low-grade nausea and a sensitive stomach , particularly in the morning hours after awakening. However, things were stable until the latter part of July. During the last week of July she had a couple of episodes of fairly severe and prolonged vomiting, with the second one resulting in a trip to the ER requiring some IV hydration and antiemetics. A workup with a CT scan of the abdomen was negative other than a presumed uterine fibroid for which she is going to be seeing her manager software in followup. Laboratories were unremarkable including a CBC, chemistries, and LFTs. She did follow up with you and she was switched to pantoprazole which she thinks has gradually helped her feel better both in regard to the heartburn which had been increasing on omeprazole and in regard to the nausea. She's had no further episodes of vomiting. She has been eating comfortably and denies any dysphagia, odynophagia, early satiety, abdominal pain, jaundice, fevers, nor unintentional weight loss. Her bowel movements have been regular and without any signs of bleeding. She never saw any hematemesis or coffee grounds emesis. She did have an UGI series last November describing a moderate-sized hiatal hernia and a nonobstructing Schatzki's ring. There was no evidence any significant reflux or esophageal disease. She does have at least 3-4 cups of coffee daily, does not use any tobacco, and does not use any significant amount of alcohol. She does not use any marijuana nor NSAIDs. Examination Category Sub-Category Detail Notes Category Not es General Examination GENERAL APPEARANCE: pleasant , well [...]
--- OUTSIDE RECORDS SUMMARY | 2024-11-27 16:45 | XMS_ITS | Patient Health Record ---
[facility] [place] Address [address] [place] [address] Care Team Providers Care Infrastructure Engineer Name Role Phone Frankie Hammonds MD Primary Care Provider Pito Jfef [phone] Allergies No Known Allergies Reason For Referral [...] 06/18/2024 Encounters Encounter Location Date [facility] [place] [address] 06/18/2024 Pito Flower Xerosis of skin L85.3 ; Achilles tendinitis of right lower extremity M76.61 and Pain of right heel M79.671 [facility] [place] [address] [place] [address] 05/22/2024 Pito Flower Assessments Encounter Date Diagnosis [...] Insured Coverage Start Date Coverage End Date [facility] [address] [place] [address] [id number] Nancy Golden Self - patient is the insured Medical (General) History Medical History History ICD Code asthma covid-19 Headaches/Migraines Chicken pox knee and foot pain when active
--- OUTSIDE RECORDS SUMMARY | 2024-11-27 16:45 | XMS_ITS | Patient Health Record ---
Author Organization [facility] Address [address] [place] [address] Care Team Providers Care Manual Equipment Mechanic Name Role Phone Nasra ALBRECHT, Frankie Primary Care Provider Qasim Sands Unavailable [phone] Allergies No Known Allergies Reason For Referral [...] Orally Four times a day 09/11/2024 Active Immunizations Vaccine Route Administration Date Status Comme nts Influenza Unknown 05/21/2024 Administered Social History Tobacco Use: Social History Observation [...] Problem Status W/U Status Risk Notes Problem Nausea and vomiting (66294389) Nausea with vomiting, unspecified (R11.2) Active confirmed Problem Hiatal hernia (94730534) Hiatal hernia (K44.9) Active confirmed Problem Gastroesophageal reflux disease (disorder) (970947884) Chronic GERD (K21.9) Active confirmed Vital Signs Temperature 97.5 degrees Fahrenheit 09/11/2024 Blood pressure diastolic 00 mm Hg 09/11/2024 Height 5 ft 2 in in 09/11/2024 Blood pressure systolic 000 mm Hg 09/11/2024 Weight 225 lbs 09/11/2024 BMI 41.15 kg/m2 09/11/2024 Encounters Encounter Location Date Provider Diagnosis [facility] [address] [place] [address] 09/11/2024 Qasim Osborn Chronic GERD K21.9 ; Hiatal hernia K44.9 and Nausea with vomiting, unspecified R11.2 Assessments Encounter Date Diagnosis (ICD Code) Assessment Notes Treatment Notes Treatment Clinical Notes Section Notes 09/11/2024 Hiatal hernia (ICD-10 - K44.9) Overall, [...] does have nocturnal reflux 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 As far as the recent vomiting [...] keep you advised of her progress. 09/11/2024 Chronic GERD (ICD-10 - K21.9) Overall, [...] does have nocturnal reflux 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 As far as the recent vomiting [...] does have nocturnal reflux 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 As far as the recent vomiting [...] advised of her progress. Plan Of Treatment Future Test Test Name Order Date UPPER GI ENDOSCOPY 09/11/2024 Next Appt Details Provider Name:Qasim Russ Irena , 12/13/2024 01:00:00 PM, [address] [place] [address] , [place], [place], [phone], Insurance Providers Payer Name Payer Address Payer Phone Subscriber Number Group Number Insured Name Patient Relationship to Insured Coverage Start Date Coverage End Date [facility] [address] [place] [phone] [id number] JOANNE ZARCO Self - patient is the insured Medical (General) History Medical History History ICD Code Asthma--sees [facility] Pulmonology Denies CA,DM,CVA,renal disease Neg. sleep study Surgical History Surgery Date(Month/Year) LASIK eye surgery
--- OUTSIDE RECORDS SUMMARY | 2024-11-27 16:45 | XMS_ITS ---
Author Organization Frankie Hammonds MD Address [address] [facility] [address] [place] [phone] Care Team Providers Care Speech And Drama Teacher Name Role Frankie Rowan Primary Care Provider Allergies No Known Allergies REASON FOR VISIT 4 week Encounters Encounter Location Date Provider Diagnosis Frankie Hammonds MD [address] [facility] [address] [place] [phone] 10/18/2024 Frankie Hammonds Plan Of Treatment Next Appt Details Provider Name:Frankie jordan, 04/22/2025 09:00:00 AM, [address] [place] [address], [address], [phone], Provider Name:Frankie jordan, 10/24/2025 07:00:00 AM, [address] [place] [address], [address], [phone], Provider Name:Frankie jordan, 10/31/2025 08:30:00 AM, [address] [place] [address], [address], [phone], Progress Notes * Nancy ZARCODOB: 3 (39 yo F)Acc No.[id number]:10/18/2024 Progress Notes Patient:?Nancy ZARCO Provider:?Frankie Hammonds MD :1985???Age:39 Y???Sex:Female D ate:10/18/2024 Address:[address] [place], [place] [id number] Subjective: * Chief Complaints: * ???1. 4 [...] MD Date:?0 10/18/2024 Generated for Humza ramon/Carmina/eTjuliannsmitting on:?11/27/2024 04:44 PM EDT
--- OUTSIDE RECORDS SUMMARY | 2024-11-27 16:45 | XMS_ITS ---
Author Organization Frankie Hammonds MD Address [address] [place] [phone] Care Team Providers Care Vibratory Pile Driver Name Role Phone Frankie Hammonds Primary Care Provider Allergies No Known Allergies REASON FOR VISIT annual visit Medications Medication SIG (Take, Route, Frequency, Duration) Notes Start Date End Date Status Triamcinolone Acetonide 0.1 % 1 application Externally Two times a Week for 10 days 04/30/2024 Active Hyoscyamine Sulfate ER 0.375 MG 1 tablet Orally once a day for 30 day(s) 09/06/2018 Not-Taking Pantoprazole Sodium 40 MG 1 tablet 1/2 t o 1 hour before morning meal Orally Once a day for 30 days 08/30/2024 Active Breo Ellipta 200-25 MCG/INH 1 puff Inhalation Once a day 10/14/2021 Active Albuterol Sulfate 1.25 MG/3ML as directed Inhalation every 6 hrs 11/30/2023 Active Ondansetron 4 MG 1 tablet on the tong ue and allow to dissolve Orally Once a day for 30 day(s) Active Social History Tobacco Use: Social History [...] Never (0 point) Points 1 Interpretation Negative Vital Signs Blood pressure systolic 110 mm Hg 10/25/19 25 Blood pressure diastolic 70 mm Hg 025 Height 63 in 10/25/2024 Weight 236 lbs 10/25/2024 BMI 41.8 kg/m2 10/25/2024 weight is up 6 pounds since 08-30-24 Encounters Encounter Location Date Provider Diagnosis Frankie Hammonds MD [address] [place] [address] [address] [place], [place] [phone] 10/25/2024 Frankie Hammonds Hyperemesis R11.10 ; Annual physical exam Z00.00 ; Mild intermittent asthma without complication J45.20 ; BMI 37.0-37.9, adult Z68.37 ; Gastric reflux K21.9 and Depression screening Z13.31 Assessments Encounter Date Diagnosis (ICD Code) Assessment Notes Treatment Notes Treatment Clinical Notes Section Notes 10/25/2024 Hyperemesis (ICD-10 - R11.10) doing much better on pantoprazole and is seeing dr alaniz, will continue current regiment 10/25/2024 Annual physical exam (ICD-10 - Z00.00) labs reviewed andf discussed with patient 10/25/2024 Mild intermittent asthma without complication (ICD-10 - J45.20) doing well with the breo, will contnue current regiment 10/25/2024 BMI 37.0-37.9, adult (ICD-10 - Z68.37) advised on diet and exercise 10/25/2024 Gastric reflux (ICD-10 - K21.9) stable, will contnue current regiment 10/25/2024 Depression screening (ICD-10 - Z13.31) negative screen Plan Of Treatment Medication Medication Name Sig Start Date Stop Date Notes Pantoprazole Sodium 40 MG 1 tablet 1/2 t o 1 hour before morning meal Orally Once a day for 30 days 08/30/2024 Breo Ellipta 200-25 MCG/INH 1 puff Inhalation Once a day 0 10/14/2021 Albuterol Sulfate 1.25 MG/3ML as directe d Inhalation every 6 hrs 11/30/2023 Treatment Notes Assessment Notes Hyperemesis doing much better on pantoprazole and is seeing dr alaniz, will continue current regiment Annual physical exam labs reviewed andf discussed with patient Mild intermittent asthma wit hout complication doing well with the breo, will contnue current regiment BMI 37.0-37.9, adult advised on diet and exercise Gastric reflux stable, will contnue current regiment Depression screening negative screen Next Appt Details Follow Up: 6 Months, Reason: Provider Name:Frankie Colorado ier, 04/22/2025 09:00:00 AM, [address] [place] [address], [place] [address], [place], [place], [phone], Provider Name:Frankie randr, 10/24/2025 07:00:00 AM, [address] [place] [address], [place] [address], [place], [place], [phone], Provider Name:Frankie Colorado ier, 10/31/2025 08:30:00 AM, [address] [place] [address], [place] [address], [place], [place], [phone], Progress Notes * Nancy ZARCODOB: 3 (39 yo F)Acc No.[id number]:10/25/2024 Progress Notes Patient:?Nancy ZARCO Provider:?Frankie Hammonds MD :1985???Age:39 Y???Sex:Female D ate:10/25/2024 Address:[address] [place] [id number] Subjective: * Chief Complaints: * ???Annual visit * HPI: ???Depression Screening:?PHQ-9?Little interest or pleasure in doing things?Not at all,?Feeling down, depressed, or hopeless?Not at all,?Trouble falling or staying asleep, or sleeping too much?Not at all,?Feeling tired or having little energy?Not at all,?Poor appetite or overeating?Not at all,?Feeling bad about yourself or that you are a failure, or have let yourself or your family down?Not at all,?Trouble concentrating on things, such as reading the newspaper or watching television?Not at all,?Moving or speaking so slowly that other people could have noticed; or the opposite, being so fidgety or restless that you have been moving around a lot more than usual?Not at all,?Thoughts that you would be better off or of hurting yourself in some way?Not at all,?Total Score?0.?Interpretation and Intervention?Depression Screening Findings?Negative,?Follow-Up for Depression?: review of PHQ-9 found negative result, no follow-up needed.?Communication Needs:?Communication Needs?Does the patient have a hearing impairment?No,?Does the patient have a vision impairment??Yes,?If yes, what is the vision impairment??Glasses,?Does the patient have a cognition impairment??No.?SDOH Questions:?SDOH Questions?In the past year have you been worried about losing housing??No,?In the past year have you or any family members you live with been unable to get any of the following when it was really needed? Check all that apply:?None.?Symptom(s):? patient is a 39 yo female here for annual visit with review of recent labs and follow up of chronic issuespantoprozole is helping a lot/ saw stenciling machine tender and he felt mass was a fibroid. * ROS:?General/Constitutional:?Change in appetite?denies.?Chills?denies.?Fever?denies.?Ophthalmologic:?Blurred vision?denies.?Discharge?denies.?Pain?denies.?ENT:?Decreased hearing?denies.?Sore throat?denies.?Swollen glands?denies.?Endocrine:?Cold intolerance?denies.?Excessive thirst?denies.?Heat intolerance?denies.?Weight loss?denies.?Respiratory:?Cough?denies.?Shortness of breath at rest?denies.?Shortness of breath with exertion?denies.?Wheezing?denies.?Cardiovascular:?Chest pain at rest?denies.?Chest pain with exertion?denies.?Irregular heartbeat?denies.?Shortness of breath?denies.?Gastrointestinal:?Abdominal pain?denies.?Change in bowel habits?denies.?Diarrhea?denies.?Nausea?denies.?Rectal bleeding?denies.?Vomiting?denies .?Genitourinary:?Blood in urine?denies.?Difficulty urinating?denies.?Frequent urination?denies.?Urinary incontinence?Denies.?Musculoskeletal:?Painful joints?denies.?Weakness?denies.?Skin:?Dry skin?denies.?Itching?denies.?Denies?Mole(s),? changes in moles, new moles or any lesions of concern.?Denies?Photosensitivity.?Rash?denies.?Neurologic:?Dizziness?denies.?Fainting?denies.?Headache?denies.? * Medical History:? * Surgical History:? * Hospitalization/Major Diagno stic Procedure:? * Family History:?Father: megan khan 63 yrs, Healthy.?Mother: alive 63 yrs, Healthy.?1 brother(s) , 1 sister(s) . .? Denies mental health/substance abuse family history, Denies mental health/substance abuse family history Father Parkinson's, No pertinent family medical history, Denies mental health/substance abuse family history. * Social History:?Tobacco Use:?Tobacco Use/Smoking?Patient is a?nonsmoker,?Additional Findings: Tobacco Non-User?Current non-smoker, currently using no form of tobacco.?Drugs/Alcohol:?Alcohol Screen?Did you have a drink containing alcohol in the past year??Yes,?How often did you have a drink containing alcohol in the past year??Monthly or less (1 point),?How many drinks did you have on a typical day when you were drinking in the past year??1 or 2 drinks (0 point),?How often did you have 6 or more drinks on one occasion in the past year??Never (0 point),?Points?1,?Interpretation?Negative.?Miscellaneous:?Caffeine: yes, frequency:, 1 lg ice coffee a day. Children: no. Community involvements: yes. Exercise: yes, 2 times per week cario on a treadmill 2 times a week weights. Housing: renting. Living with: roommate. Marital status: single. Occupation: works full-time. Pets: cat x1. Travel outside of the [place]: no. * Medications:?TakingOndansetr on 4 MG Tablet Disintegrating 1 tablet on the tongue and allow to dissolve Orally Once a day Breo Ellipta 200-25 MCG/INH Aerosol Powder Breath Activated 1 puff Inhalation Once a day Albuterol Sulfate 1.25 MG/3ML Nebulization Solution as directed Inhalation every 6 hrs Triamcinolone Acetonide 0.1 % Cream 1 application Externally Two times a Week Pantoprazole Sodium 40 MG Tablet Delayed Release 1 tablet 1/2 to 1 hour before morning meal Orally Once a day Taking Ondansetron 4 MG Tablet Disintegrating 1 tablet on the tongue and allow to dissolve Orally Once a day Taking Breo Ellipta 200-25 MCG/INH Aerosol Powder Breath Activated 1 puff Inhalation Once a day Taking Albuterol Sulfate 1.25 MG/3ML Nebulization Solution as directed Inhalation every 6 hrs Taking Triamcinolone Acetonide 0.1 % Cream 1 application Externally Two times a Week Taking Pantoprazole Sodium 40 MG Tablet Delayed Release 1 tablet 1/2 to 1 hour before morning meal Orally Once a day Not-Taking/PRNHyoscyamine Sulfate ER 0.375 MG Tablet Extended Release 12 Hour 1 tablet Orally once a day Medication List reviewed and reconciled with the patientNot-Taking/PRN Hyoscyamine Sulfate ER 0.375 MG Tablet Extended Release 12 Hour 1 tablet Orally once a day Medication List reviewed and reconciled with the patient * Allergies:?N.K.D.A.yes[Aller gies Verified] Objective: * Vitals:?Ht: 63, Wt: 236, BMI :41.8, BP:110/70, Wt-k.05. weight is up 6 pounds since 08-30-24. * ???Past Orders: ???Lab:Complete Blood Count Auto Diff (Order Date - 10/18/2024) (Collection Date & Time - 10/18/2024 10:02 AM) ? Value Reference Range ?White Blood Count 5.3 4. 8-10.8 - X10*3/uL ?Red Blood Count 4.45 4.20 -5.50 - X10*6/uL ?Hemoglobin 12.9 12.0-16.0 - g/dl ?Hematocrit 38.4 37.0-47.0 - % ?Mean Corpuscular Volume 86.3 80.0-98.0 - fL ?Mean Corpuscular Hemoglobin 29.0 27.0-33.0 - pg ?Mean Corpuscular HGB Conc 33.6 31.0-35.0 - g/dl ?Red Cell Distribution Width 12.3 11.0-16.0 - % ?Platelet Count 297 160-4 00 - X10*3/uL ?Mean Platelet Volume 8.8 L 9.4-12.3 - fL ?Neutrophils Percent Auto 57.8 45-73 - % ?Imm Gran Pct Auto 0.2 0. 0-0.4 - % ?Lymphocytes Percent Auto 31.8 20-40 - % ?Monocytes Percent Auto 7.0 2-11 - % ?Eosinophils Percent Auto 2.1 0-4 - % ?Basophils Percent Auto 1.1 0-2 - % ?NRBC Pct Auto 0.0 0.0-0. 2 - /100WBC ?Neutrophils Absolute Auto 3.1 2.0-8.3 - x10*3/uL ?Imm Gran Abs Auto 0.01 0. 00-0.03 - X10*3/uL ?Lymphocytes Absolute Auto 1.7 1.2-4.9 - X10*3/uL ?Monocytes Absolute Auto 0.4 0.1-1.2 - X10*3/uL ?Eosinophils Absolute Auto 0.1 0.0-0.4 - X10*3/uL ?Basophils Absolute Auto 0.1 0.0-0.2 - X10*3/uL ?NRBC Abs Auto 0.000 0.0-0. 012 - X10*3/uL ???Lab:[facility] [place]. P elie Fast (Order Date - 10/18/2024) (Collection Date & Time - 10/18/2024 10:02 AM) ? Value Reference Range ?Sodium 136 135-145 - mmo l/L ?Bilirubin Total 0.4 0.0- 1.0 - mg/dL ?Aspartate Amino Transferase 24 5-31 - U/L ?Alanine Aminotransferase 25 0-31 - U/L ?Total Protein 6.7 6.5-8. 0 - g/dL ?Albumin Level 3.9 3.5-5. 0 - g/dL ?Alkaline Phosphatase 71 39-117 - U/L ?Potassium 4.1 3.3-5.1 - mmol/L ?Chloride 107 96-108 - mm ol/L ?Carbon Dioxide 24 22-29 - mmol/L ?Anion Gap 9 L 12-20 - ?Blood Urea Nitrogen 14 9-16 - mg/dL ?Creatinine 0.78 0.5-1.4 - mg/dL ?Estimated Glomerular Filt Rate > 60 - ?Glucose Fasting 89 60-9 9 - mg/dL ?Calcium 9.0 8.4-10.2 - m g/dL ???Lab:Lipid Panel (Order Da te - 10/18/2024) (Collection Date & Time - 10/18/2024 10:02 AM) ? Value Reference Range ?Triglycerides 64 <150 - mg/dL ?Cholesterol 184 <200 - m g/dL ?LDL Cholesterol Calculated 111 H <100 - mg/dL ?HDL Cholesterol 61 >40 - mg/dL ???Lab:UA ClnCatch+Micro w/r flx Cult (Order Date - 10/18/2024) (Collection Date & Time - 10/18/2024 10:02 AM) ? Value Reference Range ?Color Urine Yellow - ?Appearance Urine Clear - ?PH 6.5 5.0-9.0 - ?Glucose Urine UA Negative Neg ative - mg/dL ?Urine Blood Negative Negative - ?Specific [place] - Urine 1.015 1.005-1.025 - ?Urine Protein Negative Neg-Tr eugenia - mg/dL ?Urine Ketones Negative Negati ve - mg/dL ?Nitrite Urine Negative Negati ve - ?Leukocyte Esterase Urine Negative Negative - ?RBC Urine 0-2 0-2 - /HPF ?WBC Urine 0-5 0-5 - /HPF ?Squamous Epithelial Cell Urine 0-2 0-2 - /HPF ?Bacteria Urine None Seen None Seen - ?Hyaline Casts Urine 0-2 0-2 - /LPF ???Lab:UA CC w/rflx Micro + Cult (Order Date - 08/27/2024) (Collection Date & Time - 08/27/2024 12:54 PM) ? Value Reference Range ?Color Urine Yellow - ?Appearance Urine Clear - ?PH 8.5 5.0-9.0 - ?Glucose Urine UA Negative Neg ative - mg/dL ?Urine Blood Negative Negative - ?Specific [place] - Urine >= 1.030 H 1.005-1.025 - ?Urine Protein Negative Neg-Tr eugenia - mg/dL ?Urine Ketones Negative Negati ve - mg/dL ?Nitrite Urine Negative Negati ve - ?Leukocyte Esterase Urine Negative Negative - * Examination: ???General Examination: ?GENERAL APPEARANCE:?well developed, well nourished, in no acute distress.?HEAD:?normocephalic, atraumatic.?EYES:?pupils equal, round, reactive to light and accommodation, sclera non-icteric.?EARS:?normal.?ORAL CAVITY:?mucosa moist.?THROAT:?clear.?NECK/THYROID:?neck supple, full range of motion, no cervical lymphadenopathy, no bruits.?SKIN:?warm and dry, no suspicious lesions.?HEART:?regular rate and rhythm, S1, S2 normal, no murmurs.?LUNGS:?clear to auscultation bilaterally.?BREASTS:?done by stenciling machine tender.?ABDOMEN:?soft, nontender, nondistended, bowel sounds present, normal, no organomegaly , no masses palpable.?RECTAL EXAM:?done by stenciling machine tender.?FEMALE GENITOURINARY:?done by stenciling machine tender.?EXTREMITIES:?no clubbing, cyanosis, or edema.?NEUROLOGIC:?nonfocal, motor strength normal upper and lower extremities, sensory exam intact.? Assessment: * Assessment: 1.?Annual physical exam - Z0 0.00 (Primary)???2.?Hyperemesis - R11.10???3.?Mild intermittent asthma without complication - J45.20???4.?BMI 37.0-37.9, adult - Z68.37???5.?Gastric reflux - K21.9???6.?Depression screening - Z13.31??? Plan: * Treatment: 2.?Hyperemesis? Refill Pantoprazole Sodium Tablet Delayed Release, 40 MG, 1 tablet 1/2 to 1 hour before morning meal, Orally, Once a day, 30 days, 30, Refills 11.?? Notes: doing much better on pantoprazole and is seeing dr alaniz, will continue current regiment?? 3.?Mild intermittent asthma without complication? Continue Breo Ellipta Aerosol Powder Breath Activated, 200-25 MCG/INH, 1 puff, Inhalation, Once a day;?Continue Albuterol Sulfate Nebulization Solution, 1.25 MG/3ML, as directed, Inhalation, every 6 hrs.?? Notes: doing well with the breo, will contnue current regiment?? 4.?BMI 37.0-37.9, adult? Notes: advised on diet and exercise?? 5.?Gastric reflux? Notes: stable, will contnue current regiment?? 6.?Depression screening? Notes: negative screen?? * Procedure Codes:? * Preventive Medicine:? ??Counseling:?Care goal follow-up plan:?Counseling for abnormal BMI provided?Yes,?Above Normal BMI Follow-up?Giving encouragement to exercise.? * Follow Up:?6 Months * * Sign off status: Completed true * Provider:?Frankie Hammonds MD Date:?0 10/25/2024 Generated for Humza ramon/Carmina/eTransmitting on:?11/27/2024 04:44 PM EDT History and Physical Notes * HPI (History of Present Illness) Category Sub-Category Detail Notes Category Not es Symptom(s) patient is a 39 yo female here for annual visit with review of recent labs and follow up of chronic issuespantoprozole is helping a lot/ saw stenciling machine tender and he felt mass was a fibroid Depression Screening PHQ-9 Little interest or pleasure in doing things: Not at all Feeling down, depressed, or hopeless: No t at all Trouble falling or staying asleep, or sl eeping too much: Not at all Feeling tired or having little energy: N ot at all Poor appetite or overeating: Not at all Feeling bad about yourself o r that you are a failure, or have let yourself or your family down: Not at all Trouble concentrating on thi ngs, such as reading the newspaper or watching television: Not at all Moving or speaking so slowly that other people could have noticed; or the opposite, being so fidgety or restless that you have been moving around a lot more than usual: Not at all Thoughts that you would be b garima off or of hurting yourself in some way: Not at all Total Score: 0 Interpretation and Intervention Depression Jose Maria rodriges Findings: Negative Follow-Up for Depression: : review of PH Q-9 found negative result, no follow-up needed SDOH Questions SDOH Questions In the past year have you been worried about losing housing?: No In the past year have you or any family members you live with been unable to get any of the following when it was really needed? Check all that apply:: None Communication Needs Communication Needs Does the patient have a hearing impairment: No Does the patient have a vision impairmen t?: Yes ?If yes, what is the vision impairment?: Glasses Does the patient have a cognition impair ment?: No Examination Category Sub-Category Detail Notes Category Not es General Examination GENERAL APPEARANCE: well dev eloped, well nourished, in no acute distress HEAD: normocephalic, atrau matic EYES: pupils equal, round, reactive to light and accommodation, sclera non- icteric EARS: normal THROAT: clear NECK/THYROID: neck supple, full ra nge of motion, no cervical lymphadenopathy, no bruits HEART: regular rate and rhy thm, S1, S2 normal, no murmurs LUNGS: clear to auscultatio n bilaterally ABDOMEN: soft, nontender, non distended, bowel sounds present, normal, no organomegaly , no masses palpable NEUROLOGIC: nonfocal, motor stre ngth normal upper and lower extremities, sensory exam intact SKIN: warm and dry, no sandra picious lesions EXTREMITIES: no clubbing, cyanosi s, or edema BREASTS: done by stenciling machine tender RECTAL EXAM: done by stenciling machine tender FEMALE GENITOURINARY: done by stenciling machine tender ORAL CAVITY: mucosa moist
--- OUTSIDE RECORDS SUMMARY | 2024-11-27 16:46 | XMS_ITS ---
Author Organization Frankie Hammonds MD Address [address] [place] [phone] Care Team Providers Care Building Services Engineer Name Role Phone Frankie Hammonds Primary Care Provider [phone] Results Component Value Reference Range Notes Complete Blood Count Auto Di ff Reviewed date:10/18/2024 04:41:37 PM Interpretation: Performing Lab:[facility], [address] [place] [id number] Notes/Report: White Blood Count 5.3 4.8-10.8 X10*3/uL [...] NRBC Abs Auto 0.000 0.0-0.012 X10*3/uL Comprehensive [place]. Panel Fa Reviewed date:10/18/2024 04:40:58 PM Interpretation: Performing Lab:[address] [phone] Notes/Report: Sodium 136 135-145 mmol/L Potassium 4.1 [...] Alkaline Phosphatase 71 39-117 U/L Lipid Panel Reviewed date:10/18/2024 04:24:28 PM Interpretation: Performing Lab:[address] [phone] Notes/Report: Triglycerides 64 <150 mg/dL Desirable Triglyceride: [...] disease. UA ClnCatch+Micro w/rflx Cul t Reviewed date:10/18/2024 04:43:29 PM Interpretation: Performing Lab:[facility], [address] [place] [phone] Notes/Report: Urine, Clean Catch Color Urine Yellow Appearance Urine Clear PH 6.5 5.0-9.0 Glucose Urine UA Negative Negative mg/dL Urine Blood Negative Negative Specific [place] - Urine 1.015 1.005-1.025 Urine Protein Negative [...] Date Provider Diagnosis Frankie Hammonds MD [address] [place], [place] [phone] 10/18/2024 Frankie Hammonds Blood tests for routine general physical examination Z00.00 Assessments Encounter Date Diagnosis (ICD Code) Assessment Notes Treatment Notes Treatment Clinical Notes Section Notes 10/18/2024 Blood tests for routine general physical examination (ICD-10 - Z00.00) Plan Of Treatment Next Appt Details Provider Name:Frankie jordan, 04/22/2025 09:00:00 AM, [address], [address], [place], [place], [phone], Provider Name:Frankie Colorado ier, 10/24/2025 07:00:00 AM, [address] [facility], [address], [place], [phone], Provider Name:Frankie Colorado ier, 10/31/2025 08:30:00 AM, [address], [address], [place], [phone], Progress Notes * Nancy ZARCODOB: 3 (39 yo F)Acc No.[id number]:10/18/2024 Progress Note Patient:?Nancy ZARCO Provider:?Frankie Hammonds MD :1985???Age:39 Y???Sex:Female D ate:10/18/2024 Address:[address] [place], [place] [id number] Subjective: * Chief Complaints: * ???1. Yearly fasting labs. * Medical History:? Objective: * Vitals:? Assessment: * Assessment: 1.?Blood tests for routine g eneral physical examination - Z00.00 (Primary)??? Plan: * Treatment: * Procedure Codes:?50075 VENIP UNCT, ROUTINE* * * The named appointment provid er may or may not be the originator of this progress note, and it is not deemed complete until electronically signed by the appointment provider. Sign off status: Pending * Provider:?Frankie Hammonds MD Date:?0 10/18/2024 Generated for Humza ramon/Carmina/eTransmitting on:?11/27/2024 04:45 PM EDT
--- OUTSIDE RECORDS SUMMARY | 2024-11-27 16:46 | XMS_ITS ---
Author Organization [facility] Address [address] [facility] [place] [address] Care Team Providers Care Lay Midwife Name Role Phone Frankie Hammonds MD Primary Care Provider Pito Jeff [phone] Allergies No Known Allergies REASON FOR VISIT [...] 06/18/2024 Encounters Encounter Location Date Provider Diagnosis [facility] [address] [phone] 06/18/2024 Pito Flower Xerosis of skin L85. [...] * Nancy ZARCODOB: 3 (38 yo F)Acc No.[id number]:06/18/2024 Progress Notes Patient:?Chantel Nancy Provider:?Pito Flower D.P.M. :1985???Age:38 Y???Sex:Female D ate:06/18/2024 [address] [id number] Pcp:Frankie Hammonds MD Subjective: * Chief Complaints: * ???Last visit pcp 09/2023Ski n problem(s)Heel pain * HPI: ???Skin problems:?Nature:?dryness , scaling.?Location:?Top , Bottom , B/L.?Duration:?a few months.?Onset/Cause:?unknown.?Course:?unresolved.?Aggravated by:?shoe gear.?Treatments:?OTC creams.?Severity/Quality:?moderate.?Heel pain:?Location:?Back of heel , B/L.?Duration:?several days.?Onset/Cause:?Due to increaseds walking at [employer].?Course:?improved.?Aggravated:?standing, walking, walking first thing in the morning/after [...] ?no Children. ?Exercise: yes, work out with lion trainer twice a week. ?Marital status: single. ?Occupation: [employer], [employer]. * Medications:?TakingAlbuterol Sulfate HFA 108 (90 Base) [...] posterior and posterior/superior heel present, B/L, Neg Fenton.? Assessment: * Assessment: 1.?Achilles tendinitis of ri [...] 400 Gram, Refills 2.?? * Procedures:?Application of [place]-Soothe skin care lotion to both feet. ? [...] Interfil injection therapy, as well as surgical Leonard/Calcanectomy- tendon debridement surgical procedures if needed. Recommendations [...] * Sign off status: Completed true * Provider:?Vamsi SheridanP.M. Date:?05/29 Generated for Humza ramon/Carmina/Earlitting on:?11/27/2024 04:45 PM EDT History and Physical Notes * HPI (History of Present Illness) Category Sub-Category Detail Notes Category Not es Heel pain Duration: several days Location: Back of heel , B/L Onset/Cause: Due to increaseds wa lking at [employer] Aggravated: standing, walking, w alking first thing [...] posterior and posterior/superior heel present, B/L, Neg Fenton Neurological SENSORY: Neurological exa m reveals intact [...]
--- OUTSIDE RECORDS SUMMARY | 2024-11-27 16:46 | XMS_ITS | Patient Health Record ---
Author Organization Frankie Hammonds MD Address [address] [place], [place] [id number] Care Team Providers Care Billet Header Name Role Phone Frankie Hammonds Primary Care Provider Allergies No Known Allergies Results Component Value Reference Range Notes Complete Blood Count Auto Di ff Reviewed date:10/18/2024 04:41:37 PM Interpretation: Performing Lab:[facility], [address] [place] [phone] Notes/Report: White Blood Count 5.3 4.8-10.8 X10*3/uL [...] NRBC Abs Auto 0.000 0.0-0.012 X10*3/uL Comprehensive Lima. Panel Fa Reviewed date:10/18/2024 04:40:58 PM Interpretation: Performing Lab:[facility], [address] [place] [phone] Notes/Report: Sodium 136 135-145 mmol/L Potassium 4.1 [...] Panel Reviewed date:10/18/2024 04:24:28 PM Interpretation: Performing Lab:[facility], [address] [place] [phone] Notes/Report: Triglycerides 64 <150 mg/dL Desirable Triglyceride: [...] t Reviewed date:10/18/2024 04:43:29 PM Interpretation: Performing Lab:[facility], [address] [place] [phone] Notes/Report: Urine, Clean Catch Color Urine Yellow Appearance Urine Clear PH 6.5 5.0-9.0 Glucose Urine UA Negative Negative mg/dL Urine Blood Negative Negative Specific Gilbert - Urine 1.015 1.005-1.025 Urine Protein Negative Neg-Trace mg/dL Urine Ketones Negative Negative mg/dL Nitrite Urine Negative Negative Leukocyte Esterase Urine Negative Negative RBC Urine 0-2 0-2 /HPF WBC Urine 0-5 0-5 /HPF Squamous Epithelial Cell Urine 0-2 0-2 /HPF Bacteria Urine None Seen None Seen Hyaline Casts Urine 0-2 0-2 /LPF FL upper GI w air Reviewed date:12/25/2023 09:21:02 AM Interpretation:CBACK 12/24 UPPER GI Performing Lab: Notes/Report: [address] [address] Fluoroscopy Report Signed Patient: Nancy Golden MR#: [id number] [birth year] : 1985 Acct:[id number] Age/Sex: 38 / F ADM Date: 12/21/23 Loc: HO.XRAY Attending Dr: Frankie Hammonds MD Ordering Physician: Frankie Hammonds MD Date of Service: 12/21/23 Procedure(s): FL upper GI w air Accession Number(s): [id number] cc: Frankie Hammonds MD EXAMINATION: XR FLUOROSCOPY [...] Allen MD in OV> 12/22/23 1404 DD/ TD/TT: Child Development Associate Teacher: [address] [address] Fluoroscopy Report Signed Patient: Vivienne Golden MR#: [id number] 42 : 1985 Acct:[id number] Age/Sex: 38 / F ADM Date: 12/21/23 Loc: HO.XRAY Attending Dr: Frankie Hammonds MD Ordering Physician: Frankie Hammonds MD Date of Service: 12/21/23 Procedure(s): FL upp er GI w air Accession Number(s): [id number] cc: Frankie Hammonds MD EXAMINATION: XR FLUOROSCOPY [...] in OV> 12/22/23 1404 DD/ 0815 TD/TT: Child Development Associate Teacher: CANDY DURON w/rflx Micro + Cult Reviewed date:08/27/2024 04:28:23 PM Interpretation: Performing Lab:[facility], [address] [place] [phone] Notes/Report: [id number] Urine, Clean Catch Color Urine Yellow Appearance Urine Clear PH 8.5 5.0-9.0 Glucose Urine UA Negative Negative mg/dL Urine Blood Negative Negative Specific Gilbert - Urine >= 1.030 1.005-1.025 Urine Protein Negative Neg-Trace mg/dL Urine Ketones Negative Negative mg/dL Nitrite Urine Negative Negative Leukocyte Esterase Urine Negative Negative CT abdomen pelvis w con Reviewed date:08/27/2024 04:28:05 PM Interpretation: Performing Lab: Notes/Report: [address] [address] [address] Scan Report Signed Patient: Nancy Golden MR#: [id number] 44 : 1985 Acct:[id number] Age/Sex: 39 / F ADM Date: 08/27/24 Loc: HO.ED Attending Dr: Ordering Physician: Guido Villanueva MD Date of Service: 08/27/24 Procedure(s): CT abdomen pelvis w IV con Accession Number(s): [id number] cc: Frankie Hammonds MD; Guido Villanueva MD Report Number: [id number]: Total DLP = 1097.00 mGy-cm EXAMINATION: CT [...] by: Mihai Butterfield MD 08/27/2024 12:30 PM [facility] Dictated By: Mihai Butterfield MD Signed By: <Electronically signed by Mihai Butterfield MD in OV> 08/27/24 1230 DD/ 1020 TD/TT: 08/27/24 1211 Child Development Associate Teacher: [address] [address] [address] Scan Report Signed Patient: Vivienne Golden MR#: [id number] 42 : 1985 Acct:[id number] Age/Sex: 39 / F ADM Date: 08/27/24 Loc: HO.ED Attending Dr: Ordering Physician: Guido Villanueva MD Date of Service: 08/27/24 Procedure(s): CT abd omen pelvis w IV con Accession Number(s): [id number] cc: Frankie Hammonds MD; Guido Villanueva MD Report Number: [id number]: Total DLP = 1097.00 mGy-cm EXAMINATION: CT [...] by: Mihai Butterfield MD 08/27/2024 12:30 PM [facility] Dictated By: Mr jeovany Butterfield MD Signed By: <Electronically signed by Mihai Butterfield MD in OV> 08/27/24 1230 DD/ 1020 TD/TT: 08/27/24 1211 Child Development Associate Teacher: HARPREET US pelvic and transvaginal Reviewed date:10/01/2024 01:09:43 PM Interpretation:seeing her CURTAIN MENDER Performing Lab: Notes/Report: [address] [address] Ultrasound Report Signed Patient: Nancy Golden MR#: [id number] 42 : 1985 Acct:[id number] Age/Sex: 39 / F ADM Date: 08/27/24 Loc: HO.ED Attending Dr: Ordering Physician: Guido Villanueva MD Date of Service: 08/27/24 Procedure(s): US pelvic and transvaginal Accession Number(s): [id number] cc: Frankie Hammonds MD; Guido Villanueva MD [...] by: Mihai Butterfield MD 08/27/2024 02:09 PM [facility] Dictated By: Mihai Butterfield MD Signed By: <Electronically signed by Mihai Butterfield MD in OV> 08/27/24 1409 DD/ 1322 TD/TT: 08/27/24 1341 Child Development Associate Teacher: [address] [address] Ultrasound Report Signed Patient: Vivienne Golden MR#: [id number] 44 : 1985 Acct:[id number] Age/Sex: 39 / F ADM Date: 08/27/24 Loc: HO.ED Attending Dr: Ordering Physician: Guido Villanueva MD Date of Service: 08/27/24 Procedure(s): US pel and transvaginal Accession Number(s): [id number] cc: Frankie Hammonds MD; Guido Villanueva MD [...] by: Mihai Butterfield MD 08/27/2024 02:09 PM [facility] Dictated By: Mr jeovany Butterfield MD Signed By: <Electronically signed by Mihai Butterfield MD in OV> 08/27/24 1409 DD/ 1322 TD/TT: 08/27/24 1341 Child Development Associate Teacher: HARPREET Reason For Referral Reason bilateral knee pain Diagnosis 1 Pain in right knee ( M25.561) Diagnosis 2 Pain in left knee (M 25.562) Referral Organization Frankie Hammonds MD Referring Provider First Name Frankie Referring Provider Last Name Nasra Referring Provider Speciality Internal M edicine Referred Provider NICOLE FARFAN DICS Referred Provider Specialty Orthopedic S urgery General Notes Zahraa Torres 12:47:11 PM EDT > referral and [facility] appt request form faxed with note , Zahraa Torres 07/01/2024 08:35:38 AM EST > appt is with Harvey Knight MA , Zahraa Torres 07/01/2024 08:39:26 AM EST > info mailed to patient Referral Priority Routine Referral Appointment Date 07/18/2024 Reason Hyperemesis Diagnosis 1 Hyperemesis (R11.10) Referral Organization Frankie Hammonds MD Referring Provider First Name Frankie Referring Provider Last Name Nasra Referring Provider Speciality Internal M edicine Referred Provider Qasim Alaniz Referred Provider Specialty Gastroentero logy General Notes Zahraa Torres 0 08/30/2024 03:25:41 PM referral info faxed to Dr. Alainz office Referral Priority Routine Referral Appointment Date 09/11/2024 Medications Medication SIG (Take, Route, Frequency, Duration) Notes Start Date End Date Status Triamcinolone Acetonide 0.1 % 1 application Externally Two times a Week for 10 days 04/30/2024 Active Ondansetron 4 MG 1 tablet on the tong ue and allow to dissolve Orally Once a day for 30 day(s) Active Hyoscyamine Sulfate ER 0.375 MG 1 [...] directed Inhalation every 6 hrs 11/30/2023 Active Immunizations Vaccine Route Administration Date Status [...] Problem Status W/U Status Risk Notes Problem 607920626 Body mass index (BMI) 36.0-36.9, adult (Z68.36) Active confirmed Problem 045216734 Mild intermitten t asthma without complication (J45.20) Active confirmed Problem 667000376 Schatzki's ring (K22.2) Active confirmed Problem 752595442 Tension headache (G44.209) Active confirmed Problem 085287480 Oral phase dysphagia (R13.11) Active confirmed Problem 34684098 Irritable bowel syndrome with both constipation and diarrhea (K58.2) Active confirmed Problem 948145137 BMI 37.0-37.9, adult (Z68.37) Active confirmed Problem 463712898 Mild intermitten t asthmatic bronchitis with acute exacerbation (J45.21) Active confirmed Problem 961431471 Adult general medical exam (Z00.00) Active confirmed Problem 312786525 Gastric reflux (K21.9) Active confirmed Vital Signs Blood pressure diastolic 70 mm Hg 10/25/2024 sudhir ght is up 6 pounds since 08-30-24 Height 63 in 10/25/2024 weight is up 6 pounds since 08-30-24 Blood pressure systolic 110 mm Hg 10/25/2024 weig ht is up 6 pounds since 08-30-24 Weight 236 lbs 10/25/2024 weight is up 6 pounds since 08-30-24 BMI 41.8 kg/m2 10/25/2024 weight is up 6 pounds since 08-30-24 Encounters Encounter Location Date Provider Diagnosis Frankie Hammonds MD [address] [place] [id number] 10/18/2024 Frankie Hammonds Blood tests for routine general physical examination Z00.00 Frankie Hammonds MD [address] [place] [id number] 12/25/2023 Frankie Hammonds Gastric reflux K21.9 ; Schatzki's ring K22.2 and Tension headache G44.209 Frankie Hammonds MD [address] [place] [id number] 04/30/2024 Frankie Hammonds Hemorrhoids, externa l K64.4 Frankie Hammonds MD [address] [place] [id number] 06/27/2024 Frankie Hammonds Pain in left knee M25.562 ; Pain in right knee M25.561 ; Schatzki's ring K22.2 and Tension headache G44.209 Frankie Hammonds MD [address] [place] [id number] 08/30/2024 Frankie Hammonds Hyperemesis R11.10 Frankie Hammonds MD [address] [place] [address] [id number] 10/25/2024 Frankie Hammonds Hyperemesis R11.10 ; Annual physical exam Z00.00 ; Mild intermittent asthma without complication J45.20 ; BMI 37.0-37.9, adult Z68.37 ; Gastric reflux K21.9 and Depression screening Z13.31 Frankie Hammonds MD [address] [place] [address] [id number] 10/01/2024 Frankie Hammonds MD [address] [place] [address] [id number] 11/29/2023 Fraknie Hammonds MD [address] [place] [address] [id number] 05/21/2024 Frankie Hammonds MD [address] [place] [id number] 05/21/2024 Frankie Hammonds MD [address] [place] [address] [id number] 08/29/2024 Frankie Hammonds Assessments Encounter Date Diagnosis (ICD Code) Assessment Notes Treatment Notes Treatment Clinical Notes Section Notes 10/18/2024 Blood tests for routine general physical examination (ICD-10 - Z00.00) 12/25/2023 Gastric reflux (ICD-10 - K21.9) if [...] M25.561) will have her go back to [facility] 08/30/2024 Hyperemesis (ICD-10 - R11.10) ct was negative for obstruction will refer to dr alaniz, patient verbalized understanding of medication and directions for use, Total time spent on the date of the encounter is 35 minutes including both face to face time spent and time spent reviewing documentation, pertinent lab data, studies and counseling the patient. 10/25/2024 Hyperemesis (ICD-10 - R11.10) doing much better on pantoprazole and is seeing dr alaniz, will continue current regiment 10/25/2024 Annual physical exam (ICD-10 - Z00.00) labs reviewed andf discussed with patient 12/25/2023 Tension headache (ICD-10 - G44.209) taking motrin 800 qidd for 2 or 3 days. sumatriptan didn't work 06/27/2024 Schatzki's ring (ICD-10 - K22.2) not bad enough to get dilitation at present 10/25/2024 Mild intermittent asthma without complication (ICD-10 - J45.20) doing well with the breo, will contnue current regiment 06/27/2024 Tension headache (ICD-10 - G44.209) has been using motrin and tyenol with good relief 10/25/2024 BMI 37.0-37.9, adult (ICD-10 - Z68.37) advised on diet and exercise 10/25/2024 Gastric reflux (ICD-10 - K21.9) stable, will contnue current regiment 10/25/2024 Depression screening (ICD-10 - Z13.31) negative screen Plan Of Treatment Pending Test Test Name Order Date XR GI SERIES 10/24/2023 Next Appt Details Provider Name:Frankie Colorado ier, 04/22/2025 09:00:00 AM, [address] [place] [address], Suite [facility], [place], [place], [phone], Provider Name:Frankie Colorado ier, 10/24/2025 07:00:00 AM, [address] [place] [address], Suite [facility], [place], [place], [phone], Provider Name:Frankie Colorado ier, 10/31/2025 08:30:00 AM, [address] [place] [address], [address], [place], [place], [phone], Insurance Providers Payer Name Payer Address Payer Phone Subscriber Number Group Number Insured Name Patient Relationship to Insured Coverage Start Date Coverage End Date [address] [facility] [place] [phone] [id number] Nancy Golden Self - patient is the insured [facility] [address] [facility] [address] [place] [address] [phone] Nancy Golden Self - patient is the insured Medical (General) History Medical History History ICD Code 02/26/14 YELLOW FEVER VACCINATION
--- OUTSIDE RECORDS SUMMARY | 2024-11-27 16:46 | XMS_ITS ---
Author Organization [facility] Address [address] [place] [address] Care Team Providers Care Hospital Medicine Director Name Role Phone Frankie Hammonds MD Primary Care Provider Pito Jeff [phone] REASON FOR VISIT FILM SOUND COORDINATOR Encounters Encounter Location Date Provider Diagnosis [facility] [address] [place] [address] 05/22/2024 Pito Flower Plan Of Treatment No Information Progress Notes * Nancy ZARCODOB: 3 (38 yo F)Acc No.[id number]:05/22/2024 Patient:?Nancy Zarco :1985???Age:38 Y???Sex:Female Address:[address] [place] [address] * true * Date:? Generated for Printi ng/Faclaudineg/eTransmitting on:?11/27/2024 04:45 PM EDT
== END 2024-11-27 14:37 | disposition home or self-care (01) ==
LOC: HO.HPSW 14:01
PROVIDERS: PCP Internal Medicine; Visit Provider Nurse Practitioner Family
DX: J45.909 Unspecified asthma, uncomplicated (principal)
CPT/HCPCS: 99214

== ENCOUNTER 2024-12-13 09:15 | Day surgery (SDC) | payer OTHER, SELFPAY ==
[2024-12-11 10:24] VITALS: BMI 41.1
--- NOTE | 2024-12-11 13:26 | HO.ANESPROP2 ---
Documented by User: Yuliya Angelo NP 12/11/24 13:27 HPI - Anesthesia Eval Consult details Narrative: 39yo F for Upper Endoscopy [facility] Active Problems Active Problems: All Active Problems Bronchitis (Acute) Dyspnea (Acute) Paroxysmal nocturnal dyspnea (Acute) Asthma (Acute) Past Medical History Medical History Nausea & vomiting Hiatal hernia GERD (gastroesophageal reflux disease) Asthma Surgical History Surgical History S/P LASIK surgery of both eyes Social History Social History Patient Tobacco Use Status: Never used Tobacco Are you DNR?: No Advance Directives: No Advance Directives Information Provided: Yes FDLMP: 12/08/2024 Meds Allergies Allergy/AdvReac Type Severity Reaction Status Date / Time No Known Allergies Allergy Unverified 11/27/24 14:18 [No Known Allergies*] Home Medications ?Medication ?Instructions ?Recorded ?Confirmed ?Last Taken ?Type ondansetron 4 mg disintegrating 4 mg PO Q8H PRN nausea and vomiting 11/14/23 12/13/24 Unknown History tablet pantoprazole 40 mg tablet,delayed 40 mg PO DAILY 11/27/24 12/13/24 12/13/24 09:20 History release simethicone 80 mg chewable tablet 80 mg PO QIDACHS PRN Digestion 12/11/24 12/11/24 Unknown History (Gas Relief (simethicone)) vitamin B6-vitamin E-magnesium 2 PO DAILY 12/13/24 Unknown History Exam Height,Weight and Vital Signs: Height 5 ft 2 in Weight 102.058 kg Assessment and Plan Assessment Anesthesia Assessment: Chart Reviewed Documented by User: Mitali Power MD 12/13/24 10:38 PMFSH Past Medical History Medical History Nausea & vomiting Hiatal hernia GERD (gastroesophageal reflux disease) Asthma Family History Family history of problems with anesthesia: No Surgical History Surgical History S/P LASIK surgery of both eyes History of Problems with Anesthesia: No Social History Social History Patient Tobacco Use Status: Never used Tobacco Are you DNR?: No Advance Directives: No Advance Directives Information Provided: Yes FDLMP: 12/08/2024 Meds Allergies Allergy/AdvReac Type Severity Reaction Status Date / Time No Known Allergies Allergy Unverified 11/27/24 14:18 [No Known Allergies*] Home Medications ?Medication ?Instructions ?Recorded ?Confirmed ?Last Taken ?Type ondansetron 4 mg disintegrating 4 mg PO Q8H PRN nausea and vomiting 11/14/23 12/13/24 Unknown History tablet pantoprazole 40 mg tablet,delayed 40 mg PO DAILY 11/27/24 12/13/24 12/13/24 09:20 History release simethicone 80 mg chewable tablet 80 mg PO QIDACHS PRN Digestion 12/11/24 12/11/24 Unknown History (Gas Relief (simethicone)) vitamin B6-vitamin E-magnesium 2 PO DAILY 12/13/24 Unknown History Exam Airway Mallampati Class: II TM Dist: >3cm Neck ROM: Full Heart: rrr Lungs: cta Assessment and Plan Assessment Anesthesia Assessment: Anesthesia Plan Discussed Final Anesthetic Review Family History of Problems with Anesthesia: No History of Problems with Anesthesia: No NPO: Yes ASA Class: II Final Preanesthetic Review: No Changes in Pt Med Stat, Meds/Allgs Chart Reviewed, Consent Obtained/Reviewed and Anes Risks/Benef Reviewed Patient Risk: Low Procedure Risk: Low Anesthetic Plan Anesthetic Plan: MAC: Disposition: Standard PACU
[2024-12-13 09:31] VITALS: BP 128/73; PULSE 78; RESP 18; TEMP 36.6; O2SAT 96; BMI 42.9
[2024-12-13 09:32] LABS: UPreg QC Valid YES; Urine Pregnancy NEGATIVE (NEGATIVE)
[2024-12-13] MEDS: Lactated Ringers 1,000 ML 100 ML IVCONT (09:53)
[2024-12-13 11:30] VITALS: BP 100/61; PULSE 56; RESP 16; TEMP 36.1; O2SAT 96
--- NOTE | 2024-12-13 11:32 | PM.OP ---
Brief Operative Note Date of Service: 12/13/24 Pre-op diagnosis: GERD Post-op diagnosis: other (Hiatal hernia, Gastric polyps) Procedure: EGD with biopsies Surgeon: Qasim Osborn MD Anesthesia: MAC Was an Technical Stenographer used for this Procedure?: No Estimated blood loss (mL): 2.0 Pathology: other (A. EG Junction at 34cm B. Gastric polyps) Condition: stable Disposition: PACU
[2024-12-13 11:45] VITALS: BP 119/85; PULSE 82; RESP 16; TEMP 36.1; O2SAT 97
--- NOTE | 2024-12-13 12:28 | OP_ITS ---
DATE OF SERVICE: 12/13/2024 SURGEON: Qasim Osborn MD INDICATIONS: The patient presents for evaluation of chronic gastroesophageal reflux. Full consent has been obtained from her for this, including risks of bleeding and perforation. PREOPERATIVE DIAGNOSIS: Gastroesophageal reflux. POSTOPERATIVE DIAGNOSIS: PROCEDURE PERFORMED: Esophagogastroduodenoscopy with biopsies. ESTIMATED BLOOD LOSS: COMPLICATIONS: ANESTHESIA: Monitored anesthesia care. ASSISTANTS: SPECIMENS: POSTOPERATIVE DIAGNOSES: Gastroesophageal reflux, hiatal hernia, gastric polyps, rule out Prieto esophagus. DESCRIPTION OF PROCEDURE: The patient was placed in left lateral decubitus position. The Olympus video gastroscope was passed in the posterior oropharynx and upper esophagus under direct vision. The scope was advanced slowly to the distal esophagus. The gastroesophageal junction appeared at 34 cm. This area was slightly irregular consistent with reflux. There was no evidence of any esophagitis nor any definitive evidence of Prieto mucosa. There was a moderate-sized hiatal hernia. The scope was advanced to pylorus and the duodenum was cannulated to the descending portion. The duodenum including the bulb appeared normal without mass or ulceration. The scope was withdrawn back in the stomach. The gastric antrum and body appeared normal with good peristalsis. The scope was retroflexed visualizing the proximal stomach carefully, which appeared normal, without mass or ulceration, other than hyperplastic appearing gastric polyps. The scope was straightened. Two of the gastric polyps were biopsied. The scope was withdrawn back to the esophagus. Biopsies were obtained at the EG junction at 34 cm. Proximal to that the esophageal mucosa appeared normal. The scope was withdrawn from the patient. She tolerated the procedure well and was returned to recovery area in stable condition. IMPRESSION: 1. Hiatal hernia, gastroesophageal reflux, rule out Prieto esophagus. 2. Gastric polyps. PLAN: The results of biopsy will be checked. If there is evidence of Prieto esophagus without dysplasia, I would recommend a repeat upper endoscopy in 3 years. She will otherwise continue her daily pantoprazole as she does report that is working well for her. If things remain stable, she will otherwise see me on a p.r.n. basis. MD HIREN Leal/PHIL / [phone]
== END 2024-12-13 12:05 | disposition home or self-care (01) ==
PROVIDERS: Nurse Practitioner; PCP Internal Medicine; Visit Provider Internal Medicine
PROC: 0DJ08ZZ Inspection of Upper Intestinal Tract, Via Natural or Artificial Opening Endoscopic (ICD-10-PCS; CPT 43235; principal; 2024-12-13 10:30)
DX: K21.9 Gastro-esophageal reflux disease without esophagitis (principal); R11.2 Nausea with vomiting, unspecified; K31.7 Polyp of stomach and duodenum; K44.9 Diaphragmatic hernia without obstruction or gangrene; J45.909 Unspecified asthma, uncomplicated; Z79.51 Long term (current) use of inhaled steroids; Z79.899 Other long term (current) drug therapy; Z98.890 Other specified postprocedural states
CPT/HCPCS: 43239; 81025; 88305; 88313; 88342; J2003; J2704

== ENCOUNTER 2025-03-04 13:59 | Outpatient (REF) | payer OTHER, SELFPAY ==
--- OUTSIDE RECORDS SUMMARY | 2024-10-18 13:00 | XMS_ITS ---
Author Organization Frankie Hammonds MD Address 10 [facility] [address] [place] [phone] Care Team Providers Care Environmental Protection Specialist Name Role Frankie Rowan Primary Care Provider [phone] Allergies No Known Allergies REASON FOR VISIT 4 week Encounters Encounter Location Date Provider Diagnosis Frankie Hammonds MD [address] [facility] [address] [place] [address] [phone] 10/18/2024 Frankie Hammonds Plan Of Treatment Next Appt Details Provider Name:Frankie jordan, 04/22/2025 09:00:00 AM, [address] [place] [address], [address], [phone], Provider Name:Frankie jordan, 10/24/2025 07:00:00 AM, [address] [place] [address], [address], [phone], Provider Name:Frankie jordan, 10/31/2025 08:30:00 AM, [address] [place] [address], [address], [phone], Progress Notes * Nancy ZARCODOB: 3 (39 yo F)Acc No.[id number]:10/18/2024 Progress Notes Patient: Nancy ZIMMERMAN Provider: Sarabjit Hammonds MD :1985 A ge:39 Y S ex:Female Date:10/18/2024 Address:[address] [place], [place] [phone] Subjective: * Chief Complaints: * 1 . [...] 10/18/2024 Generated for Humza ramon/Carmina/Earlitting on: 0 03/04/2025 02:50 PM EDT
--- OUTSIDE RECORDS SUMMARY | 2024-12-13 06:30 | XMS_ITS ---
Author Organization [facility] Address [address] [place] [phone] Care Team Providers Care Golf Course Patroller Name Role Phone Frankie Hammonds MD Primary Care Provider Qasim Sands [phone] REASON FOR VISIT gerd,hitala hernia,nausea & vomiting Encounters Encounter Location Date Provider Diagnosis [facility] [address] [place] [id number] 12/13/2024 Qasim Osborn Gastro-esophageal reflux disease without esophagitis K21.9 ; Hiatal hernia K44.9 and Gastric polyps K31.7 Assessments Encounter Date Diagnosis (ICD Code) Assessment Notes Treatment Notes Treatment Clinical Notes Section Notes 12/13/2024 Gastro-esophagea l reflux disease without esophagitis (ICD-10 - K21.9) 12/13/2024 Hiatal hernia (ICD-10 - K44.9) 12/13/2024 Gastric polyps (ICD-10 - K31.7) Plan Of Treatment No Information Progress Notes * JOANNE ZARCODOB: 3 (39 yo F)Acc No.[id number]:12/13/2024 EGD/MAC Patient: ASHLEY ZIMMERMANICA Provider: Yury Osborn MD :1985 A ge:39 Y S ex:Female Date:12/13/2024 Address:[address] [place], [place] [phone] Pcp:Frankie Hammonds MD Subjective: * Chief Complaints: * 1 . Gerd,hitala hernia,nausea & vomiting. * Medical History: Objective: * Vitals: Assessment: * Assessment: 1. G maynor-esophageal reflux disease without esophagitis - K21.9 (Primary) 2 .?Hiatal hernia - K44.9 3 . G astric polyps - K31.7 Plan: * Treatment: * Procedure Codes: 4 3239 UPPER GI ENDOSCOPY, BIOPSY * * The named appointment provid er may or may not be the originator of this progress note, and it is not deemed complete until electronically signed by the appointment provider. Sign off status: Pending * Provider: Yury Osborn MD Date: 0 12/13/2024 Generated for Humza ramon/Carmina/Earlitting on: 0 03/04/2025 02:50 PM EDT
--- OUTSIDE RECORDS SUMMARY | 2025-03-04 14:51 | XMS_ITS | Patient Health Record ---
Author Organization [facility] Address [address] [facility] [place] [address] Care Team Providers Care Correctional Program Officer Name Role Phone Frankie Hammonds MD Primary Care Provider Pito Jeff [phone] Allergies No Known Allergies Reason For Referral [...] except for between the toes Twice a day; Duration: 30 days Active Albuterol Sulfate HFA 108 [...] 06/18/2024 Encounters Encounter Location Date Provider Diagnosis [address] [place] [address] 06/18/2024 Pito Flower Xerosis of skin L85.3 ; Achilles tendinitis of right lower extremity M76.61 and Pain of right heel M79.671 [facility] [address] [place] [address] 05/22/2024 Pito Flower Assessments Encounter Date Diagnosis [...] Insured Coverage Start Date Coverage End Date [facility] [address] [place] [address] [id number] Nancy Golden Self - patient is the insured Medical (General) History Medical History History ICD Code asthma covid-19 Headaches/Migraines Chicken pox knee and foot pain when active
== END 2025-03-04 14:00 | disposition home or self-care (01) ==
LOC: HO.LAB 13:59
PROVIDERS: PCP Internal Medicine; Visit Provider Internal Medicine
DX: Z13.89 Encounter for screening for other disorder (principal)

== ENCOUNTER 2025-03-05 17:05 | Outpatient (REF) | payer OTHER, SELFPAY ==
--- OUTSIDE RECORDS SUMMARY | 2024-10-18 13:00 | XMS_ITS ---
Author Organization Frankie Hammonds MD Address [address] [facility] [address] [place] [address] [phone] Care Team Providers Care Slip Cover Cutter Name Role Frankie Rowan Primary Care Provider Allergies No Known Allergies REASON FOR VISIT 4 week Encounters Encounter Location Date Provider Diagnosis Frankie Hammonds MD [address] [facility] [address] [place] [address] [phone] 10/18/2024 Frankie Hammonds Plan Of Treatment Next Appt Details Provider Name:Frankie jordan, 04/22/2025 09:00:00 AM, [address] [place] [address], [address], [phone], Provider Name:Frankie jordan, 10/24/2025 07:00:00 AM, [address] [place] [address], [address], [phone], Provider Name:Frankie jordan, 10/31/2025 08:30:00 AM, [address] [place] [address], [address], [phone], Progress Notes * Nancy ZARCODOB: 3 (39 yo F)Acc No.[id number]:10/18/2024 Progress Notes Patient: Nancy ZIMMERMAN Provider: Sarabjit Hammonds MD :1985 A ge:39 Y S ex:Female Date:10/18/2024 Address:[address] [place], [place] [phone] Subjective: * Chief Complaints: * 1 . 4 week. * ROS: G eneral/Constitutional: Denies C hills. D enies F atigue. D enies F ever. D enies H eadache. E NT: Denies S ore throat. R espiratory: Denies C ough. D enies S hortness of breath at rest. D enies S hortness of breath with exertion. G astrointestinal: Denies D iarrhea. D enies N ausea. * Medical History: YELLOW FEVER VACCINATION. * Allergies: N .K.D.A. Objective: * Vitals: Assessment: Plan: * Treatment: * * The named appointment provid er may or may not be the originator of this progress note, and it is not deemed complete until electronically signed by the appointment provider. Sign off status: Pending * Provider: Sarabjit Hammonds MD Date: 0 10/18/2024 Generated for Humza ramon/Carmina/Earlitting on: 0 03/05/2025 05:07 PM EDT
--- OUTSIDE RECORDS SUMMARY | 2025-03-05 17:07 | XMS_ITS | Patient Health Record ---
[facility] Organization [facility] [address] [facility] Aarti FayeAMY walker [address] Care Team Providers Care Test Center Administrator Name Role Phone Frankie Hammonds MD Primary Care Provider Pito Jeff [phone] Allergies No Known Allergies Reason For Referral [...] 06/18/2024 Encounters Encounter Location Date Provider Diagnosis [address] [place] [address] 06/18/2024 Pito Flower Xerosis of skin L85.3 ; Achilles tendinitis of right lower extremity M76.61 and Pain of right heel M79.671 [facility] [address] [place] [address] 05/22/2024 Pito Flower Assessments Encounter Date Diagnosis [...] Insured Coverage Start Date Coverage End Date [facility] [address] [place] [address] [id number] Nancy Golden Self - patient is the insured Medical (General) History Medical History History ICD Code asthma covid-19 Headaches/Migraines Chicken pox knee and foot pain when active
[2025-03-06 14:00] LABS: E. coli EAEC Not Detected (Not Detect.); E. coli EPEC Not Detected (Not Detect.); E. coli ETEC Not Detected (Not Detect.); E. coli STEC Not Detected (Not Detect.); Shigella sp./EIEC Not Detected (Not Detect.)
== END 2025-03-05 17:06 | disposition home or self-care (01) ==
LOC: HO.LNP 17:05
PROVIDERS: Visit Provider Internal Medicine
DX: K52.9 Noninfective gastroenteritis and colitis, unspecified (principal)
CPT/HCPCS: 87507